=== PATIENT | female | born 1965 | race Two or more races ===

== ENCOUNTER 2023-02-21 11:23 | Inpatient (IN) | payer BC, OTHER ==
[2023-02-21] VITALS (30 sets, daily range): BP systolic 104–251; BP diastolic 40–105; PULSE 52–79; RESP 12–20; TEMP 95.1–98.4; O2SAT 92–99
[~2023-02-21] VITALS: Ht 157.5 cm; Wt 118.0 kg
[2023-02-21] MEDS ORDERED: ROCURONIUM 10MG/ML 10ML VIAL IV ONE ×2 (11:32→11:45)
[2023-02-21] MEDS ORDERED: ETOMIDATE (2MG/ML) 20ML VIAL IV ONE ×2 (11:32→11:45)
[2023-02-21] MEDS ORDERED: PROPOFOL 100 ML IV ONE (11:35)
[2023-02-21] MEDS: PROPOFOL 100 ML IV SCH ×2 (11:50→22:24)
[2023-02-21] MEDS ORDERED: PIPERACILLIN-TAZO 4.5GM 100 ML IV ONE ×2 (12:15→14:30)
[2023-02-21] MEDS ORDERED: CIPROFLOXACIN 400MG/200ML 200 ML IV ONE ×2 (12:15→13:30)
[2023-02-21] MEDS ORDERED: VANCOMYCIN 1GM/250ML 250 ML IV ONE ×2 (12:15→13:30)
[2023-02-21] MEDS ORDERED: SODIUM CHLORIDE 0.9% 2,000 ML IV ONE (12:30)
[2023-02-21 12:35] LABS: Base Excess -7.8 mmol/L (-2.0-2.0)
[2023-02-21 12:41] LABS: INR 1.03 (0.9-1.15); Prothrombin Time 10.8 sec (9.3-11.8)
[2023-02-21] MEDS ORDERED: NITROGLYCERIN 50MG/250ML 250 ML IV ONE (12:45)
[2023-02-21 12:46] LABS: Urine Bacteria MOD /hpf (None Seen); Urine Blood TRACE /uL (Negative); Urine Clarity HAZY (Clear); Urine Color Colorless (Yellow); Urine Protein, UAD 3+ (Negative); Urine Specific Gravity 1.013 (1.001-1.035); Urine Urobilinogen Normal (Negative); Urine WBC 114 /hpf (0 - 5); Urine WBC Clumps PRESENT /hpf (None Seen)
[2023-02-21 12:51] LABS: Basophils # (auto) 0.1 10 ^3/uL (0-0.2); Basophils % (auto) 1.1 % (0.0-2.0); Eosinophils # (auto) 0.2 10 ^3/uL (0-0.8); Eosinophils % (auto) 3.1 % (0.0-7.0); Hematocrit 47.2 % (36.0-46.0); Lymphocytes % (auto) 31.5 % (10.0-50.0); Mean Corpuscular Hemoglobin 27.2 pg (28.0-32.0); Mean Corpuscular Hgb Conc. 29.6 g/dL (32.0-36.0); Mean Corpuscular Volume 91.7 fL (80.0-100.0); Monocytes # (auto) 0.6 10 ^3/uL (0-1.3); Monocytes % (auto) 8.9 % (0.0-12.0); Neutrophils # (auto) 3.6 10 ^3/uL (1.6-8.6); Neutrophils % (auto) 55.4 % (37.0-80.0); Nucleated Red Blood Cells % 0.2 %; Red Blood Cells 5.14 10^6/uL (4.0-5.20); Red Cell Distribution Width 17.1 % (11.8-14.3); White Blood Cell 6.4 10^3/uL (4.4-10.8)
[2023-02-21 12:55] LABS: Acetaminophen < 2.0 UG/ML (10.0-20.0); Salicylate < 3.0 mg/dL (2.8-20.0)
[2023-02-21 13:02] LABS: Alanine Aminotransferase 10 U/L (7-40); Albumin 3.7 g/dL (3.2-4.8); Alkaline Phosphatase 148 U/L (46-116); Anion Gap 10 (5-15); Aspartate Aminotransferase 18 U/L (13-40); BUN/Creatinine Ratio 12.3 (10.0-20.0); Bilirubin, Total < 0.2 mg/dL (0.2-1.0); Blood Alcohol < 3.0 mg/dL (<10); Blood Urea Nitrogen 53 mg/dL (9-23); Calcium 8.4 mg/dL (8.7-10.4); Carbon Dioxide 18 mmol/L (20-30); Chloride 114 mmol/L (98-107); Glucose 136 mg/dL (74-106); Lipase 41 U/L (12-53); Potassium 5.4 mmol/L (3.5-5.1); Sodium 142 mmol/L (136-145); Total Protein 6.9 g/dL (5.7-8.2)
[2023-02-21 13:03] LABS: Amphetamine Screen, Urine Neg (NEGATIVE); Barbiturate Scree,Urine Neg (NEGATIVE); Benzodiazephine Screen, Urine Neg (NEGATIVE); Cannabinoid Screen, Urine Neg (NEGATIVE); Opiate Scree,Urine Neg (NEGATIVE); Phencyclidine Screen, Urine Neg (NEGATIVE)
[2023-02-21 13:18] LABS: Cocaine Screen, Urine Neg (NEGATIVE)
[2023-02-21 13:21] LABS: Base Excess -7.5 mmol/L (-2.0-2.0)
[2023-02-21 13:38] LABS: COVID19 ANTIGEN SOFIA FIA NEGATIVE (NEGATIVE); Rapid Influenza A Negative (Negative); Rapid Influenza B Negative (Negative)
[2023-02-21] MEDS ORDERED: MORPHINE SULFATE INJ 2 MG/ml SYRG IV PRN (14:30)
[2023-02-21] MEDS ORDERED: NITROGLYCERIN 0.4 MG SL TAB SL PRN (14:30)
[2023-02-21] MEDS: SODIUM BICARBONATE 50ML VIAL 50 ML in SOD CHL 0.45% 1,000 ML IV SCH (14:30)
[2023-02-21 16:38] LABS: Magnesium 1.9 mg/dL (1.6-2.6)
[2023-02-21 16:39] LABS: Phosphorus 4.4 mg/dL (2.4-5.1)
[2023-02-21] MEDS ORDERED: DEXTROSE (50%) 50ML SYRG IV PRN (19:00)
[2023-02-21 19:18] LABS: Creatinine, Urine 108.26 mg/dL (30.0-125.0)
[2023-02-21 19:23] LABS: Protein, Urine 550.9 mg/dL (0.0-11.9); Urine Protein/Creatinine Ratio 5.09
[2023-02-21] MEDS ORDERED: QUET300T24 PO (19:32)
[2023-02-21] MEDS ORDERED: LEVO88TA4 PO (19:32)
[2023-02-21] MEDS ORDERED: GABA-1250 PO (19:32)
[2023-02-21] MEDS ORDERED: PANT40TA2 PO (19:32)
[2023-02-21] MEDS ORDERED: HYDR-4072 PO (19:32)
[2023-02-21] MEDS ORDERED: ATOR20TA PO (19:32)
[2023-02-21] MEDS ORDERED: FERR325T24 PO (19:32)
[2023-02-21] MEDS ORDERED: CLOP75TA28 PO (19:32)
[2023-02-21] MEDS ORDERED: AMLO1TAB22 PO (19:32)
[2023-02-21] MEDS ORDERED: NIFE1TAB30 PO (19:32)
[2023-02-21] MEDS ORDERED: CAR125T PO (19:32)
[2023-02-21] MEDS ORDERED: LISI20TA56 PO (19:32)
[2023-02-21] MEDS ORDERED: CYCL-839 PO (19:32)
[2023-02-21 19:44] LABS: Chloride 115 mmol/L (98-107); Sodium 140 mmol/L (136-145)
[2023-02-21 19:45] LABS: Anion Gap 8 (5-15); Carbon Dioxide 17 mmol/L (20-30)
[2023-02-21 19:46] LABS: Calcium 7.8 mg/dL (8.5-10.1)
[2023-02-21 19:51] LABS: BUN/Creatinine Ratio 8.4 (10.0-20.0); Glucose 185 mg/dL (74-106)
[2023-02-21 19:57] LABS: Blood Urea Nitrogen 34 mg/dL (9-23)
[2023-02-21 19:58] LABS: Potassium 5.6 mmol/L (3.5-5.1)
[2023-02-21] MEDS: ACCU-CHEK COMFORT CURVE STRIP VI SCH (21:36)
[2023-02-21] MEDS: PIPERACILLIN-TAZOB 3.375GM 100 ML IV SCH (21:37)
[2023-02-21] MEDS: InsuLIN REG 1unit/0.01ml Soln (100units/ml) SC SCH (21:48)
[2023-02-21] MEDS: ASPirin 300 MG RECTAL SUPP PR SCH (23:41)
[2023-02-21] MEDS ORDERED: CALCIUM GLUC 1,000mg/50ml-NS 50 ML IV ONE (23:45)
[2023-02-21] MEDS ORDERED: ALBUTEROL SULF 2.5 MG/0.5ML(0.5%) NEB SOLN NEB ONE (23:45)
[2023-02-21] MEDS ORDERED: InsuLIN REG 1unit/0.01ml Soln (100units/ml) IV ONE (23:45)
[2023-02-21] MEDS ORDERED: SODIUM BICARBONATE 8.4 % INJ 50ML VIAL IV ONE (23:45)
[2023-02-21] MEDS ORDERED: DEXTROSE (50%) 50ML SYRG IV ONE (23:45)
[2023-02-22] VITALS (100 sets, daily range): BP systolic 114–203; BP diastolic 40–87; PULSE 56–85; RESP 12–27; TEMP 96.3–99.1; O2SAT 91–100
[2023-02-22] MEDS: PROPOFOL 100 ML IV SCH ×7 (01:58→22:10)
[2023-02-22 04:26] LABS: Basophils # (auto) 0.1 10 ^3/uL (0-0.2); Basophils % (auto) 0.8 % (0.0-2.0); Eosinophils # (auto) 0.1 10 ^3/uL (0-0.8); Lymphocytes # (auto) 1.1 10 ^3/uL (0.4-5.4); Monocytes # (auto) 0.8 10 ^3/uL (0-1.3); Monocytes % (auto) 12.3 % (0.0-12.0)
[2023-02-22 04:30] LABS: Eosinophils % (auto) 2.2 % (0.0-7.0); Hematocrit 40.6 % (36.0-46.0); Hemoglobin 12.6 g/dL (12.2-16.2); Lymphocytes % (auto) 16.6 % (10.0-50.0); Mean Corpuscular Hemoglobin 27.3 pg (28.0-32.0); Mean Corpuscular Hgb Conc. 31.1 g/dL (32.0-36.0); Mean Corpuscular Volume 87.8 fL (80.0-100.0); Neutrophils # (auto) 4.5 10 ^3/uL (1.6-8.6); Neutrophils % (auto) 68.1 % (37.0-80.0); Nucleated Red Blood Cells % 0.1 %; Red Blood Cells 4.63 10^6/uL (4.0-5.20); Red Cell Distribution Width 16.4 % (11.8-14.3); White Blood Cell 6.6 10^3/uL (4.4-10.8)
[2023-02-22] MEDS: SODIUM BICARBONATE 50ML VIAL 50 ML in SOD CHL 0.45% 1,000 ML IV SCH ×4 (04:30→20:39)
[2023-02-22 04:55] LABS: Albumin 3.1 g/dL (3.2-4.8); Alkaline Phosphatase 109 U/L (46-116); Anion Gap 9 (5-15); Aspartate Aminotransferase 17 U/L (13-40); BUN/Creatinine Ratio 8.5 (10.0-20.0); Blood Urea Nitrogen 37 mg/dL (9-23); Calcium 8.2 mg/dL (8.7-10.4); Carbon Dioxide 20 mmol/L (20-30); Chloride 112 mmol/L (98-107); Glucose 252 mg/dL (74-106); Potassium 4.8 mmol/L (3.5-5.1); Sodium 141 mmol/L (136-145)
[2023-02-22 04:56] LABS: Bilirubin, Total 0.2 mg/dL (0.2-1.0); Total Protein 6.1 g/dL (5.7-8.2)
[2023-02-22 04:58] LABS: Alanine Aminotransferase < 9 U/L (7-40)
[2023-02-22] MEDS: ACCU-CHEK COMFORT CURVE STRIP VI SCH ×4 (06:39→22:19)
[2023-02-22] MEDS: InsuLIN REG 1unit/0.01ml Soln (100units/ml) SC SCH ×5 (06:41→22:18)
[2023-02-22] MEDS: PIPERACILLIN-TAZOB 3.375GM 100 ML IV SCH ×2 (09:45→22:19)
[2023-02-22] MEDS: ASPirin 300 MG RECTAL SUPP PR SCH (10:38)
[2023-02-22] MEDS: CLOPIDOGREL BISULFATE 75 MG TAB PO SCH (11:27)
[2023-02-22] MEDS: CARVEDILOL 12.5 MG TAB PO SCH ×2 (11:27→22:19)
[2023-02-22 14:43] LABS: INR 1.1 (0.9-1.15); Partial Thromboplastin Time 27.5 SEC (24.5-34.5); Prothrombin Time 11.5 sec (9.3-11.8)
[2023-02-22] MEDS ORDERED: LIDOCAINE 1% (LOCAL ANESTH.) PF 5ml SDV ID ONE (15:00)
[2023-02-22] MEDS: DOPamine 1600MCG/ML D5W 250 ML IV SCH (15:41)
[2023-02-22] MEDS: IPRATROPIUM BROM 0.5 MG/2.5ML INH SOL NEB PRN ×2 (18:24→22:29)
[2023-02-22] MEDS: ALBUTEROL MEDNEB 2.5 mg/3ml NEB NEB PRN ×2 (18:24→22:29)
[2023-02-22] MEDS ORDERED: CARVEDILOL 12.5 MG TAB PO SCH (22:00)
[2023-02-22] MEDS: SODIUM CHLOR 0.9% PF (SALINE LOCK) 10ML VIAL/SYR IV SCH (22:19)
[2023-02-23] VITALS (113 sets, daily range): BP systolic 87–164; BP diastolic 40–68; PULSE 56–98; RESP 10–23; TEMP 97.9–99.3; O2SAT 91–100
[2023-02-23] MEDS: PROPOFOL 100 ML IV SCH ×3 (01:49→09:34)
[2023-02-23] MEDS: ALBUTEROL MEDNEB 2.5 mg/3ml NEB NEB PRN ×2 (02:10→18:27)
[2023-02-23] MEDS: IPRATROPIUM BROM 0.5 MG/2.5ML INH SOL NEB PRN ×2 (02:10→18:27)
[2023-02-23 04:21] LABS: Basophils # (auto) 0.1 10 ^3/uL (0-0.2); Basophils % (auto) 1.2 % (0.0-2.0); Eosinophils # (auto) 0.3 10 ^3/uL (0-0.8); Eosinophils % (auto) 4.2 % (0.0-7.0); Hematocrit 37.4 % (36.0-46.0); Hemoglobin 11.9 g/dL (12.2-16.2); Lymphocytes # (auto) 1.6 10 ^3/uL (0.4-5.4); Lymphocytes % (auto) 23.7 % (10.0-50.0); Mean Corpuscular Hemoglobin 27.2 pg (28.0-32.0); Mean Corpuscular Hgb Conc. 31.9 g/dL (32.0-36.0); Mean Corpuscular Volume 85.2 fL (80.0-100.0); Monocytes # (auto) 0.8 10 ^3/uL (0-1.3); Monocytes % (auto) 11.7 % (0.0-12.0); Neutrophils # (auto) 3.9 10 ^3/uL (1.6-8.6); Neutrophils % (auto) 59.2 % (37.0-80.0); Red Blood Cells 4.39 10^6/uL (4.0-5.20); Red Cell Distribution Width 15.6 % (11.8-14.3); White Blood Cell 6.6 10^3/uL (4.4-10.8)
[2023-02-23 04:30] LABS: Chloride 108 mmol/L (98-107); Potassium 4.1 mmol/L (3.5-5.1); Sodium 141 mmol/L (136-145)
[2023-02-23 04:31] LABS: Calcium 7.9 mg/dL (8.5-10.1)
[2023-02-23 04:32] LABS: Anion Gap 11 (5-15); Carbon Dioxide 22 mmol/L (20-30)
[2023-02-23 04:37] LABS: BUN/Creatinine Ratio 9.4 (10.0-20.0); Blood Urea Nitrogen 39 mg/dL (9-23); Glucose 257 mg/dL (74-106)
[2023-02-23] MEDS: SODIUM BICARBONATE 50ML VIAL 50 ML in SOD CHL 0.45% 1,000 ML IV SCH ×3 (04:52→23:03)
[2023-02-23] MEDS: ACCU-CHEK COMFORT CURVE STRIP VI SCH ×4 (07:23→20:45)
[2023-02-23] MEDS: LEVOTHYROXINE SODIUM 88 MCG TAB PO SCH (07:23)
[2023-02-23] MEDS: InsuLIN REG 1unit/0.01ml Soln (100units/ml) SC SCH ×4 (07:38→22:00)
[2023-02-23 07:47] LABS: Base Excess -4.3 mmol/L (-2.0-2.0)
[2023-02-23] MEDS: PIPERACILLIN-TAZOB 3.375GM 100 ML IV SCH ×2 (09:55→20:44)
[2023-02-23] MEDS: CLOPIDOGREL BISULFATE 75 MG TAB PO SCH (09:55)
[2023-02-23] MEDS: CARVEDILOL 12.5 MG TAB PO SCH ×3 (09:55→20:44)
[2023-02-23] MEDS: SODIUM CHLOR 0.9% PF (SALINE LOCK) 10ML VIAL/SYR IV SCH ×2 (09:58→20:45)
[2023-02-23] MEDS ORDERED: CLOPIDOGREL BISULFATE 75 MG TAB PO SCH (10:00)
[2023-02-23] MEDS: DOPamine 1600MCG/ML D5W 250 ML IV SCH (15:14)
[2023-02-23] MEDS ORDERED: InsuLIN REG 1unit/0.01ml Soln (100units/ml) ONE (17:32)
[2023-02-24] VITALS (96 sets, daily range): BP systolic 125–171; BP diastolic 43–86; PULSE 60–93; RESP 9–22; TEMP 97.2–99.7; O2SAT 92–98
[2023-02-24] MEDS: LEVOTHYROXINE SODIUM 88 MCG TAB PO SCH (04:05)
[2023-02-24] MEDS: ACCU-CHEK COMFORT CURVE STRIP VI SCH ×4 (04:05→21:45)
[2023-02-24 04:13] LABS: Basophils # (auto) 0.1 10 ^3/uL (0-0.2); Basophils % (auto) 0.7 % (0.0-2.0); Eosinophils # (auto) 0.1 10 ^3/uL (0-0.8); Eosinophils % (auto) 1.3 % (0.0-7.0); Hematocrit 40.7 % (36.0-46.0); Hemoglobin 13.1 g/dL (12.2-16.2); Lymphocytes # (auto) 1.5 10 ^3/uL (0.4-5.4); Lymphocytes % (auto) 15.2 % (10.0-50.0); Mean Corpuscular Hemoglobin 27.2 pg (28.0-32.0); Mean Corpuscular Hgb Conc. 32.1 g/dL (32.0-36.0); Mean Corpuscular Volume 84.6 fL (80.0-100.0); Monocytes # (auto) 0.8 10 ^3/uL (0-1.3); Monocytes % (auto) 8.5 % (0.0-12.0); Neutrophils # (auto) 7.4 10 ^3/uL (1.6-8.6); Neutrophils % (auto) 74.3 % (37.0-80.0); Nucleated Red Blood Cells % 0.1 %; Red Blood Cells 4.81 10^6/uL (4.0-5.20); Red Cell Distribution Width 16.1 % (11.8-14.3)
[2023-02-24 04:19] LABS: Anion Gap 12 (5-15); Calcium 8.2 mg/dL (8.7-10.4); Carbon Dioxide 22 mmol/L (20-30); Chloride 104 mmol/L (98-107); Potassium 4.3 mmol/L (3.5-5.1); Sodium 138 mmol/L (136-145)
[2023-02-24 04:25] LABS: BUN/Creatinine Ratio 8.4 (10.0-20.0); Blood Urea Nitrogen 38 mg/dL (9-23); Glucose 276 mg/dL (74-106)
[2023-02-24] MEDS: InsuLIN REG 1unit/0.01ml Soln (100units/ml) SC SCH ×4 (05:21→21:54)
[2023-02-24] MEDS: ALBUTEROL MEDNEB 2.5 mg/3ml NEB NEB PRN ×2 (06:00→10:53)
[2023-02-24] MEDS: IPRATROPIUM BROM 0.5 MG/2.5ML INH SOL NEB PRN ×2 (06:00→10:53)
[2023-02-24 07:10] LABS: Base Excess -2.5 mmol/L (-2.0-2.0)
[2023-02-24] MEDS: SODIUM BICARBONATE 50ML VIAL 50 ML in SOD CHL 0.45% 1,000 ML IV SCH ×3 (07:59→16:38)
[2023-02-24] MEDS: cefTRIAXone 1GM/50ML D5W 50 ML IV SCH (10:02)
[2023-02-24] MEDS: CLOPIDOGREL BISULFATE 75 MG TAB PO SCH (10:03)
[2023-02-24] MEDS: CARVEDILOL 12.5 MG TAB PO SCH ×2 (10:03→21:56)
[2023-02-24] MEDS: SODIUM CHLOR 0.9% PF (SALINE LOCK) 10ML VIAL/SYR IV SCH (10:04)
[2023-02-24] MEDS ORDERED: EPINEPHrine HCL 0.5 ML NEB ONE ×2 (10:30→10:44)
[2023-02-24] MEDS ORDERED: DexAMETHasone SOD PHOS 4 MG/1ML SDV INJ IV ONE (10:45)
[2023-02-24] MEDS ORDERED: ONDANSETRON HCL 4 MG/2 ML VIAL ONE (10:47)
[2023-02-24] MEDS: ONDANSETRON HCL 4 MG/2 ML VIAL IV PRN ×3 (11:03→22:58)
[2023-02-24] MEDS: DOPamine 1600MCG/ML D5W 250 ML IV SCH (11:22)
[2023-02-24] MEDS: PROPOFOL 100 ML IV SCH (11:22)
[2023-02-24 11:46] LABS: Base Excess -4.4 mmol/L (-2.0-2.0)
[2023-02-24] MEDS ORDERED: FUROSEMIDE 100 MG/10ML VIAL IV ONE (21:15)
[2023-02-24] MEDS: HYDROcodone-ACET 5/325MG TAB PO PRN (22:40)
[2023-02-25] VITALS (61 sets, daily range): BP systolic 118–172; BP diastolic 45–70; PULSE 58–94; RESP 10–21; TEMP 98.1–98.4; O2SAT 80–98
[2023-02-25] MEDS: ONDANSETRON HCL 4 MG/2 ML VIAL IV PRN ×4 (03:18→22:57)
[2023-02-25 05:06] LABS: Basophils # (auto) 0.1 10 ^3/uL (0-0.2); Basophils % (auto) 0.6 % (0.0-2.0); Eosinophils # (auto) 0 10 ^3/uL (0-0.8); Hemoglobin 13.3 g/dL (12.2-16.2); Lymphocytes # (auto) 1.5 10 ^3/uL (0.4-5.4); Monocytes # (auto) 0.9 10 ^3/uL (0-1.3)
[2023-02-25 05:10] LABS: Eosinophils % (auto) 0.2 % (0.0-7.0); Hematocrit 40.6 % (36.0-46.0); Mean Corpuscular Hemoglobin 27.3 pg (28.0-32.0); Mean Corpuscular Hgb Conc. 32.7 g/dL (32.0-36.0); Mean Corpuscular Volume 83.4 fL (80.0-100.0); Monocytes % (auto) 8.8 % (0.0-12.0); Neutrophils # (auto) 7.8 10 ^3/uL (1.6-8.6); Neutrophils % (auto) 75.4 % (37.0-80.0); Red Blood Cells 4.86 10^6/uL (4.0-5.20); Red Cell Distribution Width 15.8 % (11.8-14.3); White Blood Cell 10.3 10^3/uL (4.4-10.8)
[2023-02-25] MEDS: SODIUM CHLOR 0.9% PF (SALINE LOCK) 10ML VIAL/SYR IV SCH ×3 (05:17→22:23)
[2023-02-25 05:34] LABS: Calcium 7.8 mg/dL (8.7-10.4)
[2023-02-25 05:36] LABS: Chloride 99 mmol/L (98-107); Potassium 3.9 mmol/L (3.5-5.1); Sodium 135 mmol/L (136-145)
[2023-02-25 05:39] LABS: BUN/Creatinine Ratio 9.9 (10.0-20.0); Glucose 354 mg/dL (74-106)
[2023-02-25 05:40] LABS: Blood Urea Nitrogen 49 mg/dL (9-23)
[2023-02-25 05:59] LABS: Anion Gap 12 (5-15); Carbon Dioxide 24 mmol/L (20-30)
[2023-02-25] MEDS: ACCU-CHEK COMFORT CURVE STRIP VI SCH ×4 (06:04→22:22)
[2023-02-25] MEDS: InsuLIN REG 1unit/0.01ml Soln (100units/ml) SC SCH ×4 (06:14→22:24)
[2023-02-25] MEDS: LEVOTHYROXINE SODIUM 88 MCG TAB PO SCH (07:00)
[2023-02-25] MEDS ORDERED: DEXTROSE (50%) 50ML SYRG IV PRN (08:00)
[2023-02-25] MEDS: cefTRIAXone 1GM/50ML D5W 50 ML IV SCH (09:38)
[2023-02-25] MEDS: CARVEDILOL 12.5 MG TAB PO SCH ×2 (09:39→22:00)
[2023-02-25] MEDS ORDERED: BUMETANIDE INJECTION 12.5 MG in GIVE UN-DILUTED 0 ML IV SCH (10:15)
[2023-02-25 11:53] LABS: Basophils # (auto) 0.1 10 ^3/uL (0-0.2); Basophils % (auto) 0.8 % (0.0-2.0); Eosinophils # (auto) 0.1 10 ^3/uL (0-0.8); Eosinophils % (auto) 0.5 % (0.0-7.0); Hematocrit 38.4 % (36.0-46.0); Hemoglobin 12.2 g/dL (12.2-16.2); Lymphocytes # (auto) 1.4 10 ^3/uL (0.4-5.4); Mean Corpuscular Hemoglobin 27.1 pg (28.0-32.0); Mean Corpuscular Hgb Conc. 31.9 g/dL (32.0-36.0); Mean Corpuscular Volume 84.9 fL (80.0-100.0); Monocytes % (auto) 10.4 % (0.0-12.0); Neutrophils # (auto) 7.4 10 ^3/uL (1.6-8.6); Neutrophils % (auto) 74.3 % (37.0-80.0); Red Blood Cells 4.52 10^6/uL (4.0-5.20); Red Cell Distribution Width 15.3 % (11.8-14.3); White Blood Cell 9.9 10^3/uL (4.4-10.8)
[2023-02-25] MEDS: HYDROmorphone HCL 2 MG/ML VL/or syr IV PRN (21:19)
[2023-02-26] VITALS (83 sets, daily range): BP systolic 112–146; BP diastolic 44–149; PULSE 66–82; RESP 8–16; TEMP 97.9–98.7; O2SAT 88–96
[2023-02-26] MEDS: HYDROmorphone HCL 2 MG/ML VL/or syr IV PRN ×4 (03:12→20:41)
[2023-02-26] MEDS: ONDANSETRON HCL 4 MG/2 ML VIAL IV PRN ×5 (03:12→23:45)
[2023-02-26 03:55] LABS: Anion Gap 11 (5-15); Carbon Dioxide 28 mmol/L (20-30); Chloride 102 mmol/L (98-107); Potassium 3.4 mmol/L (3.5-5.1); Sodium 141 mmol/L (136-145)
[2023-02-26 03:56] LABS: Calcium 7.8 mg/dL (8.5-10.1)
[2023-02-26 04:01] LABS: BUN/Creatinine Ratio 8.6 (10.0-20.0); Blood Urea Nitrogen 50 mg/dL (9-23); Glucose 190 mg/dL (74-106)
[2023-02-26 04:31] LABS: Basophils # (auto) 0.1 10 ^3/uL (0-0.2); Basophils % (auto) 0.7 % (0.0-2.0); Eosinophils # (auto) 0.2 10 ^3/uL (0-0.8); Eosinophils % (auto) 1.6 % (0.0-7.0); Hematocrit 38.6 % (36.0-46.0); Hemoglobin 12.3 g/dL (12.2-16.2); Lymphocytes # (auto) 1.8 10 ^3/uL (0.4-5.4); Lymphocytes % (auto) 17.8 % (10.0-50.0); Mean Corpuscular Volume 84.4 fL (80.0-100.0); Monocytes # (auto) 1.3 10 ^3/uL (0-1.3); Monocytes % (auto) 12.9 % (0.0-12.0); Red Blood Cells 4.57 10^6/uL (4.0-5.20); Red Cell Distribution Width 15.3 % (11.8-14.3); White Blood Cell 10.4 10^3/uL (4.4-10.8)
[2023-02-26] MEDS: LEVOTHYROXINE SODIUM 88 MCG TAB PO SCH (06:24)
[2023-02-26] MEDS: ACCU-CHEK COMFORT CURVE STRIP VI SCH ×4 (06:24→22:55)
[2023-02-26] MEDS: InsuLIN REG 1unit/0.01ml Soln (100units/ml) SC SCH ×4 (06:26→22:57)
[2023-02-26] MEDS ORDERED: POTASSIUM CHL 20MEQ/100ML 100 ML IV ONE (06:45)
[2023-02-26] MEDS: cefTRIAXone 1GM/50ML D5W 50 ML IV SCH (09:19)
[2023-02-26] MEDS: SODIUM CHLOR 0.9% PF (SALINE LOCK) 10ML VIAL/SYR IV SCH ×2 (10:00→22:55)
[2023-02-26] MEDS: CARVEDILOL 12.5 MG TAB PO SCH ×2 (10:00→22:00)
[2023-02-26] MEDS: BUMETANIDE 2.5mg/10ml (0.25 mg/ml) INJ IV SCH (15:16)
[2023-02-26] MEDS: niCARdipine 50 MG in SODIUM CHL 0.9% 230 ML IV SCH ×3 (16:44→23:14)
[2023-02-27] VITALS (105 sets, daily range): BP systolic 107–153; BP diastolic 37–60; PULSE 75–90; RESP 8–22; TEMP 98.1–99; O2SAT 89–100
[2023-02-27] MEDS: ONDANSETRON HCL 4 MG/2 ML VIAL IV PRN ×3 (02:53→20:05)
[2023-02-27 04:32] LABS: Alanine Aminotransferase 24 U/L (7-40); Albumin 3.5 g/dL (3.2-4.8); Alkaline Phosphatase 122 U/L (46-116); Anion Gap 15 (5-15); Aspartate Aminotransferase 29 U/L (13-40); BUN/Creatinine Ratio 8.7 (10.0-20.0); Calcium 7.6 mg/dL (8.7-10.4); Carbon Dioxide 25 mmol/L (20-30); Chloride 102 mmol/L (98-107); Glucose 197 mg/dL (74-106); Potassium 3.8 mmol/L (3.5-5.1); Sodium 142 mmol/L (136-145)
[2023-02-27 04:33] LABS: % Iron Saturation 28.9 % (15-50); Bilirubin, Total 0.2 mg/dL (0.2-1.0); Total Protein 6.5 g/dL (5.7-8.2)
[2023-02-27] MEDS: niCARdipine 50 MG in SODIUM CHL 0.9% 230 ML IV SCH (04:42)
[2023-02-27 04:54] LABS: Blood Urea Nitrogen 61 mg/dL (9-23)
[2023-02-27] MEDS: BUMETANIDE 2.5mg/10ml (0.25 mg/ml) INJ IV SCH ×2 (05:32→17:44)
[2023-02-27] MEDS: ACCU-CHEK COMFORT CURVE STRIP VI SCH ×4 (06:57→22:03)
[2023-02-27] MEDS: InsuLIN REG 1unit/0.01ml Soln (100units/ml) SC SCH ×4 (06:58→22:06)
[2023-02-27] MEDS ORDERED: SODIUM CHL 0.9% 1000 ML BAG XX ONE (07:00)
[2023-02-27] MEDS: LEVOTHYROXINE SODIUM 88 MCG TAB PO SCH (07:00)
[2023-02-27] MEDS: cefTRIAXone 1GM/50ML D5W 50 ML IV SCH (08:40)
[2023-02-27] MEDS: SODIUM CHLOR 0.9% PF (SALINE LOCK) 10ML VIAL/SYR IV SCH ×2 (10:00→22:03)
[2023-02-27] MEDS: CARVEDILOL 12.5 MG TAB PO SCH ×2 (10:00→22:00)
[2023-02-27] MEDS: HYDROmorphone HCL 2 MG/ML VL/or syr IV PRN (20:00)
[2023-02-28] VITALS (57 sets, daily range): BP systolic 124–171; BP diastolic 41–76; PULSE 82–105; RESP 9–26; TEMP 97.5–99.1; O2SAT 92–99
[2023-02-28] MEDS: ONDANSETRON HCL 4 MG/2 ML VIAL IV PRN ×3 (00:01→17:28)
[2023-02-28] MEDS: HYDROmorphone HCL 2 MG/ML VL/or syr IV PRN ×2 (03:51→17:30)
[2023-02-28 04:19] LABS: Basophils # (auto) 0.1 10 ^3/uL (0-0.2); Basophils % (auto) 0.7 % (0.0-2.0); Eosinophils # (auto) 0.1 10 ^3/uL (0-0.8); Eosinophils % (auto) 0.8 % (0.0-7.0); Hematocrit 35.8 % (36.0-46.0); Hemoglobin 11.6 g/dL (12.2-16.2); Lymphocytes # (auto) 1.5 10 ^3/uL (0.4-5.4); Lymphocytes % (auto) 12.2 % (10.0-50.0); Mean Corpuscular Hemoglobin 27.4 pg (28.0-32.0); Mean Corpuscular Hgb Conc. 32.5 g/dL (32.0-36.0); Mean Corpuscular Volume 84.3 fL (80.0-100.0); Monocytes # (auto) 1.3 10 ^3/uL (0-1.3); Neutrophils # (auto) 9.6 10 ^3/uL (1.6-8.6); Neutrophils % (auto) 76.3 % (37.0-80.0); Nucleated Red Blood Cells % 0.1 %; Red Blood Cells 4.24 10^6/uL (4.0-5.20); Red Cell Distribution Width 15.1 % (11.8-14.3); White Blood Cell 12.6 10^3/uL (4.4-10.8)
[2023-02-28 04:22] LABS: Anion Gap 18 (5-15); Carbon Dioxide 24 mmol/L (20-30); Chloride 102 mmol/L (98-107); Potassium 3.6 mmol/L (3.5-5.1); Sodium 144 mmol/L (136-145)
[2023-02-28 04:23] LABS: Calcium 8.1 mg/dL (8.7-10.4)
[2023-02-28 04:29] LABS: BUN/Creatinine Ratio 7.8 (10.0-20.0); Blood Urea Nitrogen 52 mg/dL (9-23); Glucose 181 mg/dL (74-106)
[2023-02-28] MEDS: LEVOTHYROXINE SODIUM 88 MCG TAB PO SCH (06:28)
[2023-02-28] MEDS: BUMETANIDE 2.5mg/10ml (0.25 mg/ml) INJ IV SCH ×2 (06:28→17:29)
[2023-02-28] MEDS: ACCU-CHEK COMFORT CURVE STRIP VI SCH ×4 (06:29→22:19)
[2023-02-28] MEDS: InsuLIN REG 1unit/0.01ml Soln (100units/ml) SC SCH ×4 (06:44→22:00)
[2023-02-28] MEDS ORDERED: SODIUM CHL 0.9% 1000 ML BAG XX ONE ×2 (07:00→15:00)
[2023-02-28] MEDS: niCARdipine 50 MG in SODIUM CHL 0.9% 230 ML IV SCH (08:15)
[2023-02-28] MEDS: CARVEDILOL 12.5 MG TAB PO SCH ×2 (10:00→22:00)
[2023-02-28] MEDS: cefTRIAXone 1GM/50ML D5W 50 ML IV SCH (10:51)
[2023-02-28] MEDS: SODIUM CHLOR 0.9% PF (SALINE LOCK) 10ML VIAL/SYR IV SCH ×2 (10:51→22:46)
[2023-02-28] MEDS ORDERED: LIDOCAINE 2%HCL (LOCAL ANESTH.) INJ 20ML MDV ONE (13:33)
[2023-02-28] MEDS ORDERED: HEPARIN SODIUM (PORCINE) 5000 UNITS/ML 1ML VIAL ONE (13:43)
[2023-02-28] MEDS ORDERED: fentaNYL CITRATE 100 MCG/2 ML VL ONE (13:43)
[2023-02-28] MEDS ORDERED: MIDAZOLAM HCL 2MG/2ML 2ml VIAL (1mg/ml) ONE (13:44)
[2023-02-28] MEDS ORDERED: ceFAZolin 1GM VL ONE (14:05)
[2023-02-28] MEDS ORDERED: ceFAZolin 1GM/50ML 50 ML IV ONE (14:05)
[2023-02-28] MEDS ORDERED: ALBUMIN 25% 100 ML IV PRN (15:00)
[2023-02-28] MEDS: hydrALAZINE HCL 20 MG/ML VL IV PRN (22:45)
[2023-03-01] VITALS (7 sets, daily range): BP systolic 153–175; BP diastolic 61–78; PULSE 80–89; RESP 16–20; TEMP 97.9–98.1; O2SAT 94–99
[2023-03-01] MEDS: ONDANSETRON HCL 4 MG/2 ML VIAL IV PRN ×4 (01:26→22:24)
[2023-03-01] MEDS: HYDROmorphone HCL 2 MG/ML VL/or syr IV PRN ×3 (04:47→22:11)
[2023-03-01] MEDS: hydrALAZINE HCL 20 MG/ML VL IV PRN ×2 (04:49→22:12)
[2023-03-01] MEDS: BUMETANIDE 2.5mg/10ml (0.25 mg/ml) INJ IV SCH ×2 (05:38→17:55)
[2023-03-01 06:26] LABS: Basophils # (auto) 0.1 10 ^3/uL (0-0.2); Basophils % (auto) 0.4 % (0.0-2.0); Eosinophils # (auto) 0.1 10 ^3/uL (0-0.8); Eosinophils % (auto) 0.6 % (0.0-7.0); Hematocrit 41.3 % (36.0-46.0); Lymphocytes # (auto) 1.7 10 ^3/uL (0.4-5.4); Lymphocytes % (auto) 13.1 % (10.0-50.0); Mean Corpuscular Hemoglobin 27.2 pg (28.0-32.0); Mean Corpuscular Hgb Conc. 31.4 g/dL (32.0-36.0); Mean Corpuscular Volume 86.7 fL (80.0-100.0); Monocytes # (auto) 1.3 10 ^3/uL (0-1.3); Monocytes % (auto) 9.9 % (0.0-12.0); Neutrophils # (auto) 9.8 10 ^3/uL (1.6-8.6); Nucleated Red Blood Cells % 0.1 %; Red Blood Cells 4.76 10^6/uL (4.0-5.20); Red Cell Distribution Width 15.4 % (11.8-14.3); White Blood Cell 12.9 10^3/uL (4.4-10.8)
[2023-03-01 06:27] LABS: Alanine Aminotransferase 23 U/L (7-40); Albumin 3.5 g/dL (3.2-4.8); Alkaline Phosphatase 154 U/L (46-116); Anion Gap 17 (5-15); Aspartate Aminotransferase 29 U/L (13-40); BUN/Creatinine Ratio 5.6 (10.0-20.0); Bilirubin, Total 0.2 mg/dL (0.2-1.0); Calcium 8.1 mg/dL (8.5-10.1); Carbon Dioxide 20 mmol/L (20-30); Chloride 102 mmol/L (98-107); Cholesterol 151 mg/dL (< 200); Glucose 163 mg/dL (74-106); HDL Cholesterol 50 mg/dL (40-59); LDL Cholesterol 75 mg/dL (< 100); Potassium 3.6 mmol/L (3.5-5.1); Sodium 139 mmol/L (136-145); Total Protein 6.7 g/dL (5.7-8.2); Triglycerides 170 mg/dL (< 150)
[2023-03-01 06:35] LABS: Blood Urea Nitrogen 31 mg/dL (9-23)
[2023-03-01] MEDS: LEVOTHYROXINE SODIUM 25 MCG TAB PO SCH (06:55)
[2023-03-01] MEDS: InsuLIN REG 1unit/0.01ml Soln (100units/ml) SC SCH ×4 (07:01→22:09)
[2023-03-01] MEDS: ACCU-CHEK COMFORT CURVE STRIP VI SCH ×4 (07:01→22:10)
[2023-03-01] MEDS: cefTRIAXone 1GM/50ML D5W 50 ML IV SCH (09:41)
[2023-03-01] MEDS: SODIUM CHLOR 0.9% PF (SALINE LOCK) 10ML VIAL/SYR IV SCH ×2 (09:41→22:00)
[2023-03-01] MEDS: CARVEDILOL 12.5 MG TAB PO SCH ×3 (10:00→22:00)
[2023-03-01] MEDS: amLODIPine BESYLATE 5 MG TAB PO SCH ×2 (10:00→11:33)
[2023-03-01] MEDS ORDERED: metOLazone 5 MG TAB PO ONE (11:45)
[2023-03-01] MEDS ORDERED: GASTROGRAFIN 120 ML SOL ONE (13:10)
[2023-03-02] VITALS (7 sets, daily range): BP systolic 146–190; BP diastolic 65–96; PULSE 76–94; RESP 14–22; TEMP 97.7–98.7; O2SAT 93–99
[2023-03-02] MEDS: ONDANSETRON HCL 4 MG/2 ML VIAL IV PRN ×4 (02:21→20:36)
[2023-03-02] MEDS: BUMETANIDE 2.5mg/10ml (0.25 mg/ml) INJ IV SCH ×3 (05:09→17:43)
[2023-03-02] MEDS: ACCU-CHEK COMFORT CURVE STRIP VI SCH ×4 (06:10→21:46)
[2023-03-02] MEDS: LEVOTHYROXINE SODIUM 25 MCG TAB PO SCH (06:10)
[2023-03-02] MEDS: InsuLIN REG 1unit/0.01ml Soln (100units/ml) SC SCH ×4 (06:10→21:50)
[2023-03-02] MEDS ORDERED: SODIUM CHL 0.9% 1000 ML BAG XX ONE (07:00)
[2023-03-02] MEDS: cefTRIAXone 1GM/50ML D5W 50 ML IV SCH (08:48)
[2023-03-02] MEDS: HYDROmorphone HCL 2 MG/ML VL/or syr IV PRN ×2 (08:49→19:01)
[2023-03-02 09:29] LABS: Anion Gap 15 (5-15); Carbon Dioxide 26 mmol/L (20-30); Chloride 99 mmol/L (98-107); Potassium 3.3 mmol/L (3.5-5.1); Sodium 140 mmol/L (136-145)
[2023-03-02 09:30] LABS: Calcium 9.1 mg/dL (8.5-10.1)
[2023-03-02 09:35] LABS: % Iron Saturation 32.5 % (15-50); BUN/Creatinine Ratio 7.2 (10.0-20.0); Blood Urea Nitrogen 30 mg/dL (9-23); Glucose 128 mg/dL (74-106)
[2023-03-02] MEDS: SODIUM CHLOR 0.9% PF (SALINE LOCK) 10ML VIAL/SYR IV SCH ×2 (10:00→22:00)
[2023-03-02] MEDS: amLODIPine BESYLATE 5 MG TAB PO SCH (10:30)
[2023-03-02] MEDS: CARVEDILOL 12.5 MG TAB PO SCH ×2 (10:31→21:44)
[2023-03-02] MEDS ORDERED: EPOETIN ALFA-EPBX 10,000 UNIT/1ML VIAL SC ONE (21:00)
[2023-03-02] MEDS: HYDROcodone-ACET 5/325MG TAB PO PRN (21:44)
[2023-03-03] MEDS: ONDANSETRON HCL 4 MG/2 ML VIAL IV PRN ×5 (00:42→22:25)
[2023-03-03] MEDS: hydrALAZINE HCL 20 MG/ML VL IV PRN ×3 (02:14→18:09)
[2023-03-03] MEDS: HYDROmorphone HCL 2 MG/ML VL/or syr IV PRN (03:09)
[2023-03-03] MEDS: HYDROcodone-ACET 5/325MG TAB PO PRN ×2 (03:56→18:10)
[2023-03-03 05:00] VITALS: TEMP 97.7
[2023-03-03] MEDS: BUMETANIDE 2.5mg/10ml (0.25 mg/ml) INJ IV SCH ×2 (06:19→18:11)
[2023-03-03] MEDS: LEVOTHYROXINE SODIUM 25 MCG TAB PO SCH (06:19)
[2023-03-03] MEDS: ACCU-CHEK COMFORT CURVE STRIP VI SCH ×4 (06:26→22:35)
[2023-03-03] MEDS: InsuLIN REG 1unit/0.01ml Soln (100units/ml) SC SCH ×4 (06:28→22:34)
[2023-03-03] MEDS: amLODIPine BESYLATE 5 MG TAB PO SCH (08:11)
[2023-03-03] MEDS: cefTRIAXone 1GM/50ML D5W 50 ML IV SCH (08:12)
[2023-03-03] MEDS: CARVEDILOL 12.5 MG TAB PO SCH ×2 (08:12→22:25)
[2023-03-03] MEDS: SODIUM CHLOR 0.9% PF (SALINE LOCK) 10ML VIAL/SYR IV SCH ×2 (08:13→22:25)
[2023-03-03 08:40] LABS: Basophils # (auto) 0.1 10 ^3/uL (0-0.2); Basophils % (auto) 0.4 % (0.0-2.0); Eosinophils # (auto) 0.3 10 ^3/uL (0-0.8); Eosinophils % (auto) 2.5 % (0.0-7.0); Hematocrit 40.7 % (36.0-46.0); Hemoglobin 13.2 g/dL (12.2-16.2); Lymphocytes # (auto) 1.4 10 ^3/uL (0.4-5.4); Lymphocytes % (auto) 12.4 % (10.0-50.0); Mean Corpuscular Hemoglobin 27.3 pg (28.0-32.0); Mean Corpuscular Hgb Conc. 32.6 g/dL (32.0-36.0); Mean Corpuscular Volume 83.8 fL (80.0-100.0); Monocytes # (auto) 1.1 10 ^3/uL (0-1.3); Monocytes % (auto) 9.7 % (0.0-12.0); Neutrophils # (auto) 8.7 10 ^3/uL (1.6-8.6); Red Blood Cells 4.85 10^6/uL (4.0-5.20); White Blood Cell 11.6 10^3/uL (4.4-10.8)
[2023-03-03 08:55] LABS: Chloride 99 mmol/L (98-107); Potassium 3.3 mmol/L (3.5-5.1); Sodium 136 mmol/L (136-145)
[2023-03-03 08:56] LABS: Anion Gap 10 (5-15); Calcium 8.2 mg/dL (8.5-10.1); Carbon Dioxide 27 mmol/L (20-30)
[2023-03-03 09:00] VITALS: BP 176/74; PULSE 78; RESP 18; TEMP 97.5; O2SAT 92
[2023-03-03 09:01] LABS: Glucose 231 mg/dL (74-106)
[2023-03-03 09:08] LABS: Blood Urea Nitrogen 47 mg/dL (9-23)
[2023-03-03 09:14] LABS: Hepatitis B Surface Antigen Negative (Negative)
[2023-03-03 09:35] LABS: Hepatitis A Ab IgM Negative; Hepatitis B Core IgM Negative
[2023-03-03 09:36] LABS: Hepatitis C Antibody Negative (Negative)
[2023-03-03 13:00] VITALS: BP 169/69; PULSE 79; RESP 18; TEMP 98
[2023-03-03] MEDS: NIFEdipine ER 30 MG TAB PO SCH (14:44)
[2023-03-03 17:00] VITALS: BP 196/72; PULSE 77; RESP 18; TEMP 98.1; O2SAT 94
[2023-03-03 20:00] VITALS: BP 178/69; PULSE 81; RESP 20; TEMP 98; O2SAT 91; O2SAT 95
[2023-03-04] MEDS: HYDROcodone-ACET 5/325MG TAB PO PRN ×3 (00:12→12:50)
[2023-03-04] MEDS: ONDANSETRON HCL 4 MG/2 ML VIAL IV PRN ×2 (04:45→11:54)
[2023-03-04 05:07] VITALS: BP 141/67; PULSE 80; RESP 16; TEMP 97.7; O2SAT 93
[2023-03-04] MEDS: BUMETANIDE 2.5mg/10ml (0.25 mg/ml) INJ IV SCH (06:22)
[2023-03-04] MEDS: LEVOTHYROXINE SODIUM 25 MCG TAB PO SCH (06:34)
[2023-03-04] MEDS: InsuLIN REG 1unit/0.01ml Soln (100units/ml) SC SCH ×2 (06:38→11:55)
[2023-03-04] MEDS: ACCU-CHEK COMFORT CURVE STRIP VI SCH ×2 (06:38→11:54)
[2023-03-04] MEDS ORDERED: SODIUM CHL 0.9% 1000 ML BAG XX ONE (07:00)
[2023-03-04 08:00] VITALS: PULSE 79; RESP 16; O2SAT 95
[2023-03-04 09:00] VITALS: BP 162/68; PULSE 79; RESP 16; TEMP 98; O2SAT 95
[2023-03-04] MEDS: CARVEDILOL 12.5 MG TAB PO SCH (09:17)
[2023-03-04] MEDS: NIFEdipine ER 30 MG TAB PO SCH (09:17)
[2023-03-04] MEDS: SODIUM CHLOR 0.9% PF (SALINE LOCK) 10ML VIAL/SYR IV SCH (09:18)
[2023-03-04] MEDS: cefTRIAXone 1GM/50ML D5W 50 ML IV SCH (09:18)
[2023-03-04] MEDS ORDERED: BUM1T PO (11:30)
[2023-03-04 12:55] VITALS: BP 134/58; PULSE 69; RESP 16; TEMP 98.1; O2SAT 99
[2023-03-04 16:50] VITALS: BP 145/62; PULSE 72; RESP 17; TEMP 98; O2SAT 92
== END 2023-03-04 18:33 | disposition left against medical advice (07) | DRG 871 ==
LOC: EDBD 11:23 → ER 11:23 → TELE 14:33 → ICU WEST 16:46 → TELE-CENTR 02-28 15:55 → CENTRAL 03-02 18:02
PROVIDERS: ADMIT Nurse Practitioner Acute Care; ATTEND Nurse Practitioner Acute Care
PROC: 5A1945Z Respiratory Ventilation, 24-96 Consecutive Hours (ICD-10-PCS; principal; 2023-02-21)
PROC: 0BH17EZ Insertion of Endotracheal Airway into Trachea, Via Natural or Artificial Opening (ICD-10-PCS; 2023-02-21)
PROC: 02HV33Z Insertion of Infusion Device into Superior Vena Cava, Percutaneous Approach (ICD-10-PCS; 2023-02-22)
PROC: B548ZZA Ultrasonography of Superior Vena Cava, Guidance (ICD-10-PCS; 2023-02-22)
PROC: 5A09357 Assistance with Respiratory Ventilation, Less than 24 Consecutive Hours, Continuous Positive Airway Pressure (ICD-10-PCS; 2023-02-24)
PROC: 0D9670Z Drainage of Stomach with Drainage Device, Via Natural or Artificial Opening (ICD-10-PCS; 2023-02-25)
PROC: 5A1D70Z Performance of Urinary Filtration, Intermittent, Less than 6 Hours Per Day (ICD-10-PCS; 2023-02-27)
PROC: 0JH63XZ Insertion of Tunneled Vascular Access Device into Chest Subcutaneous Tissue and Fascia, Percutaneous Approach (ICD-10-PCS; 2023-02-28)
PROC: B5181ZA Fluoroscopy of Superior Vena Cava using Low Osmolar Contrast, Guidance (ICD-10-PCS; 2023-02-28)
PROC: B548ZZA Ultrasonography of Superior Vena Cava, Guidance (ICD-10-PCS; 2023-02-28)
PROC: 02H633Z Insertion of Infusion Device into Right Atrium, Percutaneous Approach (ICD-10-PCS; 2023-02-28)
PROC: 5A1D70Z Performance of Urinary Filtration, Intermittent, Less than 6 Hours Per Day (ICD-10-PCS; 2023-02-28)
PROC: 5A1D70Z Performance of Urinary Filtration, Intermittent, Less than 6 Hours Per Day (ICD-10-PCS; 2023-03-02)
PROC: 5A1D70Z Performance of Urinary Filtration, Intermittent, Less than 6 Hours Per Day (ICD-10-PCS; 2023-03-04)
DX: A41.51 Sepsis due to Escherichia coli [E. coli] (principal); G93.41 Metabolic encephalopathy; J96.00 Acute respiratory failure, unspecified whether with hypoxia or hypercapnia; J18.9 Pneumonia, unspecified organism; E87.20 Acidosis, unspecified; G93.1 Anoxic brain damage, not elsewhere classified; I12.0 Hypertensive chronic kidney disease with stage 5 chronic kidney disease or end stage renal disease; E44.0 Moderate protein-calorie malnutrition; Z68.41 Body mass index [BMI] 40.0-44.9, adult; I16.9 Hypertensive crisis, unspecified; N17.9 Acute kidney failure, unspecified; D63.1 Anemia in chronic kidney disease; E66.01 Morbid (severe) obesity due to excess calories; E87.5 Hyperkalemia; R56.9 Unspecified convulsions; N30.90 Cystitis, unspecified without hematuria; E03.9 Hypothyroidism, unspecified; E11.22 Type 2 diabetes mellitus with diabetic chronic kidney disease; E78.5 Hyperlipidemia, unspecified; E87.70 Fluid overload, unspecified; K44.9 Diaphragmatic hernia without obstruction or gangrene; Z53.21 Procedure and treatment not carried out due to patient leaving prior to being seen by health care provider; Z90.710 Acquired absence of both cervix and uterus; Z99.2 Dependence on renal dialysis; Z95.5 Presence of coronary angioplasty implant and graft; Z83.3 Family history of diabetes mellitus; I25.10 Atherosclerotic heart disease of native coronary artery without angina pectoris; K21.9 Gastro-esophageal reflux disease without esophagitis; B96.1 Klebsiella pneumoniae [K. pneumoniae] as the cause of diseases classified elsewhere
CPT/HCPCS: 31500; 36415; 36558; 36569; 36600; 70450; 71045; 74018; 74176; 74250; 76775; 77001; 80048; 80053; 80061; 80074; 80307; 80320; 80329; 81001; 82140; 82306; 82570; 82607; 82728; 82805; 82962; 83036; 83540; 83550; 83690; 83735; 83880; 83970; 84100; 84156; 84300; 84443; 84484; 85025; 85379; 85610; 85730; 86141; 87040; 87070; 87077; 87081; 87086; 87088; 87186; 87205; 87340; 87426; 87804; 90935; 93005; 93017; 94002; 94003; 94640; 96365; 96368; 96375; 97110; 97116; 97163; 97530; 99152; 99291; C1894; G0378; J0690; J0696; J1100; J1642; J1815; J2250; J2405; J2543; J2704; J3480; J7060

== ENCOUNTER 2023-11-15 14:27 | Inpatient (IN) | payer MEDICARE, MEDICAID ==
[~2023-11-15] VITALS: Ht 157.5 cm; Wt 115.0 kg
[~2023-11-15 14:27] MED LIST: ATOR20TA PO; BUM1T PO; CAR125T PO; CLOP75TA28 PO; CYCL-839 PO; FERR325T24 PO; GABA-1250 PO; HYDR-4072 PO; LEVO88TA4 PO; LISI20TA56 PO; NIFE1TAB30 PO; PANT40TA2 PO; QUET300T24 PO
[2023-11-15] MEDS: HYDROcodone-ACET 5/325MG TAB PO ONE (15:30)
[2023-11-15 15:42] VITALS: PULSE 65; RESP 21; O2SAT 99
[2023-11-15 16:00] LABS: Basophils # (auto) 0 10 ^3/uL (0-0.2); Basophils % (auto) 0.4 % (0.0-2.0); Eosinophils # (auto) 0.7 10 ^3/uL (0-0.8); Eosinophils % (auto) 5.8 % (0.0-7.0); Hematocrit 28.7 % (36.0-46.0); Hemoglobin 9.6 g/dL (12.2-16.2); Lymphocytes # (auto) 2.1 10 ^3/uL (0.4-5.4); Lymphocytes % (auto) 18.4 % (10.0-50.0); Mean Corpuscular Hgb Conc. 33.4 g/dL (32.0-36.0); Mean Corpuscular Volume 92.6 fL (80.0-100.0); Monocytes # (auto) 1.2 10 ^3/uL (0-1.3); Monocytes % (auto) 10.5 % (0.0-12.0); Neutrophils # (auto) 7.3 10 ^3/uL (1.6-8.6); Neutrophils % (auto) 64.9 % (37.0-80.0); Red Cell Distribution Width 15.2 % (11.8-14.3); White Blood Cell 11.3 10^3/uL (4.4-10.8)
[2023-11-15] MEDS: methylPREDNISolone SOD SUCC 125 MG/2 ML VL IV ONE (16:05)
[2023-11-15] MEDS: IPRATROPIUM BROM 0.5 MG/2.5ML INH SOL NEB ONE (16:18)
[2023-11-15] MEDS: ALBUTEROL SULF 2.5 MG/0.5ML(0.5%) NEB SOLN NEB ONE (16:18)
[2023-11-15 16:23] LABS: Alanine Aminotransferase 13 U/L (7-40); Albumin 3.6 g/dL (3.2-4.8); Alkaline Phosphatase 124 U/L (46-116); Anion Gap 9 (5-15); Aspartate Aminotransferase 12 U/L (13-40); BUN/Creatinine Ratio 8.1 (10.0-20.0); Blood Urea Nitrogen 39 mg/dL (9-23); Calcium 8.3 mg/dL (8.7-10.4); Carbon Dioxide 25 mmol/L (20-30); Chloride 109 mmol/L (98-107); Glucose 96 mg/dL (74-106); Sodium 143 mmol/L (136-145)
[2023-11-15 16:24] LABS: Bilirubin, Total 0.2 mg/dL (0.2-1.0)
[2023-11-15 16:49] LABS: Urine Bacteria FEW /hpf (None Seen); Urine Blood TRACE /uL (Negative); Urine Clarity Turbid (Clear); Urine Mucus FEW (None Seen); Urine Protein, UAD 2+ (Negative); Urine Specific Gravity 1.015 (1.001-1.035); Urine Urobilinogen Normal (Negative); Urine WBC 94 /hpf (0 - 5); Urine pH 6.5 (5.0-9.0)
[2023-11-15 16:50] LABS: Urine Color Yellow (Yellow)
[2023-11-15] MEDS: MORPHINE SULFATE 4 MG/ML SYR/VIAL IV ONE (16:54)
[2023-11-15 19:18] LABS: COVID19 ANTIGEN SOFIA FIA NEGATIVE (NEGATIVE)
[2023-11-15 19:19] LABS: Rapid Influenza A Negative (Negative); Rapid Influenza B Negative (Negative)
[2023-11-15 20:00] VITALS: PULSE 74; RESP 19; O2SAT 96
[2023-11-15] MEDS ORDERED: DEXTROSE (50%) 50ML SYRG IV PRN (22:15)
[2023-11-15] MEDS: FUROSEMIDE 40 MG/4 ML VIAL IV ONE (22:15)
[2023-11-15] MEDS ORDERED: NITROGLYCERIN 0.4 MG SL TAB SL PRN (22:15)
[2023-11-15] MEDS ORDERED: ACETAMINOPHEN 325 MG TAB PO PRN (22:15)
[2023-11-15 22:32] VITALS: BP 161/60; PULSE 74; RESP 19; O2SAT 97
[2023-11-15] MEDS: MORPHINE SULFATE INJ 2 MG/ml SYRG IV PRN (23:07)
[2023-11-16] VITALS (13 sets, daily range): BP systolic 125–168; BP diastolic 60–73; PULSE 65–84; RESP 14–24; TEMP 98.1–98.6; O2SAT 93–99
[2023-11-16] MEDS: ACCU-CHEK COMFORT CURVE STRIP VI SCH
[2023-11-16] MEDS: InsuLIN REG 1unit/0.01ml Soln (100units/ml) SC SCH
[2023-11-16] MEDS ORDERED: ACETAMINOPHEN 325 MG TAB PO PRN (03:00)
[2023-11-16] MEDS: cloNIDine HCL 0.1 MG TAB PO ONE (03:10)
[2023-11-16] MEDS: IPRATROPIUM BROM 0.5 MG/2.5ML INH SOL NEB PRN (04:37)
[2023-11-16] MEDS: ALBUTEROL SULF 2.5 MG/0.5ML(0.5%) NEB SOLN NEB PRN (04:37)
[2023-11-16] MEDS: LEVOTHYROXINE SODIUM 25 MCG TAB PO SCH (05:53)
[2023-11-16] MEDS: FUROSEMIDE 40 MG/4 ML VIAL IV SCH (05:59)
[2023-11-16 07:09] LABS: Basophils # (auto) 0 10 ^3/uL (0-0.2); Basophils % (auto) 0.2 % (0.0-2.0); Eosinophils # (auto) 0 10 ^3/uL (0-0.8); Hematocrit 29.3 % (36.0-46.0); Hemoglobin 9.9 g/dL (12.2-16.2); Lymphocytes # (auto) 1.2 10 ^3/uL (0.4-5.4); Lymphocytes % (auto) 10.6 % (10.0-50.0); Mean Corpuscular Hemoglobin 31.3 pg (28.0-32.0); Mean Corpuscular Hgb Conc. 33.8 g/dL (32.0-36.0); Mean Corpuscular Volume 92.5 fL (80.0-100.0); Monocytes # (auto) 0.4 10 ^3/uL (0-1.3); Neutrophils # (auto) 9.4 10 ^3/uL (1.6-8.6); Neutrophils % (auto) 85.2 % (37.0-80.0); Red Blood Cells 3.17 10^6/uL (4.0-5.20); White Blood Cell 11.1 10^3/uL (4.4-10.8)
[2023-11-16 07:28] LABS: Calcium 8.7 mg/dL (8.7-10.4); Chloride 103 mmol/L (98-107); Potassium 4.9 mmol/L (3.5-5.1); Sodium 136 mmol/L (136-145)
[2023-11-16 07:29] LABS: Anion Gap 10 (5-15); Carbon Dioxide 23 mmol/L (20-30)
[2023-11-16 07:34] LABS: BUN/Creatinine Ratio 7.9 (10.0-20.0); Blood Urea Nitrogen 41 mg/dL (9-23); Glucose 356 mg/dL (74-106)
[2023-11-16] MEDS: AZITHROMYCIN 500MG/ 250ML 250 ML IV SCH (09:20)
[2023-11-16] MEDS: amLODIPine BESYLATE 5 MG TAB PO SCH (09:54)
[2023-11-16] MEDS: CARVEDILOL 12.5 MG TAB PO SCH (09:55)
[2023-11-16] MEDS: CLOPIDOGREL BISULFATE 75 MG TAB PO SCH (09:55)
[2023-11-16] MEDS: NIFEdipine ER 30 MG TAB PO SCH (09:56)
[2023-11-16] MEDS ORDERED: SODIUM CHL 0.9% 1000 ML BAG XX ONE (12:00)
[2023-11-16] MEDS: HYDROcodone-ACET 5/325MG TAB PO PRN (13:57)
[2023-11-16] MEDS: guaiFENesin-DM 100/10mg/5ml SYR PO PRN (13:57)
[2023-11-16] MEDS: EPOETIN ALFA-EPBX 4,000 UNIT/ML VIAL SC ONE (21:19)
[2023-11-16] MEDS: ATORVASTATIN 20 MG TAB PO SCH (21:20)
[2023-11-17] VITALS (9 sets, daily range): BP systolic 130–165; BP diastolic 49–86; PULSE 59–88; RESP 16–20; TEMP 97.8–98.2; O2SAT 90–99
[2023-11-17] MEDS: ONDANSETRON HCL 4 MG/2 ML VIAL IV PRN (06:22)
[2023-11-17] MEDS ORDERED: SODIUM CHL 0.9% 1000 ML BAG XX ONE (07:00)
[2023-11-17 09:06] LABS: Hepatitis B Surface Antigen Negative (Negative)
[2023-11-17 09:28] LABS: Hepatitis B Core IgM Negative
[2023-11-17 09:29] LABS: Hepatitis A Ab IgM Negative; Hepatitis C Antibody Negative (Negative)
[2023-11-17] MEDS: cefTRIAXone 1GM/50ML D5W 50 ML IV SCH (18:31)
[2023-11-18] VITALS (7 sets, daily range): BP systolic 147–171; BP diastolic 48–74; PULSE 54–72; RESP 16–18; TEMP 97.6–98.6; O2SAT 93–98
[2023-11-18] MEDS ORDERED: LEVO500T91 PO (10:59)
[2023-11-18] MEDS ORDERED: hydrALAZINE HCL 10 MG TAB PO PRN (12:15)
[2023-11-18] MEDS: hydrALAZINE HCL 10 MG TAB PO ONE (12:25)
== END 2023-11-18 16:00 | disposition home or self-care (01) | DRG 640 ==
LOC: ER 14:27 → OVERFLOW 22:21 → WEST WING 11-16 02:06
PROVIDERS: ADMIT Nurse Practitioner; ATTEND Internal Medicine
PROC: 5A1D70Z Performance of Urinary Filtration, Intermittent, Less than 6 Hours Per Day (ICD-10-PCS; principal; 2023-11-16)
DX: E87.70 Fluid overload, unspecified (principal); J96.21 Acute and chronic respiratory failure with hypoxia; N18.6 End stage renal disease; I13.2 Hypertensive heart and chronic kidney disease with heart failure and with stage 5 chronic kidney disease, or end stage renal disease; N39.0 Urinary tract infection, site not specified; J40 Bronchitis, not specified as acute or chronic; Z20.822 Contact with and (suspected) exposure to COVID-19; D63.1 Anemia in chronic kidney disease; E03.9 Hypothyroidism, unspecified; E11.22 Type 2 diabetes mellitus with diabetic chronic kidney disease; E78.5 Hyperlipidemia, unspecified; K21.9 Gastro-esophageal reflux disease without esophagitis; I50.9 Heart failure, unspecified; Z99.2 Dependence on renal dialysis; Z90.49 Acquired absence of other specified parts of digestive tract; Z90.710 Acquired absence of both cervix and uterus; Z83.3 Family history of diabetes mellitus
CPT/HCPCS: 36415; 71045; 80048; 80053; 80074; 81001; 82962; 83605; 83880; 84484; 85025; 87040; 87426; 87804; 90935; 93005; 94640; 96374; 96375; G0378; J1642; J1815; J2405

== ENCOUNTER 2024-10-13 17:48 | Inpatient (IN) | payer MEDICARE, MEDICAID ==
[~2024-10-13] VITALS: Ht 157.5 cm; Wt 118.1 kg
[~2024-10-13 17:48] MED LIST changes: +ATOR20TA50 PO; +B-CO-5 PO; +CALC0.25 PO; +CARV12.544 PO; +CLON0.1T PO; +CLOP75TA70 PO; +DICL1GEL59 TOP; +DOCU-111 PO; +FERR1TAB17 PO; +FURO40TA4 PO; +ICOS1CAP3 PO; +INSU100I61 SC; +INSUINJ37 SC; +LEVO25TA6 PO; +LEVO500T91 PO; +LIDO1PAD55 TOP; +METO5TAB5 PO; +NIFE90TA75 PO; +PANT40T PO; +QUET400T13 PO
[2024-10-13] MEDS: ALBUTEROL SULF 2.5 MG/0.5ML(0.5%) NEB SOLN NEB ONE (18:35)
[2024-10-13] MEDS: IPRATROPIUM BROM 0.5 MG/2.5ML INH SOL NEB ONE (18:35)
[2024-10-13 18:42] LABS: Basophils # (auto) 0.1 10 ^3/uL (0-0.2); Basophils % (auto) 0.9 % (0.0-2.0); Eosinophils # (auto) 0.3 10 ^3/uL (0-0.8); Eosinophils % (auto) 2.4 % (0.0-7.0); Hematocrit 32.2 % (36.0-46.0); Hemoglobin 11.3 g/dL (12.2-16.2); Lymphocytes # (auto) 2.3 10 ^3/uL (0.4-5.4); Lymphocytes % (auto) 18.1 % (10.0-50.0); Mean Corpuscular Hemoglobin 32.2 pg (28.0-32.0); Mean Corpuscular Hgb Conc. 35.1 g/dL (32.0-36.0); Mean Corpuscular Volume 91.6 fL (80.0-100.0); Monocytes # (auto) 0.9 10 ^3/uL (0-1.3); Monocytes % (auto) 6.6 % (0.0-12.0); Neutrophils # (auto) 9.4 10 ^3/uL (1.6-8.6); Nucleated Red Blood Cells % 0.1 %; Platelet Count (auto) 255 10^3/uL (140-450); Red Blood Cells 3.52 10^6/uL (4.0-5.20); Red Cell Distribution Width 14.9 % (11.8-14.3)
--- NOTE | 2024-10-13 18:47 | DVH ---
CHEST RADIOGRAPH Indication: Shortness of breath Technique: Single frontal view of the chest was obtained Comparison: XY CHEST PORTABLE on DOS: 11/15/23, XY CHEST PORTABLE on DOS: 02/27/23, XY CHEST PORTABLE o n DOS: 02/27/23 FINDINGS: Lines and Tubes: None Lungs: No focal consolidation. Pleura: No effusion. No pneumothorax. Cardiomediastinal contours: Unremarkable Bones: No acute osseous abnormality. IMPRESSION: 1. No acute cardiopulmonary disease. HS:Y
[2024-10-13 18:54] LABS: Sodium 143 mmol/L (136-145)
[2024-10-13 18:55] LABS: Anion Gap 11 (5-15)
[2024-10-13 18:56] LABS: Calcium 9.3 mg/dL (8.7-10.4)
[2024-10-13 19:01] LABS: BUN/Creatinine Ratio 5.4 (10.0-20.0)
[2024-10-13 19:04] LABS: Blood Urea Nitrogen 23 mg/dL (9-23); Carbon Dioxide 35 mmol/L (20-31); Chloride 97 mmol/L (98-107); Glucose 164 mg/dL (74-106)
[2024-10-13 19:09] LABS: Potassium 2.5 mmol/L (3.5-5.1)
--- NOTE | 2024-10-13 20:05 | ED.PDOC ---
History of Present Illness HPI Comments 59 y/o F, with a history of COPD and end-stage renal disease on peritoneal dialysis, is BIBA for c/o shortness of breath and left sided chest pain. Patient endorses on sudden and unprovoked onset of symptoms, this morning. Chest pain, initially, originated on the right side of her chest prior to moving to her left side after using a lidocaine patch. She denies having any cough, congestion, fever, chills, or further associated symptoms. Patient was noted to have been found on 93% on RA. Chief Complaint: Shortness of Breath Time Seen by MD: 17:55 Primary Care Provider: HEAD Reviewed Notes: Nurses Notes, Fan Blade Aligner Notes, Medications, Allergies Allergies: Coded Allergies: NO KNOWN ALLERGIES (Unverified , 02/21/23) Home Meds Active Scripts Levofloxacin Hemihydrate (LEVAQUIN 500 MG) 500 Mg Tab, 0.5 TAB PO DAILY, #7 TAB Prov:YADY MOSS MD 11/18/23 Bumetanide (Bumex Tablet) 1 Mg Tab, 1 MG PO BID for 30 Days, #60 TAB BLK BX WARNING-CAN LEAD TO PROFOUND DIURESIS WITH FLUID- ELECTROLYTE LOSS Prov:OMID MISHRA GROCERY DELIVERER 03/04/23 Reported Medications Icosapent Ethyl (Icosapent Ethyl) 1 Gm Cap, 2 CAP PO BIDWM for 30 Days, #10 02/29/24 Diclofenac Sodium (Topical) (Voltaren Arthritis Pain) 1 % Gel, 1 APPLIC TOP Q8HR PRN for PAIN for 30 Days, #100 APPLY TO AFFECTED AREA TOPICALLY EVERY 8 HOURS NEEDED FOR PAIN. 02/29/24 Lidocaine (Lidocaine) 5 % Pad, 1 PATCH TOP DAILY for 30 Days, #30 APPLY 1 PATCH TOPICALLY EVERYDAY 12 HOURS ON & 12 HOURS OFF. 02/29/24 Clonidine Hydrochloride (Clonidine Hcl) 0.1 Mg Tab, 1 TAB PO DAILY for 30 Days, #30 02/29/24 Insulin Aspart (Novolog Flexpen Relion) 100 Unit/Ml Inj, UNIT SC UD for 66 Days, #30 INJECT SUBCUTANEOUSLY DIRECTED PER SLIDING SCALE (MAX 45 UNITS PER DAY). 02/29/24 Pantoprazole Sodium Sesquihydr (Pantoprazole Sodium) 40 Mg Tab, 1 TAB PO DAILY for 90 Days, #90 02/29/24 Insulin Glargine (Lantus Solostar) 100 Unit/Ml Inj, 30 UNIT SC ACHS 02/28/24 Nifedipine (Nifedipine Er) 90 Mg Tab, 90 MG PO DAILY 02/28/24 Furosemide (Furosemide) 40 Mg Tab, 80 MG PO BIDD 02/28/24 Carvedilol (Carvedilol) 12.5 Mg Tab, 1 TAB PO BID for 30 Days, #60 02/28/24 Levothyroxine Sodium (Levothyroxine Sodium) 25 Mcg Tab, 75 MCG PO QAM, % 02/28/24 Hydrocodone-Acetaminophen (Hydrocodone/Acetaminophen 10-325 mg) 1 Tab Tab, 1 TAB PO Q8HR PRN for SEVERE PAIN for 30 Days, #75 02/28/24 Quetiapine Fumerate (QUETIAPINE FUMARATE) 400 Mg Tab, 400 MG PO at bedtime, MG 02/28/24 B-Complex W/ C & Folic Acid (Shelley-Omid) Tab, 1 TAB PO DAILY for 30 Days, #30 02/28/24 Lisinopril (Lisinopril) 20 Mg Tab, 20 MG PO DAILY, MG 02/28/24 Ferric Citrate (Auryxia) 210 Mg Tab, 2 TAB PO BIDWM for 90 Days, #120 02/28/24 Clopidogrel Bisulfate (CLOPIDOGREL) 75 Mg Tab, 75 MG PO DAILY, MG 02/28/24 Atorvastatin Calcium (ATORVASTATIN CALCIUM) 20 Mg Tab, 20 MG PO DAILY, TAB 02/28/24 Calcitriol (Calcitriol) 0.25 Mcg Cap, 0.25 MCG PO DAILY, MCG 02/28/24 Metolazone (Metolazone) 5 Mg Tab, 1 TAB PO MWF for 30 Days, #15 TAKE 1 TABLET BY MOUTH 3 TIMES A WEEK ON TUESDAY, TUESDAY, AND TUESDAY. 02/28/24 Docusate Sodium (Sb Docusate Sodium) 100 Mg Cap, 100 MG PO BID, CAP 02/28/24 Nifedipine (Nifedipine Er) 60 Mg Tab, 1 TAB PO DAILY, #30 TAB 5 Refills 02/21/23 Atorvastatin Calcium (Lipitor) 20 Mg Tab, 1 TAB PO DAILY, #90 TAB 1 Refill 02/21/23 Clopidogrel Bisulfate (Plavix) 75 Mg Tab, 75 MG PO DAILY, TAB 02/21/23 Lisinopril (Lisinopril) 20 Mg Tab, 1 TAB PO DAILY, #30 TAB 5 Refills 02/21/23 Hydrocodone-Acetaminophen (Hydrocodone/Acetaminophen 10-325 mg) 1 Tab Tab, 1 TAB PO TID, TAB 02/21/23 Cyclobenzaprine Hcl (Cyclobenzaprine Hcl) 10 Mg Tab, 53 MG PO HS PRN for AGITATION for 30 Days, MG 02/21/23 Ferrous Sulfate (Ferrous Sulfate) 325 Mg Tab, 325 MG PO DAILY for 30 Days, MG 02/21/23 Quetiapine Fumerate (QUETIAPINE FUMARATE) 300 Mg Tab, 300 MG PO for 30 Days, MG 02/21/23 Gabapentin (Gabapentin) 300 Mg Cap, 1 CAP PO TID, #90 CAP 5 Refills 02/21/23 Levothyroxine Sodium (Levothyroxine Sodium) 88 Mcg Tab, 75 MCG PO QAM for 30 Day s, MCG 02/21/23 Carvedilol (Coreg) 12.5 Mg Tab, 1 TAB PO BID, #180 TAB 1 Refill 02/21/23 Pantoprazole Sodium Sesquihydr (Protonix) 40 Mg Tab, 40 MG PO DAILY, #30 TAB 02/21/23 Information Source: Patient, Emergency Med Personnel Mode of Arrival: EMS Severity: Moderate Timing: Hours Duration: Since onset Prehospital treatment: None Past Medical History PAST MEDICAL HISTORY: COPD, DM, ESRD, GERD, High Lipids, HTN, Thyroid Past Medical History (Other): On peritoneal dialysis Surgical History: Cholecystectomy, , Hysterectomy, Tonsillectomy BEAUTY CULTURIST History: No Pertinent BEAUTY CULTURIST History Family History Family History: Reviewed,noncontributory to illness Social History Smoker: Non-Smoker Alcohol: Denies ETOH Use Drugs: Denies Drug Use Lives In: Home Constitutional: denies: chills, diaphoresis, fatigue, fever, malaise, sweats, weakness, others EENTM: denies: blurred vision, double vision, ear bleeding, ear discharge, ear drainage, ear pain, ear ringing, eye pain, eye redness, hearing loss, mouth pain, mouth swelling, nasal discharge, nose bleeding, nose congestion, nose p ain, photophobia, tearing, throat pain, throat swelling, voice changes, others Respiratory: reports: shortness of breath; denies: cough, hemoptysis, orthopnea, SOB at rest, SOB with excertion, stridor, wheezing, others Cardiovascular: reports: chest pain; denies: dizzy spells, diaphoresis, Dyspnea on exertion, edema, irregular heart beat, left arm pain, lightheadedness, palpitations, PND, syncope, others Gastrointestinal: denies: abdomen distended, abdominal pain, blood streaked bowels, constipated, diarrhea, dysphagia, difficulty swallowing, hematemesis, melena, nausea, poor appetite, poor fluid intake, rectal bleeding, rectal pain, vomiting, others Genitourinary: denies: abnormal vagina bleeding, burning, dyspareunia, dysuria, flank pain, frequency, hematuria, incontinence, pain, , vagina discharge, urgency, others Neurological: denies: dizziness, fainting, headache, left sided numbness, left sided weakness, numbness, paresthesia, pre-existing deficit, right sided numbness, right sided weakness, seizure, speech problems, tingling, tremors, weakness, others Musculoskeletal: denies: back pain, gout, joint pain, joint swelling, muscle pain, muscle stiffness, neck pain, others Integumetry: denies: bruises, change in color, change in hair/nails, dryness, laceration, lesions, lumps, rash, wounds, others Allergic/Immunocompromised: denies: Difficulty Healing, Frequent Infections, Hives, Itching, others Hematologic/Lymphatic: denies: anemia, blood clots, easy bleeding, easy bruising, swollen glands, others Endocrine: denies: excessive hunger, excessive sweating, excessive thirst, excessive urination, flushing, intolerance to cold, intolerance to heat, unexplained weight gain, unexplained weight loss, others Psychiatric: denies: anxiety, bipolar disorder, depression, hopeless, panic disorder, schizophrenia, sleepless, suicidal, others All Other Systems: Reviewed and Negative (As per HPI) Physical Exam General Appearance: Moderate Distress (Tsha-hq-pqriqkey distress due to shortness a breath and chest pain concerns.), Obese HEENT: Normal ENT Inspection, Pharynx Normal, TMs Normal Neck: Full Range of Motion, Non-Tender, Normal, Normal Inspection Respiratory: Other (Patchy rhonchi appreciated in bilateral lung swenson. Mild wheezing and right middle lobe.) Cardiovascular: No Edema, No JVD, No Murmur, No Gallop, Normal Peripheral Pulses, Regular Rate/Rhythm Breast Exam: Deferred Gastrointestinal: No Organomegaly, Non Tender, No Pulsatile Mass, Normal Bowel Sounds, Soft Genitalia: Deferred Pelvic: Deferred Rectal: Deferred Extremities: No calf tenderness, Normal capillary refill, Non-tender Neurologic: Alert, No Motor Deficits, Normal Affect, Normal Mood, No Sensory Deficits Cerebellar Function: NOT DONE Reflexes: NOT DONE Skin: Dry, Normal Color, Warm Lymphatic: No Adenopathy Was a procedure done? Was a procedure done?: No Differential Dx Considerations may include: acute COPD exacerbation, DE, PE, ACS, URI, CHF, electrolyte abnormality, viral syndrome, among others X-Ray, Labs, Meds, VS Vital Signs Date Time Temp Pulse Resp B/P (MAP) Pulse Ox O2 Delivery O2 Flow Rate FiO2 10/13/24 18:35 20 91 Room Air* 0 10/13/24 17:57 18 93 Room Air* 0 10/13/24 17:53 98.9 74 18 147/59 (88) 93 98.9 10/13/24 17:53 68 Lab Test 10/13/24 19:42 10/13/24 18:37 Range/Units Troponin I High Sensitivity 13 15 </=34 ng/L White Blood Count 13.0 H 4.4-10.8 10^3/uL Red Blood Count 3.52 L 4.0-5.20 10^6/uL Hemoglobin 11.3 L 12.2-16.2 g/dL Hematocrit 32.2 L 36.0-46.0 % Mean Corpuscular Volume 91.6 80.0-100.0 fL Mean Corpuscular Hemoglobin 32.2 H 28.0-32.0 pg Mean Corpuscular Hemoglobin Concent 35.1 32.0-36.0 g/dL Red Cell Distribution Width 14.9 H 11.8-14.3 % Platelet Count 255 140-450 10^3/uL Mean Platelet Volume 7.9 6.9-10.8 fL Neutrophils (%) (Auto) 72.0 37.0-80.0 % Lymphocytes (%) (Auto) 18.1 10.0-50.0 % Monocytes (%) (Auto) 6.6 0.0-12.0 % Eosinophils (%) (Auto) 2.4 0.0-7.0 % Basophils (%) (Auto) 0.9 0.0-2.0 % Neutrophils # (Auto) 9.4 H 1.6-8.6 10 ^3/uL Lymphocytes # (Auto) 2.3 0.4-5.4 10 ^3/uL Monocytes # (Auto) 0.9 0-1.3 10 ^3/uL Eosinophils # (Auto) 0.3 0-0.8 10 ^3/uL Basophils # (Auto) 0.1 0-0.2 10 ^3/uL Nucleated Red Blood Cells 0.1 % Sodium Level 143 136-145 mmol/L Potassium Level 2.5 *L 3.5-5.1 mmol/L Chloride Level 97 L 98-107 mmol/L Carbon Dioxide Level 35 H 20-31 mmol/L Anion Gap 11 5-15 Blood Urea Nitrogen 23 9-23 mg/dL Creatinine 4.26 H 0.550-1.02 mg/dL Glomerular Filtration Rate Calc 11 >90 mL/min BUN/Creatinine Ratio 5.4 L 10.0-20.0 Serum Glucose 164 H 74-106 mg/dL Calcium Level 9.3 8.7-10.4 mg/dL B-Type Natriuretic Peptide 292.99 0-100 pg/mL Current Medications Medications (Trade) Dose Ordered Sig/Gregory Route Start Time Stop Time Status Last Admin Albuterol (Ventolin Medneb) 5 mg ONCE ONCE NEB 10/13/24 18:15 10/13/24 18:16 DC 10/13/24 18:35 Ipratropium Alcolu (Atrovent Medneb) 0.5 mg ONCE ONCE NEB 10/13/24 18:15 10/13/24 18:16 DC 10/13/24 18:35 [place] [address] Ph: [phone] DIAGNOSTIC IMAGING Diagnostic Imaging Report : [id number] Signed PATIENT: CLAUDIA MONTALVO ACCT: [id number] UNIT: [id number] : 1965 LOC: ER ROOM / BED: / AGE / SEX: 59 / F ADM STATUS: REG ER SERVICE 13 ORDERING PHYSICIAN: TYLER HUBER PAC PROCEDURE(s): CXRP - CHEST PORTABLE REASON: Shortness of breath ORDER NUMBER(s): [id number], ACCESSION NUMBER(s): [id number] CHEST RADIOGRAPH Indication: Shortness of breath Technique: Single frontal view of the chest was obtained Comparison: XY CHEST PORTABLE on DOS: 11/15/23, XY CHEST PORTABLE on DOS: 02/27/23, XY CHEST PORTABLE on DOS: 02/27/23 FINDINGS: Lines and Tubes: None Lungs: No focal consolidation. Pleura: No effusion. No pneumothorax. Cardiomediastinal contours: Unremarkable Bones: No acute osseous abnormality. IMPRESSION: 1. No acute cardiopulmonary disease. HS:Y ATED BY: PASQUALE RUSS Jr., DO DICTATED DATE/TIME: 10/13/241844 SIGNED BY: PASQUALE RUSS Jr., SIGNED DATE/TIME: 10/13/241844 CC: X-Ray, Labs, Meds, VS Comment All studies performed the ED were evaluated by me personally. Urine was pending at time of this note. Patient's laboratories revealed a mild leukocytosis as well as a mild anemia. EKG revealed a sinus rhythm with a rate of 68. Low voltage in precordial leads as well as prolonged QT interval and baseline wander in leads two, three, AVR. DC interval 175 and QT interval of 546. Patient had a concerning hypokalemic state and additional findings of elevated BNP are concerning for a new CHF diagnosis. Patient will be admitted for cardiac evaluation with respect to her CHF concerns. Patient will require peritoneal dialysis while at the facility. Time of 1ST Reevaluation: 21:01 Reevaluation 1ST: Improved Consultation: PCP, Cardiology Patient Education/Counseling: Diagnosis, Treatment Family Education/Counseling: Diagnosis, Treatment, No Family Present SEPSIS Sepsis Screen Date sepsis recognized/suspect: Oct 13, 2024 Time Sepsis recognized/suspect: 1749 Recent Procedure: No On Antibiotic Therapy: No Respiratory Rate >20: No Heart Rate >90: No Temp<36 C (96.8 F) or >38.3 C: No SBP <90 or MAP <65 mmHG: No New Acute Mental Status Change: No Is the patient on CPAP, BIPAP,: No Physician Orders Electrocardigram (10/13/24 17:58) Chest Portable (10/13/24 18:14) Heplock Iv (10/13/24 ) Potassium Chl 20meq/100ml (10/13/24 21:00) Continuous Ekg Monitoring 08,12,16,20,00,04 (10/13/24 20:55) Vital Signs Date Time Temp Pulse Resp B/P (MAP) Pulse Ox O2 Delivery O2 Flow Rate FiO2 10/13/24 18:35 20 91 Room Air* 0 21 10/13/24 17:57 18 93 Room Air* 0 21 10/13/24 17:53 98.9 74 18 147/59 (88) 93 98.9 10/13/24 17:53 68 Laboratory Tests Test 10/13/24 18:37 White Blood Count 13.0 10^3/uL (4.4-10.8) H Medications Medications Dose Ordered Sig/Gregory Route Start Time Stop Time Status Last Admin Dose Admin Albuterol 5 mg ONCE ONCE NEB 10/13/24 18:15 10/13/24 18:16 DC 10/13/24 18:35 Ipratropium Alcolu 0.5 mg ONCE ONCE NEB 10/13/24 18:15 10/13/24 18:16 DC 10/13/24 18:35 Departure 1 Departure Time of Disposition: 21:03 Impression: Primary Impression: Acute exacerbation of CHF (congestive heart failure) Additional Impressions: Hypokalemia Anemia Leukocytosis End-stage renal disease on peritoneal dialysis Disposition: ADMITTED INPATIENT Condition: Stable Discharged With: Self Critical Care Note Critical Care Time?: No Stability Stability form required: No Heart Score Heart Score: Heart Score Response (Comments) Value History Slightly Suspicious 0 EKG Repolarization Disturb 1 Age 45-64 1 Risk Factors 1 or 2 risk factors 1 Troponin Normal limit 0 Total 3 I personally scribed for TYLER HUBER PAC ([email or web address]) on 10/13/24 at 20:05. Electronically submitted by Paul Rayo [email or web address]). TYLER HUBER PAC Oct 13, 2024 20:05
--- NOTE | 2024-10-13 22:28 | ECG ---
[facility] Test Date: 2024-10-13 Test Time: 17:53:19 Pat Name: CLAUDIA MONTALVO Department: ED Room: 0204T Gender: F Tugboat Pilot: MIKE : 1965 Requested By: CHIQUIS DEJESUS Order Number: [id number] Reading MD: Franck Bledsoe Measurements Intervals [place] Rate: 68 P: 37 [place]: 175 QRS: 4 QRSD: 97 T: 34 QT: 546 QTc: 581 Interpretive Statements Sinus rhythm Low voltage, precordial leads Prolonged QT interval Baseline wander in lead(s) II,III,aVR,aVL,aVF,V3,V6 Electronically Signed On 10-16-2024 22:43:53 PDT by Franck Bledsoe Please click the below link to view image of tracing.
[2024-10-14] VITALS: PULSE 71; RESP 19; O2SAT 95
[2024-10-14] MEDS: POTASSIUM EFFERVESENT TAB 25 MEQ PO ONE (00:04)
[2024-10-14] MEDS: DexAMETHasone SOD PHOS 10MG/1ML VIAL INJ IM ONE (00:09)
[2024-10-14] MEDS: POTASSIUM CHL 20MEQ/100ML 100 ML IV SCH (00:09)
[2024-10-14] MEDS: FUROSEMIDE 40 MG/4 ML VIAL IV ONE (00:09)
--- NOTE | 2024-10-14 00:28 | DVHHP2 ---
History of Present Illness Reason for Visit: Acute respiratory distress History of Present Illness The patient is a 59-year-old female with multiple past medical history including end-stage renal disease on hemodialysis, thyroid disease, DM, and hypertension who presented to [facility] ED with complaint of shortness of breaths. Patient reports sudden chest pain, initially, originated on the right side of her chest prior to moving to her left side after using a lidocaine patch. Patient was seen and evaluated in the ED, laboratory data shows WBC 13.0, hemoglobin 11.3, hematocrit 32.2, platelets 255, sodium 145, potassium 2.5, BUN 23, creatinine 4.26, glucose 164, BNP 292.99, troponin 15, blood pressure 164/59, heart rate 74, temperature 98.9 F, O2 saturation 91% on oxygen. Chest x-ray show no acute cardiopulmonary disease. Please see medication orders section in the computer. On my assessment, patient denies chest pain at this moment, no headache, no dizziness, currently on oxygen, no nausea, no vomiting, no fever, no chills. Patient was admitted for further evaluation and medical management. Past Medical History COPD, DM, ESRD, GERD, High Lipids, HTN, Thyroid Past Surgical History Peritoneal dialysis, Cholecystectomy, , Hysterectomy, Tonsillectomy Family History Reviewed, noncontributory to the management of this case. Past Social History The patient lives at home, denies smoking, alcohol or illicit drugs abuse. Review of Systems Constitutional: Yes: Weakness; No: Fever, Chills, Sweats, Malaise, Other Eyes: No: Pain, Vision change, Conjunctivae inflammation, Eyelid inflammation, Other, Redness ENT: No: Ear pain, Ear discharge, Nose pain, Nose discharge, Nose congestion, Mouth pain, Mouth swelling, Throat pain, Throat swelling, Other Respiratory: Shortness of breath; No: Cough, Dry, SOB with excertion, Wheezing, Hemoptysis, Pleuritic Pain, Sputum, Wheezing, Other Cardiovascular: Chest Pain; No: Palpitations, Orthopnea, Paroxysmal Noc. Dyspnea, Edema, Lt Headedness, Other Gastrointestinal: No: Nausea, Vomiting, Abdominal Pain, Diarrhea, Constipation, Melena, Hematochezia, Other Genitourinary: No Dysuria, No Frequency, No Incontinence, No Hematuria, No Retention, No Other Musculoskeletal: No: other, neck pain, shoulder pain, arm pain, back pain, hand pain, leg pain, foot pain Skin: No: Rash, Lesions, Jaundice, Bruising, Other Neurological: No: Weakness, Numbness, Incoordination, Change in speech, Confusion, Seizures, Other Allergies: Coded Allergies: NO KNOWN ALLERGIES (Unverified , 02/21/23) Medications Current Medications Medications Dose Ordered Sig/Gregory Route Start Time Stop Time Status Last Admin Dose Admin Potassium Chloride 100 ml @ 50 mls/hr Q2H IV 10/13/24 21:00 10/14/24 00:59 10/14/24 00:09 50 MLS/HR Exam Vital Signs Vital Signs Date Time Temp Pulse Resp B/P (MAP) Pulse Ox O2 Delivery O2 Flow Rate FiO2 10/14/24 00:09 174/69 10/13/24 18:35 20 91 Room Air* 0 21 10/13/24 17:53 98.9 74 98.9 General Appearance: Alert, Oriented X3, Cooperative, No acute distress HEENT: Atraumatic, PERRLA, EOMI, Mucous membr. moist/pink Respiratory: Normal air movement Cardiovascular: Regular rate, Normal S1, Normal S2, No murmurs Abdominal: Normal bowel sounds, Soft, No tenderness, No hepatospenomegaly, No masses Extremities: No clubbing, No cyanosis, No edema, Normal pulses, No tenderness/swelling Skin: No rashes, No breakdown, No significant lesion Neuro: Normal speech, Normal tone, Sensation intact, Cranial nerves 3-12 NL, Reflexes 2+, Other (Generalized weakness) Psych/Mental Status: Mental status NL, Mood NL Labs/Xrays Labs Test 10/13/24 19:42 10/13/24 18:37 Range/Units Troponin I High Sensitivity 13 </=34 ng/L White Blood Count 13.0 H 4.4-10.8 10^3/uL Red Blood Count 3.52 L 4.0-5.20 10^6/uL Hemoglobin 11.3 L 12.2-16.2 g/dL Hematocrit 32.2 L 36.0-46.0 % Mean Corpuscular Volume 91.6 80.0-100.0 fL Mean Corpuscular Hemoglobin 32.2 H 28.0-32.0 pg Mean Corpuscular Hemoglobin Concent 35.1 32.0-36.0 g/dL Red Cell Distribution Width 14.9 H 11.8-14.3 % Platelet Count 255 140-450 10^3/uL Mean Platelet Volume 7.9 6.9-10.8 fL Neutrophils (%) (Auto) 72.0 37.0-80.0 % Lymphocytes (%) (Auto) 18.1 10.0-50.0 % Monocytes (%) (Auto) 6.6 0.0-12.0 % Eosinophils (%) (Auto) 2.4 0.0-7.0 % Basophils (%) (Auto) 0.9 0.0-2.0 % Neutrophils # (Auto) 9.4 H 1.6-8.6 10 ^3/uL Lymphocytes # (Auto) 2.3 0.4-5.4 10 ^3/uL Monocytes # (Auto) 0.9 0-1.3 10 ^3/uL Eosinophils # (Auto) 0.3 0-0.8 10 ^3/uL Basophils # (Auto) 0.1 0-0.2 10 ^3/uL Nucleated Red Blood Cells 0.1 % Sodium Level 143 136-145 mmol/L Potassium Level 2.5 *L 3.5-5.1 mmol/L Chloride Level 97 L 98-107 mmol/L Carbon Dioxide Level 35 H 20-31 mmol/L Anion Gap 11 5-15 Blood Urea Nitrogen 23 9-23 mg/dL Creatinine 4.26 H 0.550-1.02 mg/dL Glomerular Filtration Rate Calc 11 >90 mL/min BUN/Creatinine Ratio 5.4 L 10.0-20.0 Serum Glucose 164 H 74-106 mg/dL Calcium Level 9.3 8.7-10.4 mg/dL B-Type Natriuretic Peptide 292.99 0-100 pg/mL PATIENT: CLAUDIA MONTALVO ACCT: [id number] UNIT: [id number] : 1965 LOC: ER ROOM / BED: / AGE / SEX: 59 / F ADM STATUS: REG ER SERVICE ORDERING PHYSICIAN: TYLER HUBER PAC PROCEDURE(s): CXRP - CHEST PORTABLE REASON: Shortness of breath ORDER NUMBER(s): [id number], ACCESSION NUMBER(s): [id number] CHEST RADIOGRAPH Indication: Shortness of breath Technique: Single frontal view of the chest was obtained Comparison: XY CHEST PORTABLE on DOS: 11/15/23, XY CHEST PORTABLE on DOS: 02/27/23, XY CHEST PORTABLE on DOS: 02/27/23 FINDINGS: Lines and Tubes: None Lungs: No focal consolidation. Pleura: No effusion. No pneumothorax. Cardiomediastinal contours: Unremarkable Bones: No acute osseous abnormality. IMPRESSION: 1. No acute cardiopulmonary disease. Assessment/Plan Assessment/Plan Acute respiratory distress Acute exacerbation of congestive heart failure Hypertension Hypokalemia Leukocytosis, unspecified Generalized weakness End-stage renal disease on peritoneal dialysis Plan 1. Admit to telemetry unit 2. Breathing treatment 3. Pain control management 4. IV antibiotic management 5. Management of fluids and electrolytes 6. Consultation for Nephrology/hospitalist 7. Diagnostic test chest x-ray 8. DVT prophylaxis-on Plavix 9. Repeat labs CBC, CMP in a.m. 10. Home medication reviewed and reconciled 11. Continue with current medical management 12. Treatment plan discussed with patient and RN. Patient verbalized understanding. Plan discussed with: Patient, Other (RN) Problem List: (1) Acute respiratory distress (2) Acute exacerbation of congestive heart failure (3) Hypertension (4) Hypokalemia (5) Leukocytosis, unspecified (6) Generalized weakness (7) End-stage renal disease on peritoneal dialysis Date of Service: Oct 14, 2024 Billing Provider: KAREN TREVIZO DNP Common Visit Codes: [id number] INP/OBS CARE (HIGH) KAREN TREVIZO DNP Oct 14, 2024 00:28
[2024-10-14] MEDS ORDERED: NITROGLYCERIN 0.4 MG SL TAB SL PRN (00:30)
[2024-10-14] MEDS ORDERED: DEXTROSE (50%) 50ML SYRG IV PRN (00:30)
[2024-10-14] MEDS ORDERED: IPRATROPIUM BROM 0.5 MG/2.5ML INH SOL NEB PRN (00:30)
[2024-10-14] MEDS ORDERED: ALBUTEROL SULF 2.5 MG/0.5ML(0.5%) NEB SOLN NEB PRN (00:30)
[2024-10-14] MEDS ORDERED: DOCUSATE SOD 100 MG CAP PO PRN (00:30)
[2024-10-14 00:51] VITALS: BP 174/69; PULSE 74; RESP 20; TEMP 98.9; O2SAT 93
[2024-10-14] MEDS: HYDROcodone-ACET 5/325MG TAB PO PRN (02:37)
[2024-10-14] MEDS: cloNIDine HCL 0.1 MG TAB PO PRN (02:37)
[2024-10-14] MEDS: cefTRIAXone 1GM/50ML D5W 50 ML IV ONE (03:45)
[2024-10-14] MEDS: ACETAMINOPHEN 325 MG TAB PO PRN (05:58)
[2024-10-14] MEDS: LEVOTHYROXINE SODIUM 88 MCG TAB PO SCH (06:52)
[2024-10-14] MEDS: SODIUM CHLOR 0.9% PF (SALINE LOCK) 10ML VIAL/SYR IV SCH (06:53)
[2024-10-14] MEDS: InsuLIN REG 1unit/0.01ml Soln (100units/ml) SC SCH ×2 (07:03→21:18)
[2024-10-14] MEDS: ACCU-CHEK COMFORT CURVE STRIP VI SCH (07:04)
[2024-10-14 08:58] VITALS: PULSE 98; RESP 25; O2SAT 95
[2024-10-14] MEDS: B-COMPLEX W/ C & FOLIC ACID(NEPHROVITE TAB) PO SCH (10:13)
[2024-10-14] MEDS: CLOPIDOGREL BISULFATE 75 MG TAB PO SCH (10:13)
[2024-10-14] MEDS: FUROSEMIDE 40 MG/4 ML VIAL IV SCH (10:19)
[2024-10-14] MEDS: FAMOTIDINE (10MG/ML) 2ML VL IV SCH (10:19)
[2024-10-14] MEDS: CARVEDILOL 3.125 MG TAB PO SCH (10:19)
[2024-10-14 15:30] VITALS: O2SAT 95
[2024-10-14 19:43] VITALS: PULSE 78; RESP 18; O2SAT 98
[2024-10-14] MEDS: ATORVASTATIN 20 MG TAB PO SCH (21:18)
[2024-10-14] MEDS: hydrALAZINE HCL 20 MG/ML VL IV ONE (23:00)
[2024-10-14] MEDS: INSULIN LANTUS (GLARGINE) 1 /0.01ml (100units/ml) SC ONE (23:41)
[2024-10-14] MEDS: QUEtiapine FUMARATE 25 MG TAB PO ONE (23:41)
[2024-10-14 23:50] VITALS: O2SAT 96
[2024-10-15] VITALS (13 sets, daily range): BP systolic 137–215; BP diastolic 34–84; PULSE 66–82; RESP 16–19; TEMP 97.2–98.5; O2SAT 92–98
[2024-10-15] MEDS: MORPHINE SULFATE INJ 2 MG/ml SYRG IV PRN (06:29)
--- NOTE | 2024-10-15 07:38 | ECG ---
[facility] Test Date: 2024-10-15 Test Time: 06:12:27 Pat Name: CLAUDIA MONTALVO Department: Respiratoy Room: 0204T A Gender: F Legislative Director: LISA : 1965 Requested By: KAREN TREVIZO Order Number: [id number] Reading MD: Franck Bledsoe Measurements Intervals [place] Rate: 69 P: 58 [place]: 184 QRS: -15 QRSD: 110 T: 23 QT: 456 QTc: 489 Interpretive Statements Sinus rhythm Borderline left axis deviation Borderline prolonged QT interval Electronically Signed On 10-16-2024 22:18:11 PDT by Franck Bledsoe Please click the below link to view image of tracing.
[2024-10-15 08:16] LABS: Alanine Aminotransferase 27 U/L (7-40); Albumin 4.6 g/dL (3.2-4.8); Alkaline Phosphatase 47 U/L (46-116); Anion Gap 12 (5-15); Aspartate Aminotransferase 23 U/L (<34); BUN/Creatinine Ratio 22.4 (10.0-20.0); Blood Urea Nitrogen 13 mg/dL (9-23); Calcium 10.2 mg/dL (8.7-10.4); Carbon Dioxide 23 mmol/L (20-31); Chloride 107 mmol/L (98-107); Potassium 3.9 mmol/L (3.5-5.1); Sodium 142 mmol/L (136-145); Total Protein 7.2 g/dL (5.7-8.2)
[2024-10-15 08:17] LABS: Bilirubin, Total 0.8 mg/dL (0.2-1.0); Glucose 114 mg/dL (74-106)
[2024-10-15] MEDS: cefTRIAXone 1GM/50ML D5W 50 ML IV SCH (08:34)
[2024-10-15 08:39] LABS: Basophils # (auto) 0.1 10 ^3/uL (0-0.2); Basophils % (auto) 0.6 % (0.0-2.0); Eosinophils # (auto) 0.3 10 ^3/uL (0-0.8); Eosinophils % (auto) 2.5 % (0.0-7.0); Hematocrit 31.5 % (36.0-46.0); Lymphocytes # (auto) 2.6 10 ^3/uL (0.4-5.4); Lymphocytes % (auto) 24.5 % (10.0-50.0); Mean Corpuscular Hemoglobin 32.1 pg (28.0-32.0); Mean Corpuscular Hgb Conc. 34.8 g/dL (32.0-36.0); Mean Corpuscular Volume 92.4 fL (80.0-100.0); Monocytes # (auto) 0.8 10 ^3/uL (0-1.3); Monocytes % (auto) 7.8 % (0.0-12.0); Neutrophils # (auto) 6.9 10 ^3/uL (1.6-8.6); Neutrophils % (auto) 64.6 % (37.0-80.0); Platelet Count (auto) 215 10^3/uL (140-450); Red Blood Cells 3.41 10^6/uL (4.0-5.20); White Blood Cell 10.7 10^3/uL (4.4-10.8)
--- NOTE | 2024-10-15 10:26 | DVHPN2 ---
Progress Note Date Seen: Oct 15, 2024 Medical Necessity Reason Pt with a Central, PICC or Fol: No Subjective Patient reports: No new complaints Review of Systems: HEENT:Normal, CVS:Normal, RESPIRATORY:Normal, GI:Normal, :Normal, MSK:Normal, NEURO:Normal Objective vital signs Vital Sign Date Time Temp Pulse Resp B/P (MAP) Pulse Ox O2 Delivery O2 Flow Rate FiO2 10/15/24 09:39 185/64 10/15/24 09:39 67 10/15/24 08:39 97.2 18 96 97.2 10/15/24 08:16 Room Air* 0 21 Total Intake and Output 10/14/24 10/14/24 10/15/24 15:00 23:00 07:00 Intake Total 0 ml Balance 0 ml medications Current Medications Medications Dose Ordered Sig/Gregory Route Start Time Stop Time Status Last Admin Dose Admin Multivit/Ca Carb/ B Cmplx/FA/Prenat 1 tab DAILY PO 10/14/24 10:00 10/15/24 09:40 1 TAB Carvedilol 3.125 mg Q12HR PO 10/14/24 10:00 10/15/24 09:39 3.125 MG Albuterol 2.5 mg Q4HPRN PRN NEB 10/14/24 00:30 Ipratropium [place] 0.5 mg Q4HPRN PRN NEB 10/14/24 00:30 Furosemide 40 mg DAILY IV 10/14/24 10:00 10/15/24 09:39 40 MG Famotidine 20 mg Q12HR IV 10/14/24 10:00 10/15/24 09:39 20 MG Atorvastatin Calcium 10 mg HS PO 10/14/24 22:00 10/14/24 21:18 10 MG Levothyroxine Sodium 88 mcg QAM@0600 PO 10/14/24 06:00 10/15/24 06:28 88 MCG Diagnostic Test (Pha) 1 strip ACHS 10/14/24 07:00 10/15/24 07:17 1 STRIP Insulin Human Regular HS SC 10/14/24 22:00 10/14/24 21:18 6 UNITS Insulin Human Regular AC SC 10/14/24 07:00 10/15/24 06:39 9 UNITS Dextrose 50 ml UD PRN IV 10/14/24 00:30 Sodium Chloride 10 ml Q8HR IV 10/14/24 06:00 10/15/24 06:29 10 ML Acetaminophen/ Hydrocodone Bitart 1 tab Q4HP PRN PO 10/14/24 00:30 10/14/24 17:41 1 TAB Ondansetron HCl 4 mg Q4HP PRN IV 10/14/24 00:30 Docusate Sodium 100 mg BIDPRN PRN PO 10/14/24 00:30 Acetaminophen 650 mg Q6HP PRN PO 10/14/24 00:30 10/14/24 05:58 650 MG Nitroglycerin 0.4 mg Q5MINP PRN SL 10/14/24 00:30 Morphine Sulfate 2 mg Q30M PRN IV 10/14/24 00:30 10/15/24 06:29 2 MG Clopidogrel Bisulfate 75 mg DAILY PO 10/14/24 10:00 10/15/24 09:40 75 MG Clonidine HCl 0.1 mg Q4HP PRN PO 10/14/24 00:45 10/15/24 04:11 0.1 MG Ceftriaxone Sodium 50 ml @ 100 mls/hr DAILY@09 IV 10/15/24 09:00 10/15/24 08:34 100 MLS/HR Examination: GENERAL:Normal, HEENT:Normal, NECK:Normal, LUNGS:Normal, CVS:Normal, ABDOMEN:Normal, ABDOMEN:Abnormal (PD CATH), MSK:Normal, MSK:Abnormal (edema++), SKIN:Normal, NEURO:Normal, :Normal laboratory and microbiology Laboratory Tests 10/15/24 08:25 10/15/24 07:29 Test 10/15/24 07:29 Range/Units Serum Glucose 114 H 74-106 mg/dL Problem List/Assessment/Plan Problem List/Assessment/Plan #1 chest pain ?cad: cardio eval #2 acute on chronic systolic/diastolic heart failure: echo, lasix iv #3 htn: cont meds #4 dm: lantus, ssi #5 esrd: on pd #6 morbid obesity #7 hypothyroidism: cont meds, tsh #8 hypokalemia: improved advance care planning- full code- time spent 19 mins Plan discussed with: Patient My Orders My Orders Orders - IWONA LAI MD Procedure Category Date Status Time Carvedilol Tablet PHA 10/15/24 Verified (Coreg Tablet) 22:00 Insulin Lantus PHA 10/15/24 Verified (Glargine) (Lantus) 10:30 Insulin Lantus PHA 10/15/24 Verified (Glargine) (Lantus) 22:00 Hydrocodone-Acet PHA 10/15/24 Verified 10/325mg Tab ([place] 10:30 Nifedipine Er PHA 10/15/24 Verified (Procardia Xl 10:30 Nifedipine Er PHA 10/16/24 Verified (Procardia Xl 10:00 Gabapentin Capsule PHA 10/15/24 Verified (Neurontin Capsule) 14:00 Urinalysis LAB 10/15/24 Uncollected 10:16 * Cardiology Consult CONS 10/15/24 Verified 10:16 Echo 2d Mode Cardiac US 10/15/24 Verified DOP 10:16 Pantoprazole PHA 10/15/24 Verified (Protonix) 10:30 Pantoprazole PHA 10/16/24 Verified (Protonix) 10:00 Basic Metabolic Panel LAB 10/16/24 Verified 06:00 Complete Blood Count LAB 10/16/24 Verified 06:00 Magnesium LAB 10/16/24 Verified 05:00 Hemoglobin A1c LAB 10/16/24 Verified 06:00 Thyroid Stimulating LAB 10/16/24 Verified Hormone 05:00 Date of Service: Oct 15, 2024 Billing Provider: IWONA LAI MD Common Visit Codes: [id number] INP/OBS CARE(HIGH) Secondary Visit Codes: [id number] CARE PLAN 30 MINUTES IWONA LAI MD Oct 15, 2024 10:25
[2024-10-15] MEDS: PANTOPRAZOLE 40 MG/10 ML VIAL INJ IV ONE (10:30)
[2024-10-15 10:56] LABS: Urine Bacteria FEW /hpf (None Seen); Urine Blood TRACE /uL (Negative); Urine Clarity Clear (Clear); Urine Color Colorless (Yellow); Urine Protein, UAD 2+ (Negative); Urine Specific Gravity 1.009 (1.001-1.035); Urine Squamous Epithelial Cell FEW /hpf (<5); Urine Urobilinogen Normal (Negative); Urine WBC 3 /HPF (0-5)
[2024-10-15] MEDS: INSULIN LANTUS (GLARGINE) 1 /0.01ml (100units/ml) SC ONE (11:05)
[2024-10-15] MEDS: NIFEdipine ER 30 MG TAB PO ONE (11:17)
[2024-10-15] MEDS: ASPirin 81 mg TAB PO ONE (11:18)
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
[2024-10-15] MEDS: GABAPENTIN 300 MG CAP PO SCH (15:04)
[2024-10-15] MEDS: HYDROcodone-ACET 10/325MG TAB PO PRN (15:19)
[2024-10-15] MEDS: ONDANSETRON HCL 4 MG/2 ML VIAL IV PRN (16:56)
--- NOTE | 2024-10-15 18:35 | DVHINCON2 ---
Date of service: Oct 15, [address] Nilson Starkey Reason for Consultation Peritoneal Dialysis History of Present Illness 59 Y/O F with history of ESRD on PD, HTN, Hypothyroidism, obesity presented with chief complaint of chest pain. troponin negative. Nephrology consulted for roberto ntenance of dialysis. K is 3.9. Patient missed her PD last night due to being in ER. she did a manual exachange. her BP is elevated today, SBP in 200s. BP is better controlled at home. She has brought in her PD cycler and supplies to do her own dialysis. Past Medical History ESRD HTN Hypothyroidism Past Surgical History PD cath placement Allergies: Coded Allergies: NO KNOWN ALLERGIES (Unverified , 02/21/23) Home Meds Active Scripts Levofloxacin Hemihydrate (LEVAQUIN 500 MG) 500 Mg Tab, 0.5 TAB PO DAILY, #7 TAB Prov:YADY MOSS MD 11/18/23 Bumetanide (Bumex Tablet) 1 Mg Tab, 1 MG PO BID for 30 Days, #60 TAB BLK BX WARNING-CAN LEAD TO PROFOUND DIURESIS WITH FLUID- ELECTROLYTE LOSS Prov:OIMD MISHRA [employer] 03/04/23 Reported Medications Diclofenac Sodium (Topical) (Voltaren Arthritis Pain) 1 % Gel, 1 APPLIC TOP Q8HR PRN for PAIN for 30 Days, #100 APPLY TO AFFECTED AREA TOPICALLY EVERY 8 HOURS NEEDED FOR PAIN. 02/29/24 Clonidine Hydrochloride (Clonidine Hcl) 0.1 Mg Tab, 1 TAB PO DAILY for 30 Days, #30 02/29/24 Insulin Glargine (Lantus Solostar) 100 Unit/Ml Inj, 40 UNIT SC BID 02/28/24 Nifedipine (Nifedipine Er) 90 Mg Tab, 90 MG PO DAILY 02/28/24 Furosemide (Furosemide) 40 Mg Tab, 80 MG PO BIDD 02/28/24 Levothyroxine Sodium (Levothyroxine Sodium) 25 Mcg Tab, 75 MCG PO QAM, % 02/28/24 B-Complex W/ C & Folic Acid (Shelley-Omid) Tab, 1 TAB PO DAILY for 30 Days, #30 02/28/24 Clopidogrel Bisulfate (CLOPIDOGREL) 75 Mg Tab, 75 MG PO DAILY, MG 02/28/24 Calcitriol (Calcitriol) 0.25 Mcg Cap, 0.25 MCG PO DAILY, MCG 02/28/24 Metolazone (Metolazone) 5 Mg Tab, 1 TAB PO MWF for 30 Days, #15 TAKE 1 TABLET BY MOUTH 3 TIMES A WEEK ON TUESDAY, TUESDAY, AND TUESDAY. 02/28/24 Docusate Sodium (Sb Docusate Sodium) 100 Mg Cap, 100 MG PO BID, CAP 02/28/24 Nifedipine (Nifedipine Er) 60 Mg Tab, 1 TAB PO DAILY, #30 TAB 5 Refills 02/21/23 Atorvastatin Calcium (Lipitor) 20 Mg Tab, 1 TAB PO DAILY, #90 TAB 1 Refill 02/21/23 Clopidogrel Bisulfate (Plavix) 75 Mg Tab, 75 MG PO DAILY, TAB 02/21/23 Lisinopril (Lisinopril) 20 Mg Tab, 1 TAB PO DAILY, #30 TAB 5 Refills 02/21/23 Hydrocodone-Acetaminophen (Hydrocodone/Acetaminophen 10-325 mg) 1 Tab Tab, 1 TAB PO TID, TAB 02/21/23 Cyclobenzaprine Hcl (Cyclobenzaprine Hcl) 10 Mg Tab, 53 MG PO HS PRN for AGITATION for 30 Days, MG 02/21/23 Ferrous Sulfate (Ferrous Sulfate) 325 Mg Tab, 325 MG PO DAILY for 30 Days, MG 02/21/23 Quetiapine Fumerate (QUETIAPINE FUMARATE) 300 Mg Tab, 300 MG PO for 30 Days, MG 02/21/23 Gabapentin (Gabapentin) 300 Mg Cap, 1 CAP PO TID, #90 CAP 5 Refills 02/21/23 Levothyroxine Sodium (Levothyroxine Sodium) 88 Mcg Tab, 75 MCG PO QAM for 30 Days, MCG 02/21/23 Carvedilol (Coreg) 12.5 Mg Tab, 1 TAB PO BID, #180 TAB 1 Refill 02/21/23 Pantoprazole Sodium Sesquihydr (Protonix) 40 Mg Tab, 40 MG PO DAILY, #30 TAB 02/21/23 Discontinued Reported Medications Icosapent Ethyl (Icosapent Ethyl) 1 Gm Cap, 2 CAP PO BIDWM for 30 Days, #10 02/29/24 Lidocaine (Lidocaine) 5 % Pad, 1 PATCH TOP DAILY for 30 Days, #30 APPLY 1 PATCH TOPICALLY EVERYDAY 12 HOURS ON & 12 HOURS OFF. 02/29/24 Insulin Aspart (Novolog Flexpen Relion) 100 Unit/Ml Inj, UNIT SC UD for 66 Days, #30 INJECT SUBCUTANEOUSLY DIRECTED PER SLIDING SCALE (MAX 45 UNITS PER DAY). 02/29/24 Pantoprazole Sodium Sesquihydr (Pantoprazole Sodium) 40 Mg Tab, 1 TAB PO DAILY for 90 Days, #90 02/29/24 Carvedilol (Carvedilol) 12.5 Mg Tab, 1 TAB PO BID for 30 Days, #60 02/28/24 Hydrocodone-Acetaminophen (Hydrocodone/Acetaminophen 10-325 mg) 1 Tab Tab, 1 TAB PO Q8HR PRN for SEVERE PAIN for 30 Days, #75 02/28/24 Quetiapine Fumerate (QUETIAPINE FUMARATE) 400 Mg Tab, 400 MG PO at bedtime, MG 02/28/24 Lisinopril (Lisinopril) 20 Mg Tab, 20 MG PO DAILY, MG 02/28/24 Ferric Citrate (Auryxia) 210 Mg Tab, 2 TAB PO BIDWM for 90 Days, #120 02/28/24 Atorvastatin Calcium (ATORVASTATIN CALCIUM) 20 Mg Tab, 20 MG PO DAILY, TAB 02/28/24 Current Medications Current Medications Medications (Trade) Dose Ordered Sig/Gregory Route PRN Reason Start Time Stop Time Status Last Admin Atorvastatin Calcium (Lipitor) 10 mg HS PO 10/14/24 22:00 10/14/24 21:18 Insulin Human Regular (InsuLIN R) HS SC 10/14/24 22:00 10/14/24 21:18 Ceftriaxone Sodium 50 ml @ 100 mls/hr DAILY@09 IV 10/15/24 09:00 10/15/24 08:34 Carvedilol (Coreg Tablet) 12.5 mg Q12HR PO 10/15/24 22:00 Insulin Glargine (Lantus) 30 units BID@0700,2200 SC 10/15/24 22:00 Acetaminophen/ Hydrocodone Bitart ([place] 10/325MG Tab) 1 tab Q6HP PRN PO MODERATE PAIN (4-6 PAIN SCALE) 10/15/24 10:30 10/15/24 15:19 Nifedipine (Procardia Xl (Time-Release)) 60 mg DAILY PO 10/16/24 10:00 Gabapentin (Neurontin Capsule) 300 mg TID PO 10/15/24 14:00 10/15/24 15:04 Pantoprazole Sodium (Protonix) 40 mg DAILY IV 10/16/24 10:00 Aspirin 81 mg DAILY PO 10/16/24 10:00 Lactulose 15 ml TID PO 10/15/24 22:00 Family History: Colon cancer G8 MOTHER G8 FATHER Diabetes mellitus G8 MOTHER G8 MOTHER Diabetes mellitus G8 MOTHER G8 MOTHER FH: stomach cancer Hypertension G8 MOTHER Prostate carcinoma G8 FATHER Review of Systems as per HPI, all other systems were reviewed and are negative. H&P Exam Vital Signs/I&O Vital Sign Date Time Temp Pulse Resp B/P (MAP) Pulse Ox O2 Delivery O2 Flow Rate FiO2 10/15/24 16:34 98.4 69 18 215/69 (117) 98 98.4 10/15/24 08:16 Room Air* 0 21 Intake and Output 10/14/24 10/15/24 19:00 07:00 Intake Total 0 ml Balance 0 ml Intake Oral 0 ml Physical Exam Gen: NAD HEENT: NC, AT Lungs: crackles lung bases Cardiac: rrr, no murmur Abd: + PD cath, exit site clear Ext: + 1 edema b/l legs Neuro: AAOx3, no focal deficits Labs/Diagnostic Data Labs/Diagnostic Data Laboratory Tests Test 10/15/24 16:53 10/15/24 14:50 10/15/24 11:01 10/15/24 10:30 Range/Units POC Glucose 271 H 221 H 70-106 mg/dl D-Dimer, Quantitative 0.38 0.0-0.49 mg/L FEU Urine Color Colorless Yellow Urine Clarity Clear Clear Urine pH 8.0 5.0-9.0 Urine Specific [place] 1.009 1.001-1.035 Urine Protein 2+ H Negative Urine Ketones Negative Negative Urine Blood Trace H Negative /uL Urine Nitrite Negative Negative Urine Bilirubin Negative Negative Urine Urobilinogen Normal Negative mg/dL Urine Leukocyte Esterase Negative Negative /uL Urine RBC 2 0 - 4 /hpf Urine Microscopic WBC 3 0-5 /HPF Urine Squamous Epithelial Cells Few <5 /hpf Urine Bacteria Few H None Seen /hpf Urine Glucose 3+ H Normal mg/dL Test 10/15/24 08:25 10/15/24 07:29 10/15/24 06:38 10/14/24 21:05 Range/Units White Blood Count 10.7 4.4-10.8 10^3/uL Red Blood Count 3.41 L 4.0-5.20 10^6/uL Hemoglobin 11.0 L 12.2-16.2 g/dL Hematocrit 31.5 L 36.0-46.0 % Mean Corpuscular Volume 92.4 80.0-100.0 fL Mean Corpuscular Hemoglobin 32.1 H 28.0-32.0 pg Mean Corpuscular Hemoglobin Concent 34.8 32.0-36.0 g/dL Red Cell Distribution Width 15.0 H 11.8-14.3 % Platelet Count 215 140-450 10^3/uL Mean Platelet Volume 8.1 6.9-10.8 fL Neutrophils (%) (Auto) 64.6 37.0-80.0 % Lymphocytes (%) (Auto) 24.5 10.0-50.0 % Monocytes (%) (Auto) 7.8 0.0-12.0 % Eosinophils (%) (Auto) 2.5 0.0-7.0 % Basophils (%) (Auto) 0.6 0.0-2.0 % Neutrophils # (Auto) 6.9 1.6-8.6 10 ^3/uL Lymphocytes # (Auto) 2.6 0.4-5.4 10 ^3/uL Monocytes # (Auto) 0.8 0-1.3 10 ^3/uL Eosinophils # (Auto) 0.3 0-0.8 10 ^3/uL Basophils # (Auto) 0.1 0-0.2 10 ^3/uL Nucleated Red Blood Cells 0.0 % Sodium Level 142 136-145 mmol/L Potassium Level 3.9 3.5-5.1 mmol/L Chloride Level 107 # 98-107 mmol/L Carbon Dioxide Level 23 20-31 mmol/L Anion Gap 12 5-15 Blood Urea Nitrogen 13 # 9-23 mg/dL Creatinine 0.58 # 0.550-1.02 mg/dL Glomerular Filtration Rate Calc 103 >90 mL/min BUN/Creatinine Ratio 22.4 H 10.0-20.0 Serum Glucose 114 H 74-106 mg/dL Calcium Level 10.2 8.7-10.4 mg/dL Total Bilirubin 0.8 0.2-1.0 mg/dL Aspartate Amino Transferase (AST) 23 <34 U/L Alanine Aminotransferase (ALT) 27 7-40 U/L Alkaline Phosphatase 47 46-116 U/L Total Protein 7.2 5.7-8.2 g/dL Albumin 4.6 3.2-4.8 g/dL POC Glucose 273 H 271 H 70-106 mg/dl Test 10/14/24 17:11 10/14/24 12:03 10/14/24 06:56 10/13/24 19:42 Range/Units POC Glucose 309 H 358 H 260 H 70-106 mg/dl Troponin I High Sensitivity 13 </=34 ng/L Thyroid Stimulating Hormone (TSH) 1.23 0.55-4.78 uIU/mL Test 10/13/24 18:37 Range/Units White Blood Count 13.0 H 4.4-10.8 10^3/uL Red Blood Count 3.52 L 4.0-5.20 10^6/uL Hemoglobin 11.3 L 12.2-16.2 g/dL Hematocrit 32.2 L 36.0-46.0 % Mean Corpuscular Volume 91.6 80.0-100.0 fL Mean Corpuscular Hemoglobin 32.2 H 28.0-32.0 pg Mean Corpuscular Hemoglobin Concent 35.1 32.0-36.0 g/dL Red Cell Distribution Width 14.9 H 11.8-14.3 % Platelet Count 255 140-450 10^3/uL Mean Platelet Volume 7.9 6.9-10.8 fL Neutrophils (%) (Auto) 72.0 37.0-80.0 % Lymphocytes (%) (Auto) 18.1 10.0-50.0 % Monocytes (%) (Auto) 6.6 0.0-12.0 % Eosinophils (%) (Auto) 2.4 0.0-7.0 % Basophils (%) (Auto) 0.9 0.0-2.0 % Neutrophils # (Auto) 9.4 H 1.6-8.6 10 ^3/uL Lymphocytes # (Auto) 2.3 0.4-5.4 10 ^3/uL Monocytes # (Auto) 0.9 0-1.3 10 ^3/uL Eosinophils # (Auto) 0.3 0-0.8 10 ^3/uL Basophils # (Auto) 0.1 0-0.2 10 ^3/uL Nucleated Red Blood Cells 0.1 % Sodium Level 143 136-145 mmol/L Potassium Level 2.5 *L 3.5-5.1 mmol/L Chloride Level 97 L 98-107 mmol/L Carbon Dioxide Level 35 H 20-31 mmol/L Anion Gap 11 5-15 Blood Urea Nitrogen 23 9-23 mg/dL Creatinine 4.26 H 0.550-1.02 mg/dL Glomerular Filtration Rate Calc 11 >90 mL/min BUN/Creatinine Ratio 5.4 L 10.0-20.0 Serum Glucose 164 H 74-106 mg/dL Calcium Level 9.3 8.7-10.4 mg/dL Troponin I High Sensitivity 15 </=34 ng/L B-Type Natriuretic Peptide 292.99 0-100 pg/mL Assessment ESRD on PD HTN urgency Chest pain r/ oACS. troponin negative hypothyroidism Anemia of CKD Hyperphosphatemia secondary hyperparathyroidism Obesity Plan: patient will do her own peritoneal dialysis. she has brought in her cysler and supplies cardiology consult appreciated Increase Coreg 25 mg PO BID Continue nifedipine ER 60 mg daily BP is expected to improve with peritoneal dialysis/ultrafiltration starting tonight Plan discussed with: Patient BRUNA MG MD Oct 15, 2024 18:35
[2024-10-15] MEDS ORDERED: CARVEDILOL 3.125 MG TAB PO SCH ×2 (18:45→22:00)
[2024-10-15] MEDS: MORPHINE SULFATE 4 MG/ML SYR/VIAL IV ONE (19:02)
[2024-10-15] MEDS: CARVEDILOL 12.5 MG TAB PO SCH (19:02)
[2024-10-15] MEDS: LACTULOSE 20Gm/30ML SOLN PO SCH (22:04)
[2024-10-15] MEDS: INSULIN LANTUS (GLARGINE) 1 /0.01ml (100units/ml) SC SCH (22:09)
[2024-10-16] VITALS (10 sets, daily range): BP systolic 115–173; BP diastolic 54–68; PULSE 64–83; RESP 15–19; TEMP 96.3–98; O2SAT 90–100
[2024-10-16 06:28] LABS: Basophils # (auto) 0 10 ^3/uL (0-0.2); Basophils % (auto) 0.3 % (0.0-2.0); Eosinophils # (auto) 0.4 10 ^3/uL (0-0.8); Eosinophils % (auto) 3.6 % (0.0-7.0); Hematocrit 31.8 % (36.0-46.0); Hemoglobin 11.1 g/dL (12.2-16.2); Lymphocytes # (auto) 2.1 10 ^3/uL (0.4-5.4); Lymphocytes % (auto) 19.7 % (10.0-50.0); Mean Corpuscular Hemoglobin 32.2 pg (28.0-32.0); Mean Corpuscular Hgb Conc. 35.1 g/dL (32.0-36.0); Mean Corpuscular Volume 91.8 fL (80.0-100.0); Monocytes # (auto) 0.7 10 ^3/uL (0-1.3); Monocytes % (auto) 6.9 % (0.0-12.0); Neutrophils # (auto) 7.5 10 ^3/uL (1.6-8.6); Neutrophils % (auto) 69.5 % (37.0-80.0); Platelet Count (auto) 246 10^3/uL (140-450); Red Blood Cells 3.46 10^6/uL (4.0-5.20); White Blood Cell 10.7 10^3/uL (4.4-10.8)
[2024-10-16 06:34] LABS: Sodium 142 mmol/L (136-145)
[2024-10-16 06:35] LABS: Anion Gap 13 (5-15)
[2024-10-16 06:36] LABS: Calcium 8.9 mg/dL (8.7-10.4)
[2024-10-16 06:41] LABS: BUN/Creatinine Ratio 5.3 (10.0-20.0); Magnesium 2.1 mg/dL (1.6-2.6)
[2024-10-16 06:50] LABS: Blood Urea Nitrogen 26 mg/dL (9-23); Carbon Dioxide 32 mmol/L (20-31); Chloride 97 mmol/L (98-107); Glucose 189 mg/dL (74-106); Potassium 2.8 mmol/L (3.5-5.1)
--- NOTE | 2024-10-16 07:00 | DVHSR ---
APPROVED REPORT EXAM: Two-dimensional and M-mode echocardiogram with Doppler and color Doppler. Blood Pressure: 185/64 mmHg INDICATION CHF RISK FACTORS Obesity: Height: 5'2", Weight: 245 DIMENSIONS LVDd4.8 (3.8-5.7cm)LA (2D)3.9 (1.9-4.0cm)Aortic Root3.5 (2.0-3.7cm) LVDs3.2 (2.5-4.0cm)LA (MM) (1.9-4.0cm)Aortic Cusp Exc1.7 (1.5-2.0cm) EF (%) 60.0 (55-70%)Rt. Atrium4.0 (1.9-4.0cm)Asc. Aorta cm IVSd1.3 (0.7-1.1cm)RV (D) (1.8-2.4cm) PWd1.2 (0.7-1.1cm) Mitral Valve MitralMitral Stenosis E wave1.33m/sMV Mean GR.5mmHg A wave1.53m/sMV Peak GR.11mmHg E/A ratio0.92D MVAcm2 DECEL [id number] 1/2 [id number] IVRTmsDop MVA2.37cm2 Aortic Valve Aortic ValveAortic Stenosis V10.95m/Mj Mean GR.4mmHg V21.38m/Mj Peak GR.8mmHg LVOT Diameter1.9 (1.8-2.4cm)Doppler AVA1.95cm2 Pulmonic Valve V20.94m/s Tricuspid Valve TR Velocity2.69m/s [id number] Other Information Quality : LimitedRhythm : Technically limited study due to body habitus. Conclusion Left ventricle: Mild concentric left ventricular hypertrophy was seen LVEF was around 60-65%. There was no gross wall motion abnormality. Abnormal relaxation of left ventricular function was observed . Right ventricle was normal-sized with normal systolic function. Both atria were normal-sized. Aortic valve: Aortic valve was trileaflet. There was no aortic stenosis. There was trace aortic ins ufficiency. There was trace mitral regurgitation. Mitral annular calcification was observed. Nodul ar calcification of mitral valve (mostly posterior leaflet) was observed. There was mild tricuspid r egurgitation. There was mild pulmonary valve insufficiency. Right ventricular systolic pressure was assessed around 32 mm Hg. There was no pericardial effusion.
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
[2024-10-16] MEDS: ASPirin 81 mg TAB PO SCH (09:40)
[2024-10-16] MEDS: NIFEdipine ER 30 MG TAB PO SCH (09:41)
[2024-10-16] MEDS: PANTOPRAZOLE 40 MG/10 ML VIAL INJ IV SCH (09:41)
--- NOTE | 2024-10-16 09:41 | DVHPN2 ---
Progress Note Date Seen: Oct 16, 2024 Medical Necessity Reason Pt with a Central, PICC or Fol: No Subjective Patient reports: No new complaints Review of Systems: HEENT:Normal, CVS:Normal, RESPIRATORY:Normal, GI:Normal, :Normal, MSK:Normal, NEURO:Normal Objective vital signs Vital Sign Date Time Temp Pulse Resp B/P (MAP) Pulse Ox O2 Delivery O2 Flow Rate FiO2 10/16/24 09:00 96.3 68 18 150/67 (94) 99 96.3 10/16/24 08:50 Room Air* 0 21 Total Intake and Output 10/15/24 10/15/24 10/16/24 15:00 23:00 07:00 Intake Total 1000 ml 210 ml Balance 1000 ml 210 ml medications Current Medications Medications Dose Ordered Sig/Gregory Route Start Time Stop Time Status Last Admin Dose Admin Multivit/Ca Carb/ B Cmplx/FA/Prenat 1 tab DAILY PO 10/14/24 10:00 10/15/24 09:40 1 TAB Albuterol 2.5 mg Q4HPRN PRN NEB 10/14/24 00:30 Ipratropium [place] 0.5 mg Q4HPRN PRN NEB 10/14/24 00:30 Furosemide 40 mg DAILY IV 10/14/24 10:00 10/15/24 09:39 40 MG Atorvastatin Calcium 10 mg HS PO 10/14/24 22:00 10/15/24 22:04 10 MG Levothyroxine Sodium 88 mcg QAM@0600 PO 10/14/24 06:00 10/16/24 06:37 88 MCG Diagnostic Test (Pha) 1 strip ACHS 10/14/24 07:00 10/16/24 06:35 1 STRIP Insulin Human Regular HS SC 10/14/24 22:00 10/15/24 22:09 4 UNITS Insulin Human Regular AC SC 10/14/24 07:00 10/16/24 06:34 6 UNITS Dextrose 50 ml UD PRN IV 10/14/24 00:30 Sodium Chloride 10 ml Q8HR IV 10/14/24 06:00 10/15/24 22:04 10 ML Ondansetron HCl 4 mg Q4HP PRN IV 10/14/24 00:30 10/15/24 16:56 4 MG Docusate Sodium 100 mg BIDPRN PRN PO 10/14/24 00:30 Acetaminophen 650 mg Q6HP PRN PO 10/14/24 00:30 10/14/24 05:58 650 MG Nitroglycerin 0.4 mg Q5MINP PRN SL 10/14/24 00:30 Morphine Sulfate 2 mg Q30M PRN IV 10/14/24 00:30 10/15/24 06:29 2 MG Clopidogrel Bisulfate 75 mg DAILY PO 10/14/24 10:00 10/15/24 09:40 75 MG Clonidine HCl 0.1 mg Q4HP PRN PO 10/14/24 00:45 10/15/24 15:21 0.1 MG Ceftriaxone Sodium 50 ml @ 100 mls/hr DAILY@09 IV 10/15/24 09:00 10/15/24 08:34 100 MLS/HR Insulin Glargine 30 units BID@0700,2200 SC 10/15/24 22:00 10/16/24 06:34 30 UNITS Acetaminophen/ Hydrocodone Bitart 1 tab Q6HP PRN PO 10/15/24 10:30 10/16/24 06:40 1 TAB Nifedipine 60 mg DAILY PO 10/16/24 10:00 Gabapentin 300 mg TID PO 10/15/24 14:00 10/16/24 06:37 300 MG Pantoprazole Sodium 40 mg DAILY IV 10/16/24 10:00 Aspirin 81 mg DAILY PO 10/16/24 10:00 Lactulose 15 ml TID PO 10/15/24 22:00 10/16/24 06:36 15 ML Carvedilol 25 mg Q12H PO 10/15/24 19:00 10/16/24 06:39 25 MG Prochlorperazine Maleate 10 mg QIDP PRN PO 10/15/24 19:45 Guaifenesin/ Dextromethorphan 10 ml Q4HP PRN PO 10/16/24 07:15 Examination: GENERAL:Normal, HEENT:Normal, NECK:Normal, LUNGS:Normal, CVS:Normal, ABDOMEN:Normal, ABDOMEN:Abnormal (PD CATH), MSK:Normal, MSK:Abnormal (RIGHT CHEST TENDERNESS), SKIN:Normal, NEURO:Normal, :Normal laboratory and microbiology Laboratory Tests 10/16/24 05:46 Test 10/16/24 05:46 Range/Units Serum Glucose 189 H 74-106 mg/dL Problem List/Assessment/Plan Problem List/Assessment/Plan #1 chest pain ?cad ? musculoskeletal: iv toradol #2 acute on chronic systolic/diastolic heart failure: echo, lasix iv #3 htn: cont meds #4 dm: lantus, ssi #5 esrd: on pd #6 morbid obesity #7 hypothyroidism: cont meds, tsh #8 hypokalemia: improved advance care planning- full code- time spent 19 mins Plan discussed with: Patient My Orders My Orders Orders - IWONA LAI MD Procedure Category Date Status Time Insulin Lantus PHA 10/15/24 In Process (Glargine) (Lantus) 22:00 Hydrocodone-Acet PHA 10/15/24 In Process 10/325mg Tab ([place] 10:30 Nifedipine Er PHA 10/16/24 In Process (Procardia Xl 10:00 Gabapentin Capsule PHA 10/15/24 In Process (Neurontin Capsule) 14:00 Echo 2d Mode Cardiac US 10/15/24 Resulted DOP 10:16 Pantoprazole PHA 10/16/24 In Process (Protonix) 10:00 Aspirin Tablet PHA 10/16/24 In Process 10:00 Insert Midline ORDERS 10/16/24 Transmitted 06:01 Date of Service: Oct 16, 2024 Billing Provider: IWONA LAI MD Common Visit Codes: [id number] INP/OBS CARE(HIGH) IWONA LAI MD Oct 16, 2024 09:41
[2024-10-16] MEDS ORDERED: KETOROLAC TROMETH 30 MG/ML 1ML VIAL IV ONE (09:45)
[2024-10-16] MEDS ORDERED: KETOROLAC TROMETH 30 MG/ML 1ML VIAL IV SCH (14:00)
[2024-10-16] MEDS: POTASSIUM EFFERVESENT TAB 25 MEQ PO ONE (17:30)
--- NOTE | 2024-10-16 17:34 | DVHPN2 ---
Progress Note - Dictate Date Seen: Oct 16, 2024 Medical Necessity Reason Pt with a Central, PICC or Fol: No vital signs Vital Sign Date Time Temp Pulse Resp B/P (MAP) Pulse Ox O2 Delivery O2 Flow Rate FiO2 10/16/24 16:52 97.9 69 18 173/68 (103) 96 97.9 10/16/24 08:50 Room Air* 0 21 Total Intake and Output 10/15/24 10/15/24 10/16/24 15:00 23:00 07:00 Intake Total 1000 ml 210 ml Balance 1000 ml 210 ml medications Current Medications Medications Dose Ordered Sig/Gregory Route Start Time Stop Time Status Last Admin Dose Admin Multivit/Ca Carb/ B Cmplx/FA/Prenat 1 tab DAILY PO 10/14/24 10:00 10/16/24 09:40 1 TAB Albuterol 2.5 mg Q4HPRN PRN NEB 10/14/24 00:30 Ipratropium [place] 0.5 mg Q4HPRN PRN NEB 10/14/24 00:30 Furosemide 40 mg DAILY IV 10/14/24 10:00 10/15/24 09:39 40 MG Atorvastatin Calcium 10 mg HS PO 10/14/24 22:00 10/15/24 22:04 10 MG Levothyroxine Sodium 88 mcg QAM@0600 PO 10/14/24 06:00 10/16/24 06:37 88 MCG Diagnostic Test (Pha) 1 strip ACHS 10/14/24 07:00 10/16/24 06:35 1 STRIP Insulin Human Regular HS SC 10/14/24 22:00 10/15/24 22:09 4 UNITS Insulin Human Regular AC SC 10/14/24 07:00 10/16/24 06:34 6 UNITS Dextrose 50 ml UD PRN IV 10/14/24 00:30 Sodium Chloride 10 ml Q8HR IV 10/14/24 06:00 10/16/24 14:00 10 ML Ondansetron HCl 4 mg Q4HP PRN IV 10/14/24 00:30 10/16/24 17:12 4 MG Docusate Sodium 100 mg BIDPRN PRN PO 10/14/24 00:30 Acetaminophen 650 mg Q6HP PRN PO 10/14/24 00:30 10/14/24 05:58 650 MG Nitroglycerin 0.4 mg Q5MINP PRN SL 10/14/24 00:30 Morphine Sulfate 2 mg Q30M PRN IV 10/14/24 00:30 10/15/24 06:29 2 MG Clopidogrel Bisulfate 75 mg DAILY PO 10/14/24 10:00 10/16/24 09:41 75 MG Ceftriaxone Sodium 50 ml @ 100 mls/hr DAILY@09 IV 10/15/24 09:00 10/16/24 09:41 100 MLS/HR Insulin Glargine 30 units BID@0700,2200 SC 10/15/24 22:00 10/16/24 06:34 30 UNITS Acetaminophen/ Hydrocodone Bitart 1 tab Q6HP PRN PO 10/15/24 10:30 10/16/24 06:40 1 TAB Nifedipine 60 mg DAILY PO 10/16/24 10:00 10/16/24 09:41 60 MG Gabapentin 300 mg TID PO 10/15/24 14:00 10/16/24 15:58 300 MG Pantoprazole Sodium 40 mg DAILY IV 10/16/24 10:00 10/16/24 09:41 40 MG Aspirin 81 mg DAILY PO 10/16/24 10:00 10/16/24 09:40 81 MG Lactulose 15 ml TID PO 10/15/24 22:00 10/16/24 15:58 15 ML Carvedilol 25 mg Q12H PO 10/15/24 19:00 10/16/24 06:39 25 MG Prochlorperazine Maleate 10 mg QIDP PRN PO 10/15/24 19:45 Guaifenesin/ Dextromethorphan 10 ml Q4HP PRN PO 10/16/24 07:15 Clonidine HCl 0.1 mg Q6HP PRN PO 10/16/24 09:45 Ketorolac Tromethamine 15 mg Q8HR IV 10/16/24 14:00 10/21/24 13:59 Hold objective Gen: NAD HEENT: NC, AT Lungs: crackles lung bases Cardiac: rrr, no murmur Abd: + PD cath, exit site clear Ext: + 1 edema b/l legs Neuro: AAOx3, no focal deficits laboratory and microbiology Laboratory Tests 10/16/24 05:46 Test 10/16/24 05:46 Range/Units Serum Glucose 189 H 74-106 mg/dL Assessment/Plan ESRD on PD HTN urgency Chest pain r/o ACS. troponin negative hypothyroidism Anemia of CKD Hyperphosphatemia secondary hyperparathyroidism Obesity Plan: continue peritoneal dialysis. she has brought in her cycler and supplies, and will do it overnight. cardiology consult appreciated Continue Coreg 25 mg PO BID Continue nifedipine ER 60 mg daily Plan discussed with: Patient BRUNA MG MD Oct 16, 2024 17:34
[2024-10-16] MEDS ORDERED: HYDR-3682 PO (21:49)
[2024-10-17] VITALS (9 sets, daily range): BP systolic 118–167; BP diastolic 51–66; PULSE 69–89; RESP 14–22; TEMP 97.6–98.8; O2SAT 90–95
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
[2024-10-17 06:37] LABS: Sodium 142 mmol/L (136-145)
[2024-10-17 06:38] LABS: Anion Gap 11 (5-15)
[2024-10-17 06:39] LABS: Calcium 9.1 mg/dL (8.7-10.4); Carbon Dioxide 34 mmol/L (20-31); Chloride 97 mmol/L (98-107); Potassium 2.8 mmol/L (3.5-5.1)
[2024-10-17 06:44] LABS: BUN/Creatinine Ratio 4.7 (10.0-20.0); Blood Urea Nitrogen 22 mg/dL (9-23)
[2024-10-17 06:45] LABS: Glucose 260 mg/dL (74-106)
[2024-10-17] MEDS: cloNIDine HCL 0.1 MG TAB PO PRN (09:17)
[2024-10-17] MEDS ORDERED: DEXTROSE (50%) 50ML SYRG IV PRN (11:45)
[2024-10-17] MEDS: ACCU-CHEK COMFORT CURVE STRIP VI SCH (12:20)
[2024-10-17] MEDS: InsuLIN REG 1unit/0.01ml Soln (100units/ml) SC SCH (12:26)
--- NOTE | 2024-10-17 13:28 | DVHINCON2 ---
GI Consult Consult Note GI consult note Date of Consultation: 10/17/2024 Chief Complaint: Nausea and vomiting Referring Physician: Dr. Hyde H&P: 59-year-old female presented to ER with complains of shortness of breath and chest pain Patient also complaining of nausea and vomiting, on and off for the past three years. Patient was hospitalized three years ago at [place] where she presented with nausea vomiting and GI bleed, and had EGD and colonoscopy and diagnosed with colitis Patient admits to mostly throwing up food and yellow bile. No hematemesis. No melena or red blood in stool. Last BM on Tuesday. Patient takes lactulose which usually helps her but is not helping at this time. Patient on aspirin and Plavix. Last dose of Plavix on 10/14/2024 Past Medical History: COPD, DM, ESRD, GERD, High Lipids, HTN, Thyroid Past Surgical History: Peritoneal dialysis, Cholecystectomy, , Hysterectomy, Tonsillectomy Social History: NO smoking, drinking ETOH and use of illegal drugs. Family History: Noncontributory Review of Systems: Constitutional: no fever, chill, weight loss HEENT: no eye pain, no hearing loss, no oral lesion, no scleral icterus Heart: no chest pain, no chest pressure Lung: no cough, no dyspnea with exertion Abdomen: see HPI Physical exam: General: NAD, AAOX3 Chest: lung swenson clear to auscultation Heart: RRR, no murmur Abdomen: no tenderness to palpation, +BS Labs: Labs Test 10/17/24 11:37 10/17/24 04:52 10/16/24 05:46 10/15/24 14:50 Range/Units POC Glucose 200 H 70-106 mg/dl Sodium Level 142 136-145 mmol/L Potassium Level 2.8 L 3.5-5.1 mmol/L Chloride Level 97 L 98-107 mmol/L Carbon Dioxide Level 34 H 20-31 mmol/L Anion Gap 11 5-15 Blood Urea Nitrogen 22 9-23 mg/dL Creatinine 4.65 H 0.550-1.02 mg/dL Glomerular Filtration Rate Calc 10 >90 mL/min BUN/Creatinine Ratio 4.7 L 10.0-20.0 Serum Glucose 260 H 74-106 mg/dL Calcium Level 9.1 8.7-10.4 mg/dL White Blood Count 10.7 4.4-10.8 10^3/uL Red Blood Count 3.46 L 4.0-5.20 10^6/uL Hemoglobin 11.1 L 12.2-16.2 g/dL Hematocrit 31.8 L 36.0-46.0 % Mean Corpuscular Volume 91.8 80.0-100.0 fL Mean Corpuscular Hemoglobin 32.2 H 28.0-32.0 pg Mean Corpuscular Hemoglobin Concent 35.1 32.0-36.0 g/dL Red Cell Distribution Width 15.0 H 11.8-14.3 % Platelet Count 246 140-450 10^3/uL Mean Platelet Volume 8.1 6.9-10.8 fL Neutrophils (%) (Auto) 69.5 37.0-80.0 % Lymphocytes (%) (Auto) 19.7 10.0-50.0 % Monocytes (%) (Auto) 6.9 0.0-12.0 % Eosinophils (%) (Auto) 3.6 0.0-7.0 % Basophils (%) (Auto) 0.3 0.0-2.0 % Neutrophils # (Auto) 7.5 1.6-8.6 10 ^3/uL Lymphocytes # (Auto) 2.1 0.4-5.4 10 ^3/uL Monocytes # (Auto) 0.7 0-1.3 10 ^3/uL Eosinophils # (Auto) 0.4 0-0.8 10 ^3/uL Basophils # (Auto) 0 0-0.2 10 ^3/uL Nucleated Red Blood Cells 0.0 % Hemoglobin A1c 7.3 H <5.7 % A1C Magnesium Level 2.1 1.6-2.6 mg/dL Thyroid Stimulating Hormone (TSH) 2.42 0.55-4.78 uIU/mL D-Dimer, Quantitative 0.38 0.0-0.49 mg/L FEU Test 10/15/24 10:30 10/15/24 07:29 10/13/24 19:42 10/13/24 18:37 Range/Units Urine Color Colorless Yellow Urine Clarity Clear Clear Urine pH 8.0 5.0-9.0 Urine Specific [place] 1.009 1.001-1.035 Urine Protein 2+ H Negative Urine Ketones Negative Negative Urine Blood Trace H Negative /uL Urine Nitrite Negative Negative Urine Bilirubin Negative Negative Urine Urobilinogen Normal Negative mg/dL Urine Leukocyte Esterase Negative Negative /uL Urine RBC 2 0 - 4 /hpf Urine Microscopic WBC 3 0-5 /HPF Urine Squamous Epithelial Cells Few <5 /hpf Urine Bacteria Few H None Seen /hpf Urine Glucose 3+ H Normal mg/dL Total Bilirubin 0.8 0.2-1.0 mg/dL Aspartate Amino Transferase (AST) 23 <34 U/L Alanine Aminotransferase (ALT) 27 7-40 U/L Alkaline Phosphatase 47 46-116 U/L Total Protein 7.2 5.7-8.2 g/dL Albumin 4.6 3.2-4.8 g/dL Troponin I High Sensitivity 13 </=34 ng/L B-Type Natriuretic Peptide 292.99 0-100 pg/mL Imaging: Assessment: Persistent nausea and vomiting ESRD on dialysis History of colitis Plan: -discussed with Dr. Calle Monitor lab MiraLax Continue Zofran and Protonix Hold blood thinners Possible EGD to be considered if symptoms persist, otherwise outpatient GI follow-up recommended for procedures as needed Discussed plan with patient and family at bedside and RN Thank you for this consult Date of Service: Oct 17, 2024 Billing Provider: BUCK KNIGHT Common Visit Codes: CONSULT ONLY Consultation Codes: [id number] CONSULT <60MIN BUCK KNIGHT Oct 17, 2024 13:28
[2024-10-17] MEDS: POLYETHYLENE GLYCOL 17 GM PWDR PO ONE (13:43)
[2024-10-17] MEDS: POTASSIUM CHLORIDE 40 MEQ, LIDOCAINE 1% (LOCAL ANESTH.) 4 ML in SODIUM CHL 0.9% 250 ML IV ONE (14:30)
--- NOTE | 2024-10-17 16:40 | DVHPN2 ---
Progress Note - Dictate Date Seen: Oct 17, 2024 Medical Necessity Reason Pt with a Central, PICC or Fol: No Subjective no new symptoms vital signs Vital Sign Date Time Temp Pulse Resp B/P (MAP) Pulse Ox O2 Delivery O2 Flow Rate FiO2 10/17/24 13:00 97.7 75 19 144/54 (84) 90 97.7 10/17/24 08:09 Nasal Cannula* 2 28 Total Intake and Output 10/16/24 10/16/24 10/17/24 15:00 23:00 07:00 Intake Total 50 ml 480 ml 300 ml Output Total 600 ml Balance 50 ml -120 ml 300 ml medications Current Medications Medications Dose Ordered Sig/Gregory Route Start Time Stop Time Status Last Admin Dose Admin Multivit/Ca Carb/ B Cmplx/FA/Prenat 1 tab DAILY PO 10/14/24 10:00 10/17/24 09:02 1 TAB Albuterol 2.5 mg Q4HPRN PRN NEB 10/14/24 00:30 Cancel Ipratropium [place] 0.5 mg Q4HPRN PRN NEB 10/14/24 00:30 Cancel Furosemide 40 mg DAILY IV 10/14/24 10:00 10/17/24 09:04 40 MG Atorvastatin Calcium 10 mg HS PO 10/14/24 22:00 10/16/24 22:24 10 MG Levothyroxine Sodium 88 mcg QAM@0600 PO 10/14/24 06:00 10/17/24 06:36 88 MCG Sodium Chloride 10 ml Q8HR IV 10/14/24 06:00 10/17/24 13:39 10 ML Ondansetron HCl 4 mg Q4HP PRN IV 10/14/24 00:30 10/17/24 06:09 4 MG Docusate Sodium 100 mg BIDPRN PRN PO 10/14/24 00:30 Acetaminophen 650 mg Q6HP PRN PO 10/14/24 00:30 10/17/24 12:35 650 MG Nitroglycerin 0.4 mg Q5MINP PRN SL 10/14/24 00:30 Morphine Sulfate 2 mg Q30M PRN IV 10/14/24 00:30 10/15/24 06:29 2 MG Clopidogrel Bisulfate 75 mg DAILY PO 10/14/24 10:00 10/17/24 09:03 75 MG Ceftriaxone Sodium 50 ml @ 100 mls/hr DAILY@09 IV 10/15/24 09:00 10/17/24 09:04 100 MLS/HR Acetaminophen/ Hydrocodone Bitart 1 tab Q6HP PRN PO 10/15/24 10:30 10/17/24 00:21 1 TAB Nifedipine 60 mg DAILY PO 10/16/24 10:00 10/17/24 09:03 60 MG Gabapentin 300 mg TID PO 10/15/24 14:00 10/16/24 15:58 300 MG Aspirin 81 mg DAILY PO 10/16/24 10:00 10/17/24 09:02 81 MG Lactulose 15 ml TID PO 10/15/24 22:00 10/17/24 13:44 15 ML Carvedilol 25 mg Q12H PO 10/15/24 19:00 10/17/24 06:37 25 MG Prochlorperazine Maleate 10 mg QIDP PRN PO 10/15/24 19:45 Guaifenesin/ Dextromethorphan 10 ml Q4HP PRN PO 10/16/24 07:15 Clonidine HCl 0.1 mg Q6HP PRN PO 10/16/24 09:45 10/17/24 09:17 0.1 MG Ketorolac Tromethamine 15 mg Q8HR IV 10/16/24 14:00 10/21/24 13:59 Hold Insulin Glargine 40 units BID@0700,2200 SC 10/17/24 22:00 Pantoprazole Sodium 40 mg BID IV 10/17/24 22:00 Diagnostic Test (Pha) 1 strip IQ4HR 10/17/24 12:00 10/17/24 12:20 1 STRIP Insulin Human Regular IQ4HR SC 10/17/24 12:00 10/17/24 12:26 3 UNITS Dextrose 50 ml UD PRN IV 10/17/24 11:45 Quetiapine Fumarate 300 mg HS PO 10/17/24 22:00 Hydroxyzine Pamoate 25 mg QPM PO 10/17/24 18:00 objective Gen: NAD HEENT: NC, AT Lungs: crackles lung bases Cardiac: rrr, no murmur Abd: + PD cath, exit site clear Ext: + 1 edema b/l legs Neuro: AAOx3, no focal deficits laboratory and microbiology Laboratory Tests 10/17/24 04:52 10/16/24 05:46 Test 10/17/24 04:52 Range/Units Serum Glucose 260 H 74-106 mg/dL Assessment/Plan ESRD on PD HTN Hypokalemia Chest pain r/o ACS. troponin negative hypothyroidism Anemia of CKD Hyperphosphatemia secondary hyperparathyroidism Obesity Plan: continue peritoneal dialysis. she has brought in her cycler and supplies, and will do it overnight. cardiology consult appreciated supplement KCl Continue Coreg 25 mg PO BID Continue nifedipine ER 60 mg daily Dietary Evaluation Review Comments: Estimated energy absorption from CAPD is 400-900kcal/d. Pt was told to lose weight in order to be on transplant waiting list. Pt has hyperglycemia 2ndary to CAPD, To lose wt, she needs to learn how to increase physical activities and reduce high CHO food. A high protein low CHO diet is recommended. A serum Phos lab value will aid assessing if she needs a dietary phos restriction.. Expected Outcomes/Goals: Gradual wt loss as desired. Plan discussed with: Patient BRUNA MG MD Oct 17, 2024 16:40
[2024-10-17] MEDS: hydrOXYzine 25 MG TAB or CAP PO SCH (18:13)
[2024-10-17] MEDS: QUEtiapine FUMARATE 100 MG TAB PO SCH (22:17)
[2024-10-17] MEDS: PANTOPRAZOLE 40 MG/10 ML VIAL INJ IV SCH (22:18)
[2024-10-17] MEDS: INSULIN LANTUS (GLARGINE) 1 /0.01ml (100units/ml) SC SCH (23:13)
[2024-10-18 05:00] VITALS: BP 108/44; PULSE 62; RESP 20; TEMP 98.7; O2SAT 98
[2024-10-18 06:28] LABS: Basophils # (auto) 0 10 ^3/uL (0-0.2); Basophils % (auto) 0.1 % (0.0-2.0); Eosinophils # (auto) 0.1 10 ^3/uL (0-0.8); Eosinophils % (auto) 0.9 % (0.0-7.0); Hematocrit 26.3 % (36.0-46.0); Lymphocytes # (auto) 0.9 10 ^3/uL (0.4-5.4); Lymphocytes % (auto) 7.2 % (10.0-50.0); Mean Corpuscular Hemoglobin 31.9 pg (28.0-32.0); Mean Corpuscular Hgb Conc. 34.2 g/dL (32.0-36.0); Mean Corpuscular Volume 93.2 fL (80.0-100.0); Monocytes # (auto) 0.9 10 ^3/uL (0-1.3); Monocytes % (auto) 7.4 % (0.0-12.0); Neutrophils # (auto) 10.6 10 ^3/uL (1.6-8.6); Neutrophils % (auto) 84.4 % (37.0-80.0); Platelet Count (auto) 175 10^3/uL (140-450); Red Blood Cells 2.82 10^6/uL (4.0-5.20); Red Cell Distribution Width 14.7 % (11.8-14.3); White Blood Cell 12.5 10^3/uL (4.4-10.8)
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
[2024-10-18 06:52] LABS: Albumin 3.2 g/dL (3.2-4.8); Anion Gap 10 (5-15); BUN/Creatinine Ratio 4.7 (10.0-20.0); Blood Urea Nitrogen 23 mg/dL (9-23); Chloride 100 mmol/L (98-107); Sodium 143 mmol/L (136-145)
[2024-10-18 06:53] LABS: Alanine Aminotransferase 61 U/L (7-40); Alkaline Phosphatase 142 U/L (46-116); Aspartate Aminotransferase 106 U/L (<34); Bilirubin, Total 0.2 mg/dL (0.2-1.0); Calcium 8.6 mg/dL (8.7-10.4); Carbon Dioxide 33 mmol/L (20-31); Glucose 217 mg/dL (74-106); Potassium 2.6 mmol/L (3.5-5.1); Total Protein 5.7 g/dL (5.7-8.2)
--- NOTE | 2024-10-18 06:57 | DVHPN2 ---
Progress Note - Dictate Date Seen: Oct 18, 2024 Has the PT tested + for MRSA If YES, has PT been informed?: No Medical Necessity Reason Pt with a Central, PICC or Fol: No Subjective no new symptoms vital signs Vital Sign Date Time Temp Pulse Resp B/P (MAP) Pulse Ox O2 Delivery O2 Flow Rate FiO2 10/18/24 06:04 59 108/44 10/18/24 05:00 98.7 20 98 98.7 10/17/24 20:00 Room Air* 0 21 Total Intake and Output 10/17/24 10/17/24 10/18/24 15:00 23:00 07:00 Intake Total 50 ml 140 ml 700 ml Balance 50 ml 140 ml 700 ml medications Current Medications Medications Dose Ordered Sig/Gregory Route Start Time Stop Time Status Last Admin Dose Admin Multivit/Ca Carb/ B Cmplx/FA/Prenat 1 tab DAILY PO 10/14/24 10:00 10/17/24 09:02 1 TAB Albuterol 2.5 mg Q4HPRN PRN NEB 10/14/24 00:30 Cancel Ipratropium [place] 0.5 mg Q4HPRN PRN NEB 10/14/24 00:30 Cancel Furosemide 40 mg DAILY IV 10/14/24 10:00 10/17/24 09:04 40 MG Atorvastatin Calcium 10 mg HS PO 10/14/24 22:00 10/17/24 22:17 10 MG Levothyroxine Sodium 88 mcg QAM@0600 PO 10/14/24 06:00 10/18/24 06:04 88 MCG Sodium Chloride 10 ml Q8HR IV 10/14/24 06:00 10/18/24 06:03 10 ML Ondansetron HCl 4 mg Q4HP PRN IV 10/14/24 00:30 10/17/24 19:42 4 MG Docusate Sodium 100 mg BIDPRN PRN PO 10/14/24 00:30 Acetaminophen 650 mg Q6HP PRN PO 10/14/24 00:30 10/17/24 12:35 650 MG Nitroglycerin 0.4 mg Q5MINP PRN SL 10/14/24 00:30 Morphine Sulfate 2 mg Q30M PRN IV 10/14/24 00:30 10/15/24 06:29 2 MG Clopidogrel Bisulfate 75 mg DAILY PO 10/14/24 10:00 10/17/24 09:03 75 MG Ceftriaxone Sodium 50 ml @ 100 mls/hr DAILY@09 IV 10/15/24 09:00 10/17/24 09:04 100 MLS/HR Acetaminophen/ Hydrocodone Bitart 1 tab Q6HP PRN PO 10/15/24 10:30 10/17/24 19:58 1 TAB Nifedipine 60 mg DAILY PO 10/16/24 10:00 10/17/24 09:03 60 MG Gabapentin 300 mg TID PO 10/15/24 14:00 10/16/24 15:58 300 MG Aspirin 81 mg DAILY PO 10/16/24 10:00 10/17/24 09:02 81 MG Lactulose 15 ml TID PO 10/15/24 22:00 10/18/24 06:03 15 ML Carvedilol 25 mg Q12H PO 10/15/24 19:00 10/17/24 18:13 25 MG Prochlorperazine Maleate 10 mg QIDP PRN PO 10/15/24 19:45 Guaifenesin/ Dextromethorphan 10 ml Q4HP PRN PO 10/16/24 07:15 Clonidine HCl 0.1 mg Q6HP PRN PO 10/16/24 09:45 10/17/24 09:17 0.1 MG Ketorolac Tromethamine 15 mg Q8HR IV 10/16/24 14:00 10/21/24 13:59 Hold Insulin Glargine 40 units BID@0700,2200 SC 10/17/24 22:00 10/18/24 06:28 40 UNITS Pantoprazole Sodium 40 mg BID IV 10/17/24 22:00 10/17/24 22:18 40 MG Diagnostic Test (Pha) 1 strip IQ4HR 10/17/24 12:00 10/18/24 04:20 1 STRIP Insulin Human Regular IQ4HR SC 10/17/24 12:00 10/18/24 04:21 9 UNITS Dextrose 50 ml UD PRN IV 10/17/24 11:45 Quetiapine Fumarate 300 mg HS PO 10/17/24 22:00 10/17/24 22:17 300 MG Hydroxyzine Pamoate 25 mg QPM PO 10/17/24 18:00 10/17/24 18:13 25 MG objective Gen: NAD HEENT: NC, AT Lungs: crackles lung bases Cardiac: rrr, no murmur Abd: + PD cath, exit site clear Ext: + 1 edema b/l legs Neuro: AAOx3, no focal deficits laboratory and microbiology Laboratory Tests 10/18/24 04:58 Test 10/18/24 04:58 Range/Units Serum Glucose 217 H 74-106 mg/dL Assessment/Plan ESRD on PD HTN Hypokalemia Chest pain r/o ACS. troponin negative hypothyroidism Anemia of CKD Hyperphosphatemia secondary hyperparathyroidism Obesity Plan: continue peritoneal dialysis. she has brought in her cycler and supplies, and will do it overnight. cardiology consult appreciated supplement KCl Continue Coreg 25 mg PO BID Continue nifedipine ER 60 mg daily Dietary Evaluation Review Comments: Estimated energy absorption from CAPD is 400-900kcal/d. Pt was told to lose weight in order to be on transplant waiting list. Pt has hyperglycemia 2ndary to CAPD, To lose wt, she needs to learn how to increase physical activities and reduce high CHO food. A high protein low CHO diet is recommended. A serum Phos lab value will aid assessing if she needs a dietary phos restriction.. Expected Outcomes/Goals: Gradual wt loss as desired. Plan discussed with: Patient BRUNA MG MD Oct 18, 2024 06:57
[2024-10-18 08:30] VITALS: PULSE 63
[2024-10-18 09:00] VITALS: BP_SYST 115; BP_SYST 152; BP_DIAS 49; BP_DIAS 63; PULSE 69; PULSE 72; RESP 18; RESP 20; TEMP 98.1; O2SAT 91; O2SAT 95
[2024-10-18] MEDS ORDERED: hydrOXYzine 25 MG TAB or CAP PO PRN (09:15)
--- NOTE | 2024-10-18 09:17 | DVHPN2 ---
Progress Note Date Seen: Oct 18, 2024 Has the PT tested + for MRSA If YES, has PT been informed?: No Medical Necessity Reason Pt with a Central, PICC or Fol: No Subjective Patient reports: No new complaints Review of Systems: HEENT:Normal, CVS:Normal, RESPIRATORY:Normal, GI:Normal, :Normal, MSK:Normal, NEURO:Normal Objective vital signs Vital Sign Date Time Temp Pulse Resp B/P (MAP) Pulse Ox O2 Delivery O2 Flow Rate FiO2 10/18/24 07:37 Nasal Cannula* 2 28 10/18/24 06:04 59 108/44 10/18/24 05:00 98.7 20 98 98.7 Total Intake and Output 10/17/24 10/17/24 10/18/24 15:00 23:00 07:00 Intake Total 50 ml 140 ml 700 ml Balance 50 ml 140 ml 700 ml medications Current Medications Medications Dose Ordered Sig/Gregory Route Start Time Stop Time Status Last Admin Dose Admin Multivit/Ca Carb/ B Cmplx/FA/Prenat 1 tab DAILY PO 10/14/24 10:00 10/17/24 09:02 1 TAB Albuterol 2.5 mg Q4HPRN PRN NEB 10/14/24 00:30 Cancel Ipratropium [place] 0.5 mg Q4HPRN PRN NEB 10/14/24 00:30 Cancel Furosemide 40 mg DAILY IV 10/14/24 10:00 10/17/24 09:04 40 MG Atorvastatin Calcium 10 mg HS PO 10/14/24 22:00 10/17/24 22:17 10 MG Levothyroxine Sodium 88 mcg QAM@0600 PO 10/14/24 06:00 10/18/24 06:04 88 MCG Sodium Chloride 10 ml Q8HR IV 10/14/24 06:00 10/18/24 06:03 10 ML Ondansetron HCl 4 mg Q4HP PRN IV 10/14/24 00:30 10/17/24 19:42 4 MG Docusate Sodium 100 mg BIDPRN PRN PO 10/14/24 00:30 Acetaminophen 650 mg Q6HP PRN PO 10/14/24 00:30 10/17/24 12:35 650 MG Nitroglycerin 0.4 mg Q5MINP PRN SL 10/14/24 00:30 Morphine Sulfate 2 mg Q30M PRN IV 10/14/24 00:30 10/15/24 06:29 2 MG Clopidogrel Bisulfate 75 mg DAILY PO 10/14/24 10:00 10/17/24 09:03 75 MG Ceftriaxone Sodium 50 ml @ 100 mls/hr DAILY@09 IV 10/15/24 09:00 10/17/24 09:04 100 MLS/HR Acetaminophen/ Hydrocodone Bitart 1 tab Q6HP PRN PO 10/15/24 10:30 10/17/24 19:58 1 TAB Nifedipine 60 mg DAILY PO 10/16/24 10:00 10/17/24 09:03 60 MG Gabapentin 300 mg TID PO 10/15/24 14:00 10/16/24 15:58 300 MG Aspirin 81 mg DAILY PO 10/16/24 10:00 10/17/24 09:02 81 MG Lactulose 15 ml TID PO 10/15/24 22:00 10/18/24 06:03 15 ML Carvedilol 25 mg Q12H PO 10/15/24 19:00 10/17/24 18:13 25 MG Prochlorperazine Maleate 10 mg QIDP PRN PO 10/15/24 19:45 Guaifenesin/ Dextromethorphan 10 ml Q4HP PRN PO 10/16/24 07:15 Clonidine HCl 0.1 mg Q6HP PRN PO 10/16/24 09:45 10/17/24 09:17 0.1 MG Ketorolac Tromethamine 15 mg Q8HR IV 10/16/24 14:00 10/21/24 13:59 Hold Insulin Glargine 40 units BID@0700,2200 SC 10/17/24 22:00 10/18/24 06:28 40 UNITS Pantoprazole Sodium 40 mg BID IV 10/17/24 22:00 10/17/24 22:18 40 MG Diagnostic Test (Pha) 1 strip IQ4HR 10/17/24 12:00 10/18/24 08:11 1 STRIP Insulin Human Regular IQ4HR SC 10/17/24 12:00 10/18/24 04:21 9 UNITS Dextrose 50 ml UD PRN IV 10/17/24 11:45 Quetiapine Fumarate 300 mg HS PO 10/17/24 22:00 10/17/24 22:17 300 MG Hydroxyzine Pamoate 25 mg QPM PO 10/17/24 18:00 10/17/24 18:13 25 MG Examination: GENERAL:Normal, HEENT:Normal, NECK:Normal, LUNGS:Normal, CVS:Normal, ABDOMEN:Normal, MSK:Normal, SKIN:Normal, NEURO:Normal, :Normal laboratory and microbiology Laboratory Tests 10/18/24 04:58 Test 10/18/24 04:58 Range/Units Serum Glucose 217 H 74-106 mg/dL Problem List/Assessment/Plan Problem List/Assessment/Plan #1 chest pain ?cad ? musculoskeletal: iv toradol #2 acute on chronic systolic/diastolic heart failure: echo, lasix iv #3 htn: cont meds #4 dm: lantus, ssi #5 esrd: on pd #6 morbid obesity #7 hypothyroidism: cont meds, tsh #8 hypokalemia: replace #9 persistent vomiting: ?egd #10 anemia: ppi, hold asa advance care planning- full code- time spent 19 mins Plan discussed with: Patient My Orders My Orders Orders - IWONA LAI MD Procedure Category Date Status Time Insulin Lantus PHA 10/17/24 In Process (Glargine) (Lantus) 22:00 Pantoprazole PHA 10/17/24 In Process (Protonix) 22:00 Glucose Blood PHA 10/17/24 In Process (Accu-Chek Comfort 12:00 Insulin R (Human) PHA 10/17/24 In Process (Insulin R) 12:00 Dextrose 50% Syringe PHA 10/17/24 In Process 11:45 Quetiapine Fumarate PHA 10/17/24 In Process Tablet (Seroquel Tab 22:00 Hydroxyzine Oral PHA 10/17/24 In Process (Vistaril Oral) 18:00 Hydroxyzine Oral PHA 10/18/24 Verified (Vistaril Oral) 09:15 Quetiapine Fumarate PHA 10/18/24 Verified Tablet (Seroquel Tab 22:00 Complete Blood Count LAB 10/19/24 Verified 06:00 Comprehensive LAB 10/19/24 Verified Metabolic Panel 06:00 Dietary Evaluation Review Comments: Estimated energy absorption from CAPD is 400-900kcal/d. Pt was told to lose weight in order to be on transplant waiting list. Pt has hyperglycemia 2ndary to CAPD, To lose wt, she needs to learn how to increase physical activities and reduce high CHO food. A high protein low CHO diet is recommended. A serum Phos lab value will aid assessing if she needs a dietary phos restriction.. Expected Outcomes/Goals: Gradual wt loss as desired. Date of Service: Oct 18, 2024 Billing Provider: IWONA LAI MD Common Visit Codes: 49620-[id number] INP/OBS CARE(HIGH) IWONA LAI MD Oct 18, 2024 09:17
[2024-10-18] MEDS: guaiFENesin-DM 100/10mg/5ml SYR PO PRN (12:00)
[2024-10-18 13:00] VITALS: BP 157/71; PULSE 71; RESP 18; TEMP 98; O2SAT 96
[2024-10-18] MEDS: POTASSIUM CHL 20 Meq TABLET PO ONE (15:30)
--- NOTE | 2024-10-18 16:37 | DVHPN2 ---
Progress Note Date Seen: Oct 18, 2024 Resident Creating Document: EBER LOVE RESIDENT Has the PT tested + for MRSA If YES, has PT been informed?: No Medical Necessity Reason Pt with a Central, PICC or Fol: No Subjective Review of Systems Patient was seen today at bedside Reported nausea and vomiting has improved No nausea and vomiting since last night Hypokalemia, replenish Patient has leukocytosis H&H stable Patient was seen by Nephrology, recommended for overnight PD dialysis Objective vital signs Vital Sign Date Time Temp Pulse Resp B/P (MAP) Pulse Ox O2 Delivery O2 Flow Rate FiO2 10/18/24 13:00 98.0 71 18 157/71 (99) 96 98.0 10/18/24 07:37 Nasal Cannula* 2 28 Total Intake and Output 10/17/24 10/17/24 10/18/24 15:00 23:00 07:00 Intake Total 50 ml 140 ml 700 ml Balance 50 ml 140 ml 700 ml medications Current Medications Medications Dose Ordered Sig/Gregory Route Start Time Stop Time Status Last Admin Dose Admin Multivit/Ca Carb/ B Cmplx/FA/Prenat 1 tab DAILY PO 10/14/24 10:00 10/18/24 09:44 1 TAB Albuterol 2.5 mg Q4HPRN PRN NEB 10/14/24 00:30 Cancel Ipratropium [place] 0.5 mg Q4HPRN PRN NEB 10/14/24 00:30 Cancel Furosemide 40 mg DAILY IV 10/14/24 10:00 10/18/24 09:43 40 MG Atorvastatin Calcium 10 mg HS PO 10/14/24 22:00 10/17/24 22:17 10 MG Levothyroxine Sodium 88 mcg QAM@0600 PO 10/14/24 06:00 10/18/24 06:04 88 MCG Sodium Chloride 10 ml Q8HR IV 10/14/24 06:00 10/18/24 14:00 10 ML Ondansetron HCl 4 mg Q4HP PRN IV 10/14/24 00:30 10/17/24 19:42 4 MG Docusate Sodium 100 mg BIDPRN PRN PO 10/14/24 00:30 Acetaminophen 650 mg Q6HP PRN PO 10/14/24 00:30 10/17/24 12:35 650 MG Nitroglycerin 0.4 mg Q5MINP PRN SL 10/14/24 00:30 Morphine Sulfate 2 mg Q30M PRN IV 10/14/24 00:30 10/15/24 06:29 2 MG Clopidogrel Bisulfate 75 mg DAILY PO 10/14/24 10:00 10/18/24 09:44 75 MG Ceftriaxone Sodium 50 ml @ 100 mls/hr DAILY@09 IV 10/15/24 09:00 10/18/24 09:44 100 MLS/HR Acetaminophen/ Hydrocodone Bitart 1 tab Q6HP PRN PO 10/15/24 10:30 10/17/24 19:58 1 TAB Nifedipine 60 mg DAILY PO 10/16/24 10:00 10/18/24 09:44 60 MG Lactulose 15 ml TID PO 10/15/24 22:00 10/18/24 14:00 15 ML Carvedilol 25 mg Q12H PO 10/15/24 19:00 10/17/24 18:13 25 MG Prochlorperazine Maleate 10 mg QIDP PRN PO 10/15/24 19:45 Guaifenesin/ Dextromethorphan 10 ml Q4HP PRN PO 10/16/24 07:15 10/18/24 12:00 10 ML Clonidine HCl 0.1 mg Q6HP PRN PO 10/16/24 09:45 10/17/24 09:17 0.1 MG Ketorolac Tromethamine 15 mg Q8HR IV 10/16/24 14:00 10/21/24 13:59 Hold Insulin Glargine 40 units BID@0700,2200 SC 10/17/24 22:00 10/18/24 06:28 40 UNITS Pantoprazole Sodium 40 mg BID IV 10/17/24 22:00 10/18/24 09:43 40 MG Diagnostic Test (Pha) 1 strip IQ4HR 10/17/24 12:00 10/18/24 15:55 1 STRIP Insulin Human Regular IQ4HR SC 10/17/24 12:00 10/18/24 16:03 3 UNITS Dextrose 50 ml UD PRN IV 10/17/24 11:45 Hydroxyzine Pamoate 25 mg QPM PRN PO 10/18/24 09:15 Quetiapine Fumarate 100 mg HS PO 10/18/24 22:00 laboratory and microbiology Laboratory Tests 10/18/24 04:58 Test 10/18/24 04:58 Range/Units Serum Glucose 217 H 74-106 mg/dL Problem List/Assessment/Plan Problem List/Assessment/Plan Assessment and plan Intractable nausea and vomiting ESRD on PD Hypokalemia History of colitis Reported nausea and vomiting has improved No nausea and vomiting since last night Hypokalemia, replenish Patient has leukocytosis H&H stable Patient was seen by Nephrology, recommended for overnight PD dialysis Plan please keep patient NPO overnight Possible EGD tomorrow Peritoneal dialysis as recommended by Nephrology Continue pantoprazole and antiemetic as prescribed Other treatment as per primary care team Monitor CBC, BMP Plan discussed with Dr. Rea Calle , nursing staff, Total time spent on patient evaluation, chart review, assessment and plan, discussion discussion >35 minutes Plan discussed with: Patient, Other (RN) Dietary Evaluation Review Comments: Estimated energy absorption from CAPD is 400-900kcal/d. Pt was told to lose weight in order to be on transplant waiting list. Pt has hyperglycemia 2ndary to CAPD, To lose wt, she needs to learn how to increase physical activities and reduce high CHO food. A high protein low CHO diet is recommended. A serum Phos lab value will aid assessing if she needs a dietary phos restriction.. Expected Outcomes/Goals: Gradual wt loss as desired. EBER LOVE RESIDENT Oct 18, 2024 16:37
[2024-10-18] MEDS: POTASSIUM CHLORIDE 40 MEQ, LIDOCAINE 1% (LOCAL ANESTH.) 4 ML in SODIUM CHL 0.9% 250 ML IV ONE (17:30)
[2024-10-18 20:00] VITALS: PULSE 72; PULSE 73; RESP 18; O2SAT 94
[2024-10-18 21:00] VITALS: BP 120/53; PULSE 73; RESP 18; TEMP 98.4; O2SAT 94
[2024-10-18] MEDS: QUEtiapine FUMARATE 100 MG TAB PO SCH (21:44)
[2024-10-19] VITALS (8 sets, daily range): BP systolic 121–153; BP diastolic 48–59; PULSE 69–78; RESP 18–20; TEMP 98.1–99.1; O2SAT 91–100
[2024-10-19 06:05] LABS: Basophils # (auto) 0 10 ^3/uL (0-0.2); Basophils % (auto) 0.5 % (0.0-2.0); Eosinophils # (auto) 0.3 10 ^3/uL (0-0.8); Eosinophils % (auto) 3.5 % (0.0-7.0); Hematocrit 28.1 % (36.0-46.0); Hemoglobin 9.8 g/dL (12.2-16.2); Lymphocytes # (auto) 1.8 10 ^3/uL (0.4-5.4); Lymphocytes % (auto) 21.4 % (10.0-50.0); Mean Corpuscular Hemoglobin 32.6 pg (28.0-32.0); Mean Corpuscular Hgb Conc. 34.7 g/dL (32.0-36.0); Mean Corpuscular Volume 93.9 fL (80.0-100.0); Monocytes # (auto) 0.7 10 ^3/uL (0-1.3); Monocytes % (auto) 8.5 % (0.0-12.0); Neutrophils # (auto) 5.7 10 ^3/uL (1.6-8.6); Neutrophils % (auto) 66.1 % (37.0-80.0); Platelet Count (auto) 175 10^3/uL (140-450); Red Blood Cells 2.99 10^6/uL (4.0-5.20); White Blood Cell 8.6 10^3/uL (4.4-10.8)
[2024-10-19 06:26] LABS: Albumin 3.4 g/dL (3.2-4.8); Anion Gap 9 (5-15); BUN/Creatinine Ratio 4.3 (10.0-20.0); Blood Urea Nitrogen 22 mg/dL (9-23); Chloride 101 mmol/L (98-107); Sodium 142 mmol/L (136-145)
[2024-10-19 06:30] LABS: Alanine Aminotransferase 50 U/L (7-40); Alkaline Phosphatase 161 U/L (46-116); Aspartate Aminotransferase 49 U/L (<34); Bilirubin, Total < 0.2 mg/dL (0.2-1.0); Calcium 8.4 mg/dL (8.7-10.4); Carbon Dioxide 32 mmol/L (20-31); Glucose 365 mg/dL (74-106); Potassium 3.1 mmol/L (3.5-5.1)
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
--- NOTE | 2024-10-19 10:55 | DVHPN2 ---
Eyes: No Pain, No Vision change, No Conjunctivae inflammation, No Eyelid inflammation, No Other, No Redness ENT: No Ear pain, No Ear discharge, No Nose pain, No Nose discharge, No Nose congestion, No Mouth pain, No Mouth swelling, No Throat pain, No Throat swelling, No Other Cardiovascular: Chest Pain Respiratory: Shortness of breath Gastrointestinal: No Nausea, No Vomiting, No Abdominal Pain, No Diarrhea, No Constipation, No Melena, No Hematochezia, No Other Genitourinary: No Dysuria, No Frequency, No Incontinence, No Hematuria, No Retention, No Other Musculoskeletal: No other, No neck pain, No shoulder pain, No arm pain, No back pain, No hand pain, No leg pain, No foot pain Skin: No Rash, No Lesions, No Jaundice, No Bruising, No Other Objective Vitals Vital Signs Date Time Temp Pulse Resp B/P (MAP) Pulse Ox O2 Delivery O2 Flow Rate FiO2 10/19/24 09:00 98.4 76 20 131/48 (75) 94 98.4 10/18/24 20:00 Nasal Cannula* 2 28 Intake/Output Intake and Output 10/19/24 07:00 Intake Total 970 ml Balance 970 ml Intake Oral 920 ml IV Total 50 ml # Voids 2 # Bowel Movements 6 Medications Current Medications Medications Dose Ordered Sig/Gregory Route Start Time Stop Time Status Last Admin Dose Admin Multivit/Ca Carb/ B Cmplx/FA/Prenat 1 tab DAILY PO 10/14/24 10:00 10/19/24 08:29 1 TAB Albuterol 2.5 mg Q4HPRN PRN NEB 10/14/24 00:30 Cancel Ipratropium [place] 0.5 mg Q4HPRN PRN NEB 10/14/24 00:30 Cancel Furosemide 40 mg DAILY IV 10/14/24 10:00 10/18/24 09:43 40 MG Atorvastatin Calcium 10 mg HS PO 10/14/24 22:00 10/18/24 21:44 10 MG Levothyroxine Sodium 88 mcg QAM@0600 PO 10/14/24 06:00 10/19/24 06:01 88 MCG Sodium Chloride 10 ml Q8HR IV 10/14/24 06:00 10/19/24 06:03 10 ML Ondansetron HCl 4 mg Q4HP PRN IV 10/14/24 00:30 10/17/24 19:42 4 MG Docusate Sodium 100 mg BIDPRN PRN PO 10/14/24 00:30 Acetaminophen 650 mg Q6HP PRN PO 10/14/24 00:30 10/17/24 12:35 650 MG Nitroglycerin 0.4 mg Q5MINP PRN SL 10/14/24 00:30 Morphine Sulfate 2 mg Q30M PRN IV 10/14/24 00:30 10/15/24 06:29 2 MG Clopidogrel Bisulfate 75 mg DAILY PO 10/14/24 10:00 10/19/24 08:28 75 MG Ceftriaxone Sodium 50 ml @ 100 mls/hr DAILY@09 IV 10/15/24 09:00 10/19/24 08:27 100 MLS/HR Acetaminophen/ Hydrocodone Bitart 1 tab Q6HP PRN PO 10/15/24 10:30 10/17/24 19:58 1 TAB Nifedipine 60 mg DAILY PO 10/16/24 10:00 10/19/24 08:30 60 MG Lactulose 15 ml TID PO 10/15/24 22:00 10/18/24 21:46 15 ML Carvedilol 25 mg Q12H PO 10/15/24 19:00 10/19/24 06:37 25 MG Prochlorperazine Maleate 10 mg QIDP PRN PO 10/15/24 19:45 Guaifenesin/ Dextromethorphan 10 ml Q4HP PRN PO 10/16/24 07:15 10/18/24 12:00 10 ML Clonidine HCl 0.1 mg Q6HP PRN PO 10/16/24 09:45 10/17/24 09:17 0.1 MG Ketorolac Tromethamine 15 mg Q8HR IV 10/16/24 14:00 10/21/24 13:59 Hold Insulin Glargine 40 units BID@0700,2200 SC 10/17/24 22:00 10/19/24 06:35 40 UNITS Pantoprazole Sodium 40 mg BID IV 10/17/24 22:00 10/19/24 08:28 40 MG Diagnostic Test (Pha) 1 strip IQ4HR 10/17/24 12:00 10/19/24 08:32 1 STRIP Insulin Human Regular IQ4HR SC 10/17/24 12:00 10/19/24 08:31 6 UNITS Dextrose 50 ml UD PRN IV 10/17/24 11:45 Hydroxyzine Pamoate 25 mg QPM PRN PO 10/18/24 09:15 Quetiapine Fumarate 100 mg HS PO 10/18/24 22:00 10/18/24 21:44 100 MG Laboratory Results Laboratory Tests 10/19/24 05:18 Chemistry Test 10/19/24 05:18 Albumin 3.4 g/dL (3.2-4.8) Calcium Level 8.4 mg/dL (8.7-10.4) L Total Protein 6.0 g/dL (5.7-8.2) LFT Test 10/19/24 05:18 Alanine Aminotransferase (ALT) 50 U/L (7-40) H Alkaline Phosphatase 161 U/L (46-116) H Aspartate Amino Transferase (AST) 49 U/L (<34) H Total Bilirubin < 0.2 mg/dL (0.2-1.0) L Urinalysis Test 10/15/24 10:30 Urine Color Colorless (Yellow) Urine Clarity Clear (Clear) Urine pH 8.0 (5.0-9.0) Urine Specific [place] 1.009 (1.001-1.035) Urine Protein 2+ (Negative) H Urine Ketones Negative (Negative) Urine Blood Trace /uL (Negative) H Urine Nitrite Negative (Negative) Urine Bilirubin Negative (Negative) Urine Urobilinogen Normal mg/dL (Negative) Urine Leukocyte Esterase Negative /uL (Negative) Urine RBC 2 /hpf (0 - 4) Urine Microscopic WBC 3 /HPF (0-5) Urine Squamous Epithelial Cells Few /hpf (<5) Urine Bacteria Few /hpf (None Seen) H Urine Glucose 3+ mg/dL (Normal) H YADY MOSS MD Oct 19, 2024 10:55
[2024-10-19] MEDS ORDERED: GLYCOPYRROLATE 0.2 MG/ML 1ML VIAL ONE (11:37)
[2024-10-19] MEDS ORDERED: fentaNYL CITRATE 100 MCG/2 ML VL ONE (11:37)
[2024-10-19] MEDS ORDERED: PROPOFOL 10 MG/ML 20 ML IV ONE (11:37)
[2024-10-19] MEDS ORDERED: ONDANSETRON HCL 4 MG/2 ML VIAL ONE (11:37)
[2024-10-19] MEDS ORDERED: LIDOCAINE 2% (LOCAL ANESTH.) PF 5ml SDV ONE (11:37)
[2024-10-19] MEDS ORDERED: HYDROmorphone HCL 2 MG/ML VL/or syr IV PRN (12:00)
--- NOTE | 2024-10-19 13:17 | DVHOP2 ---
Operative Report DATE OF OPERATION: 10/19/24 PROCEDURE: Upper Endoscopy PREOPERATIVE INDICATION: The patient is a 59 -year-old female undergoing endoscopy for symptoms of recurrent nausea vomiting POSTOPERATIVE DIAGNOSES: 1. Mild antral gastritis PROCEDURE PERFORMED BY: [facility] NURSE: Supriya SCOPE: Olympus videoendoscope. ASA CLASS: 3. PREOPERATIVE MEDICATIONS: Mac sedation, Dr. Ferreira PROCEDURE IN DETAIL: After obtaining an informed consent, the patient was placed on left lateral decubitus position. The patient was then sedated with the above medications. A bite block was placed between her teeth. The endoscope was then passed through the oropharynx, into the esophagus, and through the stomach and pylorus up to the second and third part of the duodenum. The endoscope was then withdrawn. The 2nd and 3rd part of the duodenal in the duodenal bulb were normal. The pre- pyloric area and antrum showed mild gastritis On retroflexion the fundus cardia and angularis were normal. The endoscope was then withdrawn into the distal esophagus She had a slightly irregular squamocolumnar junction but no significant erosive esophagitis The remaining distal and proximal esophagus and oropharynx were unremarkable The patient tolerated the procedure well without difficulty. COMPLICATIONS : None SPECIMENS: No biopsies was obtained as the patient was on Plavix and took a dose this morning DISPOSITION: Transfer back to the floor Stable PLAN: 1. Await for biopsy result 2. Will place pt on Protonix 40 mg po daily 3. Carafate 1 g p.o. twice a day 4. DC aspirin NSAIDs smoking alcohol 5. Resume renal diet as tolerated PAU CALLE MD Oct 19, 2024 13:17
[2024-10-19] MEDS: POTASSIUM CHL 20MEQ/100ML 100 ML IV ONE (13:33)
[2024-10-19] MEDS: ACCU-CHEK COMFORT CURVE STRIP VI ONE (13:34)
--- NOTE | 2024-10-19 14:10 | DVHPN2 ---
Progress Note - Dictate Date Seen: Oct 19, 2024 Has the PT tested + for MRSA If YES, has PT been informed?: No Medical Necessity Reason Pt with a Central, PICC or Fol: No Subjective no new symptoms vital signs Vital Sign Date Time Temp Pulse Resp B/P (MAP) Pulse Ox O2 Delivery O2 Flow Rate FiO2 10/19/24 12:23 Room Air 2.0 95 10/19/24 12:20 68 13 144/56 (85) 95 10/19/24 11:52 98.5 98.5 Total Intake and Output 10/18/24 10/18/24 10/19/24 15:00 23:00 07:00 Intake Total 50 ml 500 ml 420 ml Balance 50 ml 500 ml 420 ml medications Current Medications Medications Dose Ordered Sig/Gregory Route Start Time Stop Time Status Last Admin Dose Admin Multivit/Ca Carb/ B Cmplx/FA/Prenat 1 tab DAILY PO 10/14/24 10:00 10/19/24 08:29 1 TAB Albuterol 2.5 mg Q4HPRN PRN NEB 10/14/24 00:30 Cancel Ipratropium [place] 0.5 mg Q4HPRN PRN NEB 10/14/24 00:30 Cancel Furosemide 40 mg DAILY IV 10/14/24 10:00 10/18/24 09:43 40 MG Atorvastatin Calcium 10 mg HS PO 10/14/24 22:00 10/18/24 21:44 10 MG Levothyroxine Sodium 88 mcg QAM@0600 PO 10/14/24 06:00 10/19/24 06:01 88 MCG Sodium Chloride 10 ml Q8HR IV 10/14/24 06:00 10/19/24 13:34 10 ML Ondansetron HCl 4 mg Q4HP PRN IV 10/14/24 00:30 10/17/24 19:42 4 MG Docusate Sodium 100 mg BIDPRN PRN PO 10/14/24 00:30 Acetaminophen 650 mg Q6HP PRN PO 10/14/24 00:30 10/17/24 12:35 650 MG Nitroglycerin 0.4 mg Q5MINP PRN SL 10/14/24 00:30 Morphine Sulfate 2 mg Q30M PRN IV 10/14/24 00:30 10/15/24 06:29 2 MG Clopidogrel Bisulfate 75 mg DAILY PO 10/14/24 10:00 10/19/24 08:28 75 MG Ceftriaxone Sodium 50 ml @ 100 mls/hr DAILY@09 IV 10/15/24 09:00 10/19/24 08:27 100 MLS/HR Acetaminophen/ Hydrocodone Bitart 1 tab Q6HP PRN PO 10/15/24 10:30 10/17/24 19:58 1 TAB Nifedipine 60 mg DAILY PO 10/16/24 10:00 10/19/24 08:30 60 MG Lactulose 15 ml TID PO 10/15/24 22:00 10/18/24 21:46 15 ML Carvedilol 25 mg Q12H PO 10/15/24 19:00 10/19/24 06:37 25 MG Prochlorperazine Maleate 10 mg QIDP PRN PO 10/15/24 19:45 Guaifenesin/ Dextromethorphan 10 ml Q4HP PRN PO 10/16/24 07:15 10/18/24 12:00 10 ML Clonidine HCl 0.1 mg Q6HP PRN PO 10/16/24 09:45 10/17/24 09:17 0.1 MG Ketorolac Tromethamine 15 mg Q8HR IV 10/16/24 14:00 10/21/24 13:59 Hold Insulin Glargine 40 units BID@0700,2200 SC 10/17/24 22:00 10/19/24 06:35 40 UNITS Pantoprazole Sodium 40 mg BID IV 10/17/24 22:00 10/19/24 08:28 40 MG Diagnostic Test (Pha) 1 strip IQ4HR 10/17/24 12:00 10/19/24 12:00 1 STRIP Insulin Human Regular IQ4HR SC 10/17/24 12:00 10/19/24 08:31 6 UNITS Dextrose 50 ml UD PRN IV 10/17/24 11:45 Hydroxyzine Pamoate 25 mg QPM PRN PO 10/18/24 09:15 Quetiapine Fumarate 100 mg HS PO 10/18/24 22:00 10/18/24 21:44 100 MG Sucralfate 1 gm BID@0600,2200 PO 10/19/24 22:00 objective Gen: NAD HEENT: NC, AT Lungs: crackles lung bases Cardiac: rrr, no murmur Abd: + PD cath, exit site clear Ext: + 1 edema b/l legs Neuro: AAOx3, no focal deficits laboratory and microbiology Laboratory Tests 10/19/24 05:18 Test 10/19/24 05:18 Range/Units Serum Glucose 365 H 74-106 mg/dL Assessment/Plan ESRD on PD HTN Hypokalemia Chest pain r/o ACS. troponin negative hypothyroidism Anemia of CKD Hyperphosphatemia secondary hyperparathyroidism Obesity Plan: continue peritoneal dialysis. she has brought in her cycler and supplies, and will do it overnight. cardiology consult appreciated supplement KCl avoid low K diet Continue Coreg 25 mg PO BID Continue nifedipine ER 60 mg daily Dietary Evaluation Review Comments: Estimated energy absorption from CAPD is 400-900kcal/d. Pt was told to lose weight in order to be on transplant waiting list. Pt has hyperglycemia 2ndary to CAPD, To lose wt, she needs to learn how to increase physical activities and reduce high CHO food. A high protein low CHO diet is recommended. A serum Phos lab value will aid assessing if she needs a dietary phos restriction.. Expected Outcomes/Goals: Gradual wt loss as desired. Plan discussed with: Patient BRUNA MG MD Oct 19, 2024 14:10
--- NOTE | 2024-10-19 20:08 | DVH ---
INDICATION: elevated liver tests TECHNIQUE: Multiple real-time sonographic images were obtained of the right upper quadrant. COMPARISON: None FINDINGS: The liver is increased increased in echogenicity and measures 18.4 cm. Portal vein is vigil nt with proper direction flow. There is no intrahepatic or extrahepatic ductal dilatation. The common duct measures 0.4 cm. Call bladder surgically absent. The right kidney measures 9.9 cm. There is a thin renal cortex. The pancreas is not well visualized due to overlying bowel gas. IMPRESSION: 1. Mild fatty liver with mild hepatomegaly 2. Status post cholecystectomy
[2024-10-19] MEDS: SUCRALFATE 1 GM/10 ML ORAL SUSP PO SCH (21:35)
[2024-10-20] VITALS (8 sets, daily range): BP systolic 128–187; BP diastolic 52–73; PULSE 39–80; RESP 16–18; TEMP 97.2–98.6; O2SAT 91–98
[2024-10-20 07:00] LABS: Alanine Aminotransferase 39 U/L (7-40); Albumin 3.5 g/dL (3.2-4.8); Aspartate Aminotransferase 29 U/L (<34); Total Protein 6.3 g/dL (5.7-8.2)
[2024-10-20 07:03] LABS: Alkaline Phosphatase 159 U/L (46-116); Bilirubin, Total 0.2 mg/dL (0.2-1.0)
[2024-10-20 07:28] LABS: Bilirubin, Direct < 0.1 mg/dL (<0.3)
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
--- NOTE | 2024-10-20 12:08 | DVHPN2 ---
Progress Note Date Seen: Oct 20, 2024 Resident Creating Document: EBER LOVE RESIDENT Has the PT tested + for MRSA If YES, has PT been informed?: No Medical Necessity Reason Pt with a Central, PICC or Fol: No Subjective Review of Systems Patient is seen today at bedside EGD yesterday revealed mild gastritis Denied any nausea or vomiting Patient had peritoneal dialysis overnight H&H stable Leukocytosis resolved Objective vital signs Vital Sign Date Time Temp Pulse Resp B/P (MAP) Pulse Ox O2 Delivery O2 Flow Rate FiO2 10/20/24 11:08 107/69 10/20/24 09:00 97.7 77 16 98 97.7 10/19/24 20:00 Room Air* 0 21 Total Intake and Output 10/19/24 10/19/24 10/20/24 15:00 23:00 07:00 Intake Total 150 ml 1500 ml 775 ml Output Total 1100 ml Balance 150 ml 400 ml 775 ml medications Current Medications Medications Dose Ordered Sig/Gregory Route Start Time Stop Time Status Last Admin Dose Admin Multivit/Ca Carb/ B Cmplx/FA/Prenat 1 tab DAILY PO 10/14/24 10:00 10/20/24 11:08 1 TAB Albuterol 2.5 mg Q4HPRN PRN NEB 10/14/24 00:30 Cancel Ipratropium [place] 0.5 mg Q4HPRN PRN NEB 10/14/24 00:30 Cancel Furosemide 40 mg DAILY IV 10/14/24 10:00 10/20/24 11:08 40 MG Atorvastatin Calcium 10 mg HS PO 10/14/24 22:00 10/19/24 21:35 10 MG Levothyroxine Sodium 88 mcg QAM@0600 PO 10/14/24 06:00 10/20/24 05:34 88 MCG Sodium Chloride 10 ml Q8HR IV 10/14/24 06:00 10/20/24 05:34 10 ML Ondansetron HCl 4 mg Q4HP PRN IV 10/14/24 00:30 10/17/24 19:42 4 MG Docusate Sodium 100 mg BIDPRN PRN PO 10/14/24 00:30 Acetaminophen 650 mg Q6HP PRN PO 10/14/24 00:30 10/17/24 12:35 650 MG Nitroglycerin 0.4 mg Q5MINP PRN SL 10/14/24 00:30 Morphine Sulfate 2 mg Q30M PRN IV 10/14/24 00:30 10/15/24 06:29 2 MG Clopidogrel Bisulfate 75 mg DAILY PO 10/14/24 10:00 10/20/24 11:08 75 MG Ceftriaxone Sodium 50 ml @ 100 mls/hr DAILY@09 IV 10/15/24 09:00 10/20/24 11:07 100 MLS/HR Acetaminophen/ Hydrocodone Bitart 1 tab Q6HP PRN PO 10/15/24 10:30 10/17/24 19:58 1 TAB Nifedipine 60 mg DAILY PO 10/16/24 10:00 10/20/24 11:08 60 MG Carvedilol 25 mg Q12H PO 10/15/24 19:00 10/20/24 06:22 25 MG Prochlorperazine Maleate 10 mg QIDP PRN PO 10/15/24 19:45 Guaifenesin/ Dextromethorphan 10 ml Q4HP PRN PO 10/16/24 07:15 10/18/24 12:00 10 ML Clonidine HCl 0.1 mg Q6HP PRN PO 10/16/24 09:45 10/17/24 09:17 0.1 MG Ketorolac Tromethamine 15 mg Q8HR IV 10/16/24 14:00 10/21/24 13:59 Hold Insulin Glargine 40 units BID@0700,2200 SC 10/17/24 22:00 10/20/24 06:20 40 UNITS Pantoprazole Sodium 40 mg BID IV 10/17/24 22:00 10/20/24 11:07 40 MG Diagnostic Test (Pha) 1 strip IQ4HR 10/17/24 12:00 10/20/24 08:19 1 STRIP Insulin Human Regular IQ4HR SC 10/17/24 12:00 10/20/24 03:44 9 UNITS Dextrose 50 ml UD PRN IV 10/17/24 11:45 Hydroxyzine Pamoate 25 mg QPM PRN PO 10/18/24 09:15 Quetiapine Fumarate 100 mg HS PO 10/18/24 22:00 10/19/24 21:35 100 MG Sucralfate 1 gm BID@0600,2200 PO 10/19/24 22:00 10/20/24 05:34 1 GM laboratory and microbiology Laboratory Tests 10/19/24 05:18 Test 10/19/24 05:18 Range/Units Serum Glucose 365 H 74-106 mg/dL Problem List/Assessment/Plan Problem List/Assessment/Plan Assessment and plan Intractable nausea and vomiting ESRD on PD Hypokalemia History of colitis events EGD yesterday revealed mild gastritis Denied any nausea or vomiting Patient had peritoneal dialysis overnight H&H stable Leukocytosis resolved Plan Peritoneal dialysis as recommended by Nephrology Continue pantoprazole and antiemetic as prescribed Other treatment as per primary care team Monitor CBC, BMP Plan discussed with Dr. Rea Calle , nursing staff, Total time spent on patient evaluation, chart review, assessment and plan, discussion discussion >35 minutes Plan discussed with: Patient, Other (RN) Dietary Evaluation Review Comments: Estimated energy absorption from CAPD is 400-900kcal/d. Pt was told to lose weight in order to be on transplant waiting list. Pt has hyperglycemia 2ndary to CAPD, To lose wt, she needs to learn how to increase physical activities and reduce high CHO food. A high protein low CHO diet is recommended. A serum Phos lab value will aid assessing if she needs a dietary phos restriction.. Expected Outcomes/Goals: Gradual wt loss as desired. EBER LOVE RESIDENT Oct 20, 2024 12:08
--- NOTE | 2024-10-20 14:59 | DVHPN2 ---
Progress Note - Dictate Date Seen: Oct 20, 2024 Has the PT tested + for MRSA If YES, has PT been informed?: No Medical Necessity Reason Pt with a Central, PICC or Fol: No Subjective no new symptoms vital signs Vital Sign Date Time Temp Pulse Resp B/P (MAP) Pulse Ox O2 Delivery O2 Flow Rate FiO2 10/20/24 14:38 174/74 10/20/24 13:00 97.2 70 16 96 97.2 10/20/24 08:00 Room Air* 0 21 Total Intake and Output 10/19/24 10/19/24 10/20/24 15:00 23:00 07:00 Intake Total 150 ml 1500 ml 775 ml Output Total 1100 ml Balance 150 ml 400 ml 775 ml medications Current Medications Medications Dose Ordered Sig/Gregory Route Start Time Stop Time Status Last Admin Dose Admin Multivit/Ca Carb/ B Cmplx/FA/Prenat 1 tab DAILY PO 10/14/24 10:00 10/20/24 11:08 1 TAB Albuterol 2.5 mg Q4HPRN PRN NEB 10/14/24 00:30 Cancel Ipratropium [place] 0.5 mg Q4HPRN PRN NEB 10/14/24 00:30 Cancel Furosemide 40 mg DAILY IV 10/14/24 10:00 10/20/24 11:08 40 MG Atorvastatin Calcium 10 mg HS PO 10/14/24 22:00 10/19/24 21:35 10 MG Levothyroxine Sodium 88 mcg QAM@0600 PO 10/14/24 06:00 10/20/24 05:34 88 MCG Sodium Chloride 10 ml Q8HR IV 10/14/24 06:00 10/20/24 14:23 10 ML Ondansetron HCl 4 mg Q4HP PRN IV 10/14/24 00:30 10/20/24 12:42 4 MG Docusate Sodium 100 mg BIDPRN PRN PO 10/14/24 00:30 Acetaminophen 650 mg Q6HP PRN PO 10/14/24 00:30 10/17/24 12:35 650 MG Nitroglycerin 0.4 mg Q5MINP PRN SL 10/14/24 00:30 Morphine Sulfate 2 mg Q30M PRN IV 10/14/24 00:30 10/15/24 06:29 2 MG Clopidogrel Bisulfate 75 mg DAILY PO 10/14/24 10:00 10/20/24 11:08 75 MG Ceftriaxone Sodium 50 ml @ 100 mls/hr DAILY@09 IV 10/15/24 09:00 10/20/24 11:07 100 MLS/HR Acetaminophen/ Hydrocodone Bitart 1 tab Q6HP PRN PO 10/15/24 10:30 10/17/24 19:58 1 TAB Nifedipine 60 mg DAILY PO 10/16/24 10:00 10/20/24 11:08 60 MG Carvedilol 25 mg Q12H PO 10/15/24 19:00 10/20/24 06:22 25 MG Prochlorperazine Maleate 10 mg QIDP PRN PO 10/15/24 19:45 Guaifenesin/ Dextromethorphan 10 ml Q4HP PRN PO 10/16/24 07:15 10/18/24 12:00 10 ML Clonidine HCl 0.1 mg Q6HP PRN PO 10/16/24 09:45 10/20/24 12:42 0.1 MG Ketorolac Tromethamine 15 mg Q8HR IV 10/16/24 14:00 10/21/24 13:59 Hold Insulin Glargine 40 units BID@0700,2200 SC 10/17/24 22:00 10/20/24 06:20 40 UNITS Pantoprazole Sodium 40 mg BID IV 10/17/24 22:00 10/20/24 11:07 40 MG Diagnostic Test (Pha) 1 strip IQ4HR 10/17/24 12:00 10/20/24 12:00 1 STRIP Insulin Human Regular IQ4HR SC 10/17/24 12:00 10/20/24 03:44 9 UNITS Dextrose 50 ml UD PRN IV 10/17/24 11:45 Hydroxyzine Pamoate 25 mg QPM PRN PO 10/18/24 09:15 Quetiapine Fumarate 100 mg HS PO 10/18/24 22:00 10/19/24 21:35 100 MG Sucralfate 1 gm BID@0600,2200 PO 10/19/24 22:00 10/20/24 05:34 1 GM Amlodipine Besylate 10 mg DAILY PO 10/21/24 10:00 UNV objective Gen: NAD HEENT: NC, AT Lungs: crackles lung bases Cardiac: rrr, no murmur Abd: + PD cath, exit site clear Ext: + 1 edema b/l legs Neuro: AAOx3, no focal deficits laboratory and microbiology Laboratory Tests 10/19/24 05:18 Test 10/19/24 05:18 Range/Units Serum Glucose 365 H 74-106 mg/dL Assessment/Plan ESRD on PD HTN Hypokalemia Chest pain r/o ACS. troponin negative hypothyroidism Gastritis Anemia of CKD Hyperphosphatemia secondary hyperparathyroidism Obesity Plan: continue peritoneal dialysis. she is doing her own dialysis overnight with the her cycler s/p EGD on 10/19/24 which shows mild gastritis cardiology consult appreciated supplement KCl avoid low K diet Continue Coreg 25 mg PO BID Continue nifedipine ER 60 mg daily Dietary Evaluation Review Comments: Estimated energy absorption from CAPD is 400-900kcal/d. Pt was told to lose weight in order to be on transplant waiting list. Pt has hyperglycemia 2ndary to CAPD, To lose wt, she needs to learn how to increase physical activities and reduce high CHO food. A high protein low CHO diet is recommended. A serum Phos lab value will aid assessing if she needs a dietary phos restriction.. Expected Outcomes/Goals: Gradual wt loss as desired. Plan discussed with: Patient BRUNA MG MD Oct 20, 2024 14:59
[2024-10-20] MEDS: PROCHLORPERAZINE MALEATE 10 MG TAB PO PRN (15:15)
[2024-10-20] MEDS: amLODIPine BESYLATE 5 MG TAB PO ONE (15:15)
--- NOTE | 2024-10-20 23:28 | DVHPN2 ---
Eyes: No Pain, No Vision change, No Conjunctivae inflammation, No Eyelid inflammation, No Other, No Redness ENT: No Ear pain, No Ear discharge, No Nose pain, No Nose discharge, No Nose congestion, No Mouth pain, No Mouth swelling, No Throat pain, No Throat swelling, No Other Cardiovascular: Chest Pain Respiratory: Shortness of breath Gastrointestinal: No Nausea, No Vomiting, No Abdominal Pain, No Diarrhea, No Constipation, No Melena, No Hematochezia, No Other Genitourinary: No Dysuria, No Frequency, No Incontinence, No Hematuria, No Retention, No Other Musculoskeletal: No other, No neck pain, No shoulder pain, No arm pain, No back pain, No hand pain, No leg pain, No foot pain Skin: No Rash, No Lesions, No Jaundice, No Bruising, No Other Objective Vitals Vital Signs Date Time Temp Pulse Resp B/P (MAP) Pulse Ox O2 Delivery O2 Flow Rate FiO2 10/20/24 21:00 98.6 70 17 128/63 (84) 97 98.6 10/20/24 08:00 Room Air* 0 21 Intake/Output Intake and Output 10/20/24 07:00 Intake Total 2425 ml Output Total 1100 ml Balance 1325 ml Intake Oral 2175 ml IV Total 250 ml Output Urine Total 1100 ml # Voids 1 Medications Current Medications Medications Dose Ordered Sig/Gregory Route Start Time Stop Time Status Last Admin Dose Admin Multivit/Ca Carb/ B Cmplx/FA/Prenat 1 tab DAILY PO 10/14/24 10:00 10/20/24 11:08 1 TAB Albuterol 2.5 mg Q4HPRN PRN NEB 10/14/24 00:30 Cancel Ipratropium [place] 0.5 mg Q4HPRN PRN NEB 10/14/24 00:30 Cancel Furosemide 40 mg DAILY IV 10/14/24 10:00 10/20/24 11:08 40 MG Atorvastatin Calcium 10 mg HS PO 10/14/24 22:00 10/20/24 22:15 10 MG Levothyroxine Sodium 88 mcg QAM@0600 PO 10/14/24 06:00 10/20/24 05:34 88 MCG Sodium Chloride 10 ml Q8HR IV 10/14/24 06:00 10/20/24 22:27 10 ML Ondansetron HCl 4 mg Q4HP PRN IV 10/14/24 00:30 10/20/24 12:42 4 MG Docusate Sodium 100 mg BIDPRN PRN PO 10/14/24 00:30 Acetaminophen 650 mg Q6HP PRN PO 10/14/24 00:30 10/17/24 12:35 650 MG Nitroglycerin 0.4 mg Q5MINP PRN SL 10/14/24 00:30 Morphine Sulfate 2 mg Q30M PRN IV 10/14/24 00:30 10/15/24 06:29 2 MG Clopidogrel Bisulfate 75 mg DAILY PO 10/14/24 10:00 10/20/24 11:08 75 MG Ceftriaxone Sodium 50 ml @ 100 mls/hr DAILY@09 IV 10/15/24 09:00 10/20/24 11:07 100 MLS/HR Acetaminophen/ Hydrocodone Bitart 1 tab Q6HP PRN PO 10/15/24 10:30 10/17/24 19:58 1 TAB Nifedipine 60 mg DAILY PO 10/16/24 10:00 10/20/24 11:08 60 MG Carvedilol 25 mg Q12H PO 10/15/24 19:00 10/20/24 18:34 25 MG Prochlorperazine Maleate 10 mg QIDP PRN PO 10/15/24 19:45 10/20/24 15:15 10 MG Guaifenesin/ Dextromethorphan 10 ml Q4HP PRN PO 10/16/24 07:15 10/18/24 12:00 10 ML Clonidine HCl 0.1 mg Q6HP PRN PO 10/16/24 09:45 10/20/24 12:42 0.1 MG Ketorolac Tromethamine 15 mg Q8HR IV 10/16/24 14:00 10/21/24 13:59 Hold Insulin Glargine 40 units BID@0700,2200 SC 10/17/24 22:00 10/20/24 22:26 40 UNITS Pantoprazole Sodium 40 mg BID IV 10/17/24 22:00 10/20/24 22:15 40 MG Diagnostic Test (Pha) 1 strip IQ4HR 10/17/24 12:00 10/20/24 20:10 1 STRIP Insulin Human Regular IQ4HR SC 10/17/24 12:00 10/20/24 03:44 9 UNITS Dextrose 50 ml UD PRN IV 10/17/24 11:45 Hydroxyzine Pamoate 25 mg QPM PRN PO 10/18/24 09:15 Quetiapine Fumarate 100 mg HS PO 10/18/24 22:00 10/20/24 22:16 100 MG Sucralfate 1 gm BID@0600,2200 PO 10/19/24 22:00 10/20/24 22:16 1 GM Amlodipine Besylate 10 mg DAILY PO 10/21/24 10:00 Laboratory Results Laboratory Tests 10/19/24 05:18 Chemistry Test 10/20/24 05:39 Albumin 3.5 g/dL (3.2-4.8) Total Protein 6.3 g/dL (5.7-8.2) LFT Test 10/20/24 05:39 Alanine Aminotransferase (ALT) 39 U/L (7-40) Alkaline Phosphatase 159 U/L (46-116) H Aspartate Amino Transferase (AST) 29 U/L (<34) Direct Bilirubin < 0.1 mg/dL (<0.3) Total Bilirubin 0.2 mg/dL (0.2-1.0) Urinalysis Test 10/15/24 10:30 Urine Color Colorless (Yellow) Urine Clarity Clear (Clear) Urine pH 8.0 (5.0-9.0) Urine Specific [place] 1.009 (1.001-1.035) Urine Protein 2+ (Negative) H Urine Ketones Negative (Negative) Urine Blood Trace /uL (Negative) H Urine Nitrite Negative (Negative) Urine Bilirubin Negative (Negative) Urine Urobilinogen Normal mg/dL (Negative) Urine Leukocyte Esterase Negative /uL (Negative) Urine RBC 2 /hpf (0 - 4) Urine Microscopic WBC 3 /HPF (0-5) Urine Squamous Epithelial Cells Few /hpf (<5) Urine Bacteria Few /hpf (None Seen) H Urine Glucose 3+ mg/dL (Normal) H Assessment/Plan My Orders Orders - YADY MOSS MD Procedure Category Date Status Time Amlodipine Tablet PHA 10/21/24 In Process (Norvasc Tablet) 10:00 YADY MOSS MD Oct 20, 2024 23:28
[2024-10-21 01:00] VITALS: BP 119/63; PULSE 63; RESP 17; TEMP 98.2; O2SAT 93
[2024-10-21 05:00] VITALS: BP 138/62; PULSE 68; RESP 17; TEMP 97.8; O2SAT 96
[2024-10-21 06:43] LABS: Calcium 9.2 mg/dL (8.7-10.4); Chloride 105 mmol/L (98-107)
[2024-10-21 06:44] LABS: Anion Gap 10 (5-15); Carbon Dioxide 31 mmol/L (20-31)
[2024-10-21 06:46] LABS: Sodium 146 mmol/L (136-145)
[2024-10-21 06:49] LABS: BUN/Creatinine Ratio 5.2 (10.0-20.0)
[2024-10-21 06:52] LABS: Blood Urea Nitrogen 24 mg/dL (9-23); Glucose 64 mg/dL (74-106)
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
[2024-10-21 08:00] VITALS: PULSE 68; RESP 17; O2SAT 91
[2024-10-21 08:54] VITALS: BP 137/66; PULSE 69; RESP 18; TEMP 97.4; O2SAT 93
[2024-10-21] MEDS: amLODIPine BESYLATE 5 MG TAB PO SCH (11:31)
[2024-10-21 13:00] VITALS: BP 129/59; PULSE 71; RESP 17; TEMP 97.1; O2SAT 94
--- NOTE | 2024-10-21 13:52 | DVHPN2 ---
Eyes: No Pain, No Vision change, No Conjunctivae inflammation, No Eyelid inflammation, No Other, No Redness ENT: No Ear pain, No Ear discharge, No Nose pain, No Nose discharge, No Nose congestion, No Mouth pain, No Mouth swelling, No Throat pain, No Throat swelling, No Other Cardiovascular: Chest Pain Respiratory: Shortness of breath Gastrointestinal: No Nausea, No Vomiting, No Abdominal Pain, No Diarrhea, No Constipation, No Melena, No Hematochezia, No Other Genitourinary: No Dysuria, No Frequency, No Incontinence, No Hematuria, No Retention, No Other Musculoskeletal: No other, No neck pain, No shoulder pain, No arm pain, No back pain, No hand pain, No leg pain, No foot pain Skin: No Rash, No Lesions, No Jaundice, No Bruising, No Other Objective Vitals Vital Signs Date Time Temp Pulse Resp B/P (MAP) Pulse Ox O2 Delivery O2 Flow Rate FiO2 10/21/24 13:00 97.1 71 17 129/59 (82) 94 97.1 10/21/24 08:00 Room Air* 0 21 Intake/Output Intake and Output 10/21/24 07:00 Intake Total 1610 ml Balance 1610 ml Intake Oral 1610 ml # Voids 7 # Bowel Movements 5 Medications Current Medications Medications Dose Ordered Sig/Gregory Route Start Time Stop Time Status Last Admin Dose Admin Multivit/Ca Carb/ B Cmplx/FA/Prenat 1 tab DAILY PO 10/14/24 10:00 10/21/24 11:30 1 TAB Albuterol 2.5 mg Q4HPRN PRN NEB 10/14/24 00:30 Cancel Ipratropium [place] 0.5 mg Q4HPRN PRN NEB 10/14/24 00:30 Cancel Furosemide 40 mg DAILY IV 10/14/24 10:00 10/21/24 11:30 40 MG Atorvastatin Calcium 10 mg HS PO 10/14/24 22:00 10/20/24 22:15 10 MG Levothyroxine Sodium 88 mcg QAM@0600 PO 10/14/24 06:00 10/21/24 05:15 88 MCG Sodium Chloride 10 ml Q8HR IV 10/14/24 06:00 10/21/24 06:01 10 ML Ondansetron HCl 4 mg Q4HP PRN IV 10/14/24 00:30 10/20/24 12:42 4 MG Docusate Sodium 100 mg BIDPRN PRN PO 10/14/24 00:30 Acetaminophen 650 mg Q6HP PRN PO 10/14/24 00:30 10/17/24 12:35 650 MG Nitroglycerin 0.4 mg Q5MINP PRN SL 10/14/24 00:30 Morphine Sulfate 2 mg Q30M PRN IV 10/14/24 00:30 10/15/24 06:29 2 MG Clopidogrel Bisulfate 75 mg DAILY PO 10/14/24 10:00 10/21/24 11:31 75 MG Ceftriaxone Sodium 50 ml @ 100 mls/hr DAILY@09 IV 10/15/24 09:00 10/21/24 11:29 100 MLS/HR Acetaminophen/ Hydrocodone Bitart 1 tab Q6HP PRN PO 10/15/24 10:30 10/17/24 19:58 1 TAB Nifedipine 60 mg DAILY PO 10/16/24 10:00 10/21/24 11:32 60 MG Carvedilol 25 mg Q12H PO 10/15/24 19:00 10/21/24 06:09 25 MG Prochlorperazine Maleate 10 mg QIDP PRN PO 10/15/24 19:45 10/20/24 15:15 10 MG Guaifenesin/ Dextromethorphan 10 ml Q4HP PRN PO 10/16/24 07:15 10/18/24 12:00 10 ML Clonidine HCl 0.1 mg Q6HP PRN PO 10/16/24 09:45 10/20/24 12:42 0.1 MG Ketorolac Tromethamine 15 mg Q8HR IV 10/16/24 14:00 10/21/24 13:59 Hold Insulin Glargine 40 units BID@0700,2200 SC 10/17/24 22:00 10/20/24 22:26 40 UNITS Pantoprazole Sodium 40 mg BID IV 10/17/24 22:00 10/21/24 11:30 40 MG Diagnostic Test (Pha) 1 strip IQ4HR 10/17/24 12:00 10/21/24 12:28 1 STRIP Insulin Human Regular IQ4HR SC 10/17/24 12:00 10/20/24 03:44 9 UNITS Dextrose 50 ml UD PRN IV 10/17/24 11:45 Hydroxyzine Pamoate 25 mg QPM PRN PO 10/18/24 09:15 Quetiapine Fumarate 100 mg HS PO 10/18/24 22:00 10/20/24 22:16 100 MG Sucralfate 1 gm BID@0600,2200 PO 10/19/24 22:00 10/21/24 05:16 1 GM Amlodipine Besylate 10 mg DAILY PO 10/21/24 10:00 10/21/24 11:31 10 MG Laboratory Results Laboratory Tests 10/19/24 05:18 10/21/24 04:55 Chemistry Test 10/21/24 04:55 Calcium Level 9.2 mg/dL (8.7-10.4) Urinalysis Test 10/15/24 10:30 Urine Color Colorless (Yellow) Urine Clarity Clear (Clear) Urine pH 8.0 (5.0-9.0) Urine Specific [place] 1.009 (1.001-1.035) Urine Protein 2+ (Negative) H Urine Ketones Negative (Negative) Urine Blood Trace /uL (Negative) H Urine Nitrite Negative (Negative) Urine Bilirubin Negative (Negative) Urine Urobilinogen Normal mg/dL (Negative) Urine Leukocyte Esterase Negative /uL (Negative) Urine RBC 2 /hpf (0 - 4) Urine Microscopic WBC 3 /HPF (0-5) Urine Squamous Epithelial Cells Few /hpf (<5) Urine Bacteria Few /hpf (None Seen) H Urine Glucose 3+ mg/dL (Normal) H Assessment/Plan My Orders Orders - YADY MOSS MD Procedure Category Date Status Time Amlodipine Tablet PHA 10/21/24 In Process (Norvasc Tablet) 10:00 YADY MOSS MD Oct 21, 2024 13:52
--- NOTE | 2024-10-21 13:53 | DVHPN2 ---
Progress Note - Dictate Date Seen: Oct 21, 2024 Has the PT tested + for MRSA If YES, has PT been informed?: No Medical Necessity Reason Pt with a Central, PICC or Fol: No Subjective no new symptoms vital signs Vital Sign Date Time Temp Pulse Resp B/P (MAP) Pulse Ox O2 Delivery O2 Flow Rate FiO2 10/21/24 13:00 97.1 71 17 129/59 (82) 94 97.1 10/21/24 08:00 Room Air* 0 21 Total Intake and Output 10/20/24 10/20/24 10/21/24 15:00 23:00 07:00 Intake Total 920 ml 690 ml Balance 920 ml 690 ml medications Current Medications Medications Dose Ordered Sig/Gregory Route Start Time Stop Time Status Last Admin Dose Admin Multivit/Ca Carb/ B Cmplx/FA/Prenat 1 tab DAILY PO 10/14/24 10:00 10/21/24 11:30 1 TAB Albuterol 2.5 mg Q4HPRN PRN NEB 10/14/24 00:30 Cancel Ipratropium [place] 0.5 mg Q4HPRN PRN NEB 10/14/24 00:30 Cancel Furosemide 40 mg DAILY IV 10/14/24 10:00 10/21/24 11:30 40 MG Atorvastatin Calcium 10 mg HS PO 10/14/24 22:00 10/20/24 22:15 10 MG Levothyroxine Sodium 88 mcg QAM@0600 PO 10/14/24 06:00 10/21/24 05:15 88 MCG Sodium Chloride 10 ml Q8HR IV 10/14/24 06:00 10/21/24 06:01 10 ML Ondansetron HCl 4 mg Q4HP PRN IV 10/14/24 00:30 10/20/24 12:42 4 MG Docusate Sodium 100 mg BIDPRN PRN PO 10/14/24 00:30 Acetaminophen 650 mg Q6HP PRN PO 10/14/24 00:30 10/17/24 12:35 650 MG Nitroglycerin 0.4 mg Q5MINP PRN SL 10/14/24 00:30 Morphine Sulfate 2 mg Q30M PRN IV 10/14/24 00:30 10/15/24 06:29 2 MG Clopidogrel Bisulfate 75 mg DAILY PO 10/14/24 10:00 10/21/24 11:31 75 MG Ceftriaxone Sodium 50 ml @ 100 mls/hr DAILY@09 IV 10/15/24 09:00 10/21/24 11:29 100 MLS/HR Acetaminophen/ Hydrocodone Bitart 1 tab Q6HP PRN PO 10/15/24 10:30 10/17/24 19:58 1 TAB Nifedipine 60 mg DAILY PO 10/16/24 10:00 10/21/24 11:32 60 MG Carvedilol 25 mg Q12H PO 10/15/24 19:00 10/21/24 06:09 25 MG Prochlorperazine Maleate 10 mg QIDP PRN PO 10/15/24 19:45 10/20/24 15:15 10 MG Guaifenesin/ Dextromethorphan 10 ml Q4HP PRN PO 10/16/24 07:15 10/18/24 12:00 10 ML Clonidine HCl 0.1 mg Q6HP PRN PO 10/16/24 09:45 10/20/24 12:42 0.1 MG Ketorolac Tromethamine 15 mg Q8HR IV 10/16/24 14:00 10/21/24 13:59 Hold Insulin Glargine 40 units BID@0700,2200 SC 10/17/24 22:00 10/20/24 22:26 40 UNITS Pantoprazole Sodium 40 mg BID IV 10/17/24 22:00 10/21/24 11:30 40 MG Diagnostic Test (Pha) 1 strip IQ4HR 10/17/24 12:00 10/21/24 12:28 1 STRIP Insulin Human Regular IQ4HR SC 10/17/24 12:00 10/20/24 03:44 9 UNITS Dextrose 50 ml UD PRN IV 10/17/24 11:45 Hydroxyzine Pamoate 25 mg QPM PRN PO 10/18/24 09:15 Quetiapine Fumarate 100 mg HS PO 10/18/24 22:00 10/20/24 22:16 100 MG Sucralfate 1 gm BID@0600,2200 PO 10/19/24 22:00 10/21/24 05:16 1 GM Amlodipine Besylate 10 mg DAILY PO 10/21/24 10:00 10/21/24 11:31 10 MG objective Gen: NAD HEENT: NC, AT Lungs: crackles lung bases Cardiac: rrr, no murmur Abd: + PD cath, exit site clear Ext: + 1 edema b/l legs Neuro: AAOx3, no focal deficits laboratory and microbiology Laboratory Tests 10/21/24 04:55 10/19/24 05:18 Test 10/21/24 04:55 Range/Units Serum Glucose 64 L 74-106 mg/dL Assessment/Plan ESRD on PD HTN Hypokalemia Chest pain r/o ACS. troponin negative hypothyroidism Gastritis Anemia of CKD Hyperphosphatemia secondary hyperparathyroidism Obesity Plan: continue peritoneal dialysis. she is doing her own dialysis overnight with the her cycler s/p EGD on 10/19/24 which shows mild gastritis cardiology consult appreciated supplement KCl avoid low K diet Continue Coreg 25 mg PO BID Continue nifedipine ER 60 mg daily Patient can be discharged from nephrology perspective after K supplementation Dietary Evaluation Review Comments: Estimated energy absorption from CAPD is 400-900kcal/d. Pt was told to lose weight in order to be on transplant waiting list. Pt has hyperglycemia 2ndary to CAPD, To lose wt, she needs to learn how to increase physical activities and reduce high CHO food. A high protein low CHO diet is recommended. A serum Phos lab value will aid assessing if she needs a dietary phos restriction.. Expected Outcomes/Goals: Gradual wt loss as desired. Plan discussed with: Patient BRUNA MG MD Oct 21, 2024 13:53
--- NOTE | 2024-10-21 14:07 | MEDREC ---
[facility] ASP Intervention Section I [facility] ASP Intervention: Review courses of therapy (PLEASE CONSIDER D/C ANTIBIOTIC IN ABSENCE OF BACTERIAL INFECTION ) TONY RIVERO PHARMACIST Oct 21, 2024 14:07
[2024-10-21] MEDS: POTASSIUM CHL 20MEQ/100ML 100 ML IV ONE (14:25)
[2024-10-21] MEDS ORDERED: SUCR1SUS26 PO (14:38)
--- NOTE | 2024-10-21 14:39 | DVHDS2 ---
Discharge Summary Date of Admission Oct 14, 2024 at 00:17 Date of Discharge: Oct 21, 2024 Labs/Diagnostic Data: Laboratory Results Test 10/21/24 12:24 10/21/24 04:55 10/20/24 05:39 10/19/24 05:18 POC Glucose 129 mg/dl (70-106) Sodium Level 146 mmol/L (136-145) Potassium Level 3.0 mmol/L (3.5-5.1) Chloride Level 105 mmol/L (98-107) Carbon Dioxide Level 31 mmol/L (20-31) Anion Gap 10 (5-15) Blood Urea Nitrogen 24 mg/dL (9-23) Creatinine 4.66 mg/dL (0.550-1.02) Glomerular Filtration Rate Calc 10 mL/min (>90) BUN/Creatinine Ratio 5.2 (10.0-20.0) Serum Glucose 64 mg/dL (74-106) Calcium Level 9.2 mg/dL (8.7-10.4) Total Bilirubin 0.2 mg/dL (0.2-1.0) Direct Bilirubin < 0.1 mg/dL (<0.3) Aspartate Amino Transferase (AST) 29 U/L (<34) Alanine Aminotransferase (ALT) 39 U/L (7-40) Alkaline Phosphatase 159 U/L (46-116) Total Protein 6.3 g/dL (5.7-8.2) Albumin 3.5 g/dL (3.2-4.8) White Blood Count 8.6 10^3/uL (4.4-10.8) Red Blood Count 2.99 10^6/uL (4.0-5.20) Hemoglobin 9.8 g/dL (12.2-16.2) Hematocrit 28.1 % (36.0-46.0) Mean Corpuscular Volume 93.9 fL (80.0-100.0) Mean Corpuscular Hemoglobin 32.6 pg (28.0-32.0) Mean Corpuscular Hemoglobin Concent 34.7 g/dL (32.0-36.0) Red Cell Distribution Width 15.0 % (11.8-14.3) Platelet Count 175 10^3/uL (140-450) Mean Platelet Volume 8.8 fL (6.9-10.8) Neutrophils (%) (Auto) 66.1 % (37.0-80.0) Lymphocytes (%) (Auto) 21.4 % (10.0-50.0) Monocytes (%) (Auto) 8.5 % (0.0-12.0) Eosinophils (%) (Auto) 3.5 % (0.0-7.0) Basophils (%) (Auto) 0.5 % (0.0-2.0) Neutrophils # (Auto) 5.7 10 ^3/uL (1.6-8.6) Lymphocytes # (Auto) 1.8 10 ^3/uL (0.4-5.4) Monocytes # (Auto) 0.7 10 ^3/uL (0-1.3) Eosinophils # (Auto) 0.3 10 ^3/uL (0-0.8) Basophils # (Auto) 0 10 ^3/uL (0-0.2) Nucleated Red Blood Cells 0.0 % Test 10/16/24 05:46 10/15/24 14:50 10/15/24 10:30 10/13/24 19:42 Hemoglobin A1c 7.3 % A1C (<5.7) Magnesium Level 2.1 mg/dL (1.6-2.6) Thyroid Stimulating Hormone (TSH) 2.42 uIU/mL (0.55-4.78) D-Dimer, Quantitative 0.38 mg/L FEU (0.0-0.49) Urine Color Colorless (Yellow) Urine Clarity Clear (Clear) Urine pH 8.0 (5.0-9.0) Urine Specific [place] 1.009 (1.001-1.035) Urine Protein 2+ (Negative) Urine Ketones Negative (Negative) Urine Blood Trace /uL (Negative) Urine Nitrite Negative (Negative) Urine Bilirubin Negative (Negative) Urine Urobilinogen Normal mg/dL (Negative) Urine Leukocyte Esterase Negative /uL (Negative) Urine RBC 2 /hpf (0 - 4) Urine Microscopic WBC 3 /HPF (0-5) Urine Squamous Epithelial Cells Few /hpf (<5) Urine Bacteria Few /hpf (None Seen) Urine Glucose 3+ mg/dL (Normal) Troponin I High Sensitivity 13 ng/L (</=34) Test 10/13/24 18:37 B-Type Natriuretic Peptide 292.99 pg/mL (0-100) Other Laboratory Tests 10/21/24 04:55 10/19/24 05:18 Final Diagnosis/Problems List Volume overload COPD exacerbation Discharge Disposition: Home Discharge Instruct/Medications Diet: Renal Activity: No Restrictions, As Tolerated Follow Up/Referral: pcp 1-2 weeks Medications: Resume home meds Discharge Statement: "Patient was advised to return to the ER or call 911 if any headaches, dizziness, shortness of breath, chest pain, abdominal pain, bleeding, fevers, or worsening of medical condition. Patient was counseled about treatment plan, medications, possible side effects, patientverbalized understanding. All questions were answered to the best of my ability. This discharge took greater then 30 minutes in planning, reviewing documentation, counseling the patient, and discussing with other team members." ASSESSMENT ASSESSMENT Assessment Volume overload COPD exacerbation YADY MOSS MD Oct 21, 2024 14:39
== END 2024-10-21 15:40 | disposition home or self-care (01) | DRG 291 ==
LOC: ER 17:48 → EDBD 17:48 → EDUNIT# 17:48 → OVERFLOW 10-14 00:17 → TELE-CENTR 10-15 05:14 → TELE-EAST 10-19 20:30
PROVIDERS: ADMIT Internal Medicine; ATTEND Internal Medicine
PROC: 0DJ08ZZ Inspection of Upper Intestinal Tract, Via Natural or Artificial Opening Endoscopic (ICD-10-PCS; principal; 2024-10-19 11:44)
DX: I13.2 Hypertensive heart and chronic kidney disease with heart failure and with stage 5 chronic kidney disease, or end stage renal disease (principal); I50.43 Acute on chronic combined systolic (congestive) and diastolic (congestive) heart failure; N18.6 End stage renal disease; J44.1 Chronic obstructive pulmonary disease with (acute) exacerbation; N25.81 Secondary hyperparathyroidism of renal origin; Z68.41 Body mass index [BMI] 40.0-44.9, adult; K29.70 Gastritis, unspecified, without bleeding; E87.6 Hypokalemia; E03.9 Hypothyroidism, unspecified; D72.829 Elevated white blood cell count, unspecified; D63.1 Anemia in chronic kidney disease; E83.39 Other disorders of phosphorus metabolism; I16.0 Hypertensive urgency; E78.5 Hyperlipidemia, unspecified; F41.9 Anxiety disorder, unspecified; E66.01 Morbid (severe) obesity due to excess calories; I37.1 Nonrheumatic pulmonary valve insufficiency; E11.22 Type 2 diabetes mellitus with diabetic chronic kidney disease; K21.9 Gastro-esophageal reflux disease without esophagitis; E11.65 Type 2 diabetes mellitus with hyperglycemia; Z99.2 Dependence on renal dialysis; Z79.4 Long term (current) use of insulin; Z79.899 Other long term (current) drug therapy; Z98.891 History of uterine scar from previous surgery; Z90.710 Acquired absence of both cervix and uterus; Z90.49 Acquired absence of other specified parts of digestive tract; Z79.02 Long term (current) use of antithrombotics/antiplatelets; Z83.3 Family history of diabetes mellitus; Z82.49 Family history of ischemic heart disease and other diseases of the circulatory system; Z80.0 Family history of malignant neoplasm of digestive organs; E87.70 Fluid overload, unspecified
CPT/HCPCS: 36415; 71045; 76705; 80048; 80053; 80076; 81001; 82962; 83036; 83735; 83880; 84443; 84484; 85025; 85379; 86038; 93005; 93306; 94640; G0378; J1100; J1815; J2003; J2405; J2470; J2704; J3480; J3490; Q0164

== ENCOUNTER 2024-11-01 14:50 | Emergency (ER) | payer MEDICARE, MEDICAID ==
[~2024-11-01] VITALS: Ht 157.5 cm; Wt 109.5 kg
[~2024-11-01 14:50] MED LIST changes: -ATOR20TA50 PO; -CARV12.544 PO; -FERR1TAB17 PO; +HYDR-3682 PO; -ICOS1CAP3 PO; -INSU100I61 SC; -LEVO500T91 PO; -LIDO1PAD55 TOP; -PANT40T PO; -QUET400T13 PO; +SUCR1SUS26 PO
[2024-11-01 16:08] LABS: Hematocrit 33.4 % (36.0-46.0); Hemoglobin 11.3 g/dL (12.2-16.2); Mean Corpuscular Hemoglobin 31.4 pg (28.0-32.0); Mean Corpuscular Volume 92.9 fL (80.0-100.0); Nucleated Red Blood Cells % 0.1 %
--- NOTE | 2024-11-01 16:12 | ED.PDOC ---
History of Present Illness HPI Comments 59-year-old female with history of end-stage renal disease on peritoneal dialysis, hypertension, diabetes, CHF, COPD brought in by self complaining of right breast pain for the past 6 weeks. Patient states she came to the hospital recently for the same complaint and was admitted with multiple other diagnoses, however the breast pain was never addressed. The patient states she attempted to follow-up with her primary physician after hospital discharge, however he does not have an available appointment until November. Patient states that the pain is so severe that she requires [place] and lidocaine patches daily for pain control. She denies any discoloration, nipple discharge or swelling, but does state she feels mass in the area that is painful. She denies fever, recent breast trauma or other symptoms. She also states she was advised to follow-up with her doctor for repeat potassium level after she was discharged, however she has not yet followed up due to inability to obtain a sooner appointment. Chief Complaint: Breast pain Time Seen by MD: 15:11 Primary Care Provider: HEAD Allergies: Coded Allergies: NO KNOWN ALLERGIES (Unverified , 02/21/23) Home Meds Active Scripts Sucralfate (CARAFATE SUSP) 1 Gm/10 Ml Ss, 1 GM PO BID@0600,2200, #120 ML 5 Refills Prov:YADY MOSS MD 10/21/24 Bumetanide (Bumex Tablet) 1 Mg Tab, 1 MG PO BID for 30 Days, #60 TAB BLK BX WARNING-CAN LEAD TO PROFOUND DIURESIS WITH FLUID- ELECTROLYTE LOSS Prov:OMID MISHRA NP 03/04/23 Reported Medications Hydroxyzine Hcl (Hydroxyzine Hcl) 25 Mg Tab, 25 MG PO HS for 30 Days, MG 10/16/24 Diclofenac Sodium (Topical) (Voltaren Arthritis Pain) 1 % Gel, 1 APPLIC TOP Q8HR PRN for PAIN for 30 Days, #100 APPLY TO AFFECTED AREA TOPICALLY EVERY 8 HOURS NEEDED FOR PAIN. 02/29/24 Clonidine Hydrochloride (Clonidine Hcl) 0.1 Mg Tab, 1 TAB PO DAILY for 30 Days, #30 02/29/24 Insulin Glargine (Lantus Solostar) 100 Unit/Ml Inj, 40 UNIT SC BID 02/28/24 Nifedipine (Nifedipine Er) 90 Mg Tab, 90 MG PO DAILY 02/28/24 Furosemide (Furosemide) 40 Mg Tab, 80 MG PO BIDD 02/28/24 Levothyroxine Sodium (Levothyroxine Sodium) 25 Mcg Tab, 75 MCG PO QAM, % 02/28/24 B-Complex W/ C & Folic Acid (Shelley-Omid) Tab, 1 TAB PO DAILY for 30 Days, #30 02/28/24 Clopidogrel Bisulfate (CLOPIDOGREL) 75 Mg Tab, 75 MG PO DAILY, MG 02/28/24 Calcitriol (Calcitriol) 0.25 Mcg Cap, 0.25 MCG PO DAILY, MCG 02/28/24 Metolazone (Metolazone) 5 Mg Tab, 1 TAB PO MWF for 30 Days, #15 TAKE 1 TABLET BY MOUTH 3 TIMES A WEEK ON TUESDAY, TUESDAY, AND TUESDAY. 02/28/24 Docusate Sodium (Sb Docusate Sodium) 100 Mg Cap, 100 MG PO BID, CAP 02/28/24 Nifedipine (Nifedipine Er) 60 Mg Tab, 1 TAB PO DAILY, #30 TAB 5 Refills 02/21/23 Atorvastatin Calcium (Lipitor) 20 Mg Tab, 1 TAB PO DAILY, #90 TAB 1 Refill 02/21/23 Clopidogrel Bisulfate (Plavix) 75 Mg Tab, 75 MG PO DAILY, TAB 02/21/23 Lisinopril (Lisinopril) 20 Mg Tab, 1 TAB PO DAILY, #30 TAB 5 Refills 02/21/23 Hydrocodone-Acetaminophen (Hydrocodone/Acetaminophen 10-325 mg) 1 Tab Tab, 1 TAB PO TID, TAB 02/21/23 Cyclobenzaprine Hcl (Cyclobenzaprine Hcl) 10 Mg Tab, 53 MG PO HS PRN for A GITATION for 30 Days, MG 02/21/23 Ferrous Sulfate (Ferrous Sulfate) 325 Mg Tab, 325 MG PO DAILY for 30 Days, MG 02/21/23 Quetiapine Fumerate (QUETIAPINE FUMARATE) 300 Mg Tab, 300 MG PO for 30 Days, MG 02/21/23 Gabapentin (Gabapentin) 300 Mg Cap, 1 CAP PO TID, #90 CAP 5 Refills 02/21/23 Levothyroxine Sodium (Levothyroxine Sodium) 88 Mcg Tab, 75 MCG PO QAM for 30 Days, MCG 02/21/23 Carvedilol (Coreg) 12.5 Mg Tab, 1 TAB PO BID, #180 TAB 1 Refill 02/21/23 Pantoprazole Sodium Sesquihydr (Protonix) 40 Mg Tab, 40 MG PO DAILY, #30 TAB 02/21/23 Past Medical History PAST MEDICAL HISTORY: COPD, DM, ESRD, GERD, High Lipids, HTN, Thyroid Surgical History: Cholecystectomy, , Hysterectomy, Tonsillectomy Surgical History (Other): Peritoneal dialysis catheter insertion FRAUD PREVENTION ANALYST History: No Pertinent FRAUD PREVENTION ANALYST History Family History Family History: Reviewed,noncontributory to illness Social History Smoker: Non-Smoker Alcohol: Denies ETOH Use Drugs: Denies Drug Use Lives In: Home All Other Systems: Reviewed and Negative (Comprehensive systems review obtained and negative except for what is stated in the HPI.) Physical Exam General Appearance: No Apparent Distress, Obese HEENT: Other (Pupils and face symmetric. Moist mucous membranes.) Neck: Full Range of Motion, Normal Inspection Respiratory: Lungs Clear, No Accessory Muscle Use, No Respiratory Distress, Normal Breath Sounds Cardiovascular: No Edema, No JVD, Regular Rate/Rhythm Breast Exam: (R) Mass (Tender mobile right breast mass underlying the right breast at the right upper quadrant and 12 o'clock position.), (R) Tenderness Gastrointestinal: Non Tender, Soft Genitalia: Deferred Pelvic: Deferred Rectal: Deferred Extremities: Normal inspection, Normal range of motion, Non-tender, No pedal edema Neurologic: Alert (Oriented x4), Normal Affect, Normal Mood Cerebellar Function: NOT DONE Reflexes: NOT DONE Skin: Dry, Normal Color, Warm Lymphatic: NOT DONE Was a procedure done? Was a procedure done?: No Differential Dx Considerations may include: Mastitis, neoplasm, abscess, among others X-Ray, Labs, Meds, VS Vital Signs Date Time Temp Pulse Resp B/P (MAP) Pulse Ox O2 Delivery O2 Flow Rate FiO2 11/01/24 18:09 76 18 98 Room Air 11/01/24 18:09 98.6 76 18 121/79 (93) 98 98.6 11/01/24 15:10 98.0 74 18 137/46 (76) 99 98.0 Lab Test 11/01/24 15:59 11/01/24 15:11 Range/Units White Blood Count 11.3 H 4.4-10.8 10^3/uL Red Blood Count 3.59 L 4.0-5.20 10^6/uL Hemoglobin 11.3 L 12.2-16.2 g/dL Hematocrit 33.4 L 36.0-46.0 % Mean Corpuscular Volume 92.9 80.0-100.0 fL Mean Corpuscular Hemoglobin 31.4 28.0-32.0 pg Mean Corpuscular Hemoglobin Concent 33.8 32.0-36.0 g/dL Red Cell Distribution Width 14.3 11.8-14.3 % Platelet Count 275 140-450 10^3/uL Mean Platelet Volume 8.2 6.9-10.8 fL Neutrophils (%) (Auto) 69.5 37.0-80.0 % Lymphocytes (%) (Auto) 20.8 10.0-50.0 % Monocytes (%) (Auto) 5.4 0.0-12.0 % Eosinophils (%) (Auto) 3.3 0.0-7.0 % Basophils (%) (Auto) 1.0 0.0-2.0 % Neutrophils # (Auto) 7.9 1.6-8.6 10 ^3/uL Lymphocytes # (Auto) 2.3 0.4-5.4 10 ^3/uL Monocytes # (Auto) 0.6 0-1.3 10 ^3/uL Eosinophils # (Auto) 0.4 0-0.8 10 ^3/uL Basophils # (Auto) 0.1 0-0.2 10 ^3/uL Nucleated Red Blood Cells 0.1 % Sodium Level 141 136-145 mmol/L Potassium Level 4.0 3.5-5.1 mmol/L Chloride Level 96 L 98-107 mmol/L Carbon Dioxide Level 35 H 20-31 mmol/L Anion Gap 10 5-15 Blood Urea Nitrogen 24 H 9-23 mg/dL Creatinine 4.79 H 0.550-1.02 mg/dL Glomerular Filtration Rate Calc 10 >90 mL/min BUN/Creatinine Ratio 5.0 L 10.0-20.0 Serum Glucose 71 L 74-106 mg/dL Calcium Level 9.3 8.7-10.4 mg/dL POC Glucose 83 70-106 mg/dl [facility] [id number] [place] [address] Ph: [phone] DIAGNOSTIC IMAGING Diagnostic Imaging Report : [id number] Signed PATIENT: CLAUDIA MONTALVO Magnus ACCT: [id number] UNIT: [id number] : 1965 LOC: ER ROOM / BED: / AGE / SEX: 59 / F ADM STATUS: REG ER SERVICE 1535 ORDERING PHYSICIAN: AIMEE MCWILLIAMS MD PROCEDURE(s): RBRST - R BREAST ULTRASOUND REASON: R breast tender mass RUQ>LUQ ORDER NUMBER(s): [id number], ACCESSION NUMBER(s): [id number] US OF THE RIGHT BREAST INDICATION: R breast tender mass RUQ>LUQ TECHNIQUE: All 4 quadrants, subareolar region and axillary region of the RIGHT breast were evaluated with ultrasound COMPARISON: None FINDINGS: No solid or suspicious masses. No areas of architectural distortion. No malignant adenopathy. No dominant cysts are present. IMPRESSION: There is no sonographic evidence for malignancy. Bilateral diagnostic mammography recommended. ACR Bi Rads Category:Category 0-"INCOMPLETE" (Needs Additional Imaging Evaluation)) ATED BY: TITUS SAAVEDRA MD DICTATED DATE/TIME: 11/01/24 1648 X-Ray, Labs, Meds, VS Comment 59-year-old female with a history of end-stage renal disease on peritoneal dialysis, diabetes, hypertension, dyslipidemia, COPD and CHF presenting for follow-up of right breast pain that she states was not addressed on her recent admission. Patient also requesting follow-up potassium level. Vitals unremarkable Exam remarkable for tender right breast mass in the right upper quadrant and 12 o'clock position Rhythm strip independently interpreted by me: Sinus rhythm, rate no ectopy. Right breast ultrasound IMPRESSION: There is no sonographic evidence for malignancy. Bilateral diagnostic mammography recommended. ACR Bi Rads Category:Category 0-"INCOMPLETE" (Needs Additional Imaging Evaluation)) CBC remarkable for WBC 11.3, basic metabolic panel remarkable for BUN 24, cre atinine 4.7, glucose 71 Patient provided with p.o. juice. Patient had an unchanged exam on re-evaluation. Vitals were stable. Patient was provided with a prescription for a diagnostic mammogram. She was advised to take it to [facility] for an appointment. Patient was also advised to follow-up with Dr. Richey in 1-2 days. Time of 1ST Reevaluation: 16:07 Reevaluation 1ST: Unchanged Time of 2ND Reevaluation: 18:00 Reevaluation 2ND: Unchanged Patient Education/Counseling: Diagnosis, Treatment, Need For Follow Up Family Education/Counseling: No Family Present SEPSIS Sepsis Screen Physician Orders R Breast Ultrasound (11/01/24 15:35) Communication Order (11/01/24 17:53) Vital Signs Date Time Temp Pulse Resp B/P (MAP) Pulse Ox O2 Delivery O2 Flow Rate FiO2 11/01/24 18:09 76 18 98 Room Air 11/01/24 18:09 98.6 76 18 121/79 (93) 98 98.6 11/01/24 15:10 98.0 74 18 137/46 (76) 99 98.0 Laboratory Tests Test 11/01/24 15:59 White Blood Count 11.3 10^3/uL (4.4-10.8) H Departure 1 Departure Time of Disposition: 18:00 Impression: Primary Impression: Pain of right breast Disposition: 01 HOME / SELF CARE / HOMELESS Condition: Stable Referrals: EAGLE RICHEY MD Additional Instructions: Your blood tests showed your potassium is normal. Your breast ultrasound was unremarkable. I have enclosed the report below. You still need a diagnostic mammogram. Follow-up with Dr. Richey 1-2 days. Follow-up with your primary doctor as soon as possible. Follow-up for diagnostic breast mammogram at [facility] [address] [place] [address] Dr. Ruiz [address] [place] [address], . [place] [address] Ph: [phone] DIAGNOSTIC IMAGING Diagnostic Imaging Report : [id number] Signed PATIENT: CLAUDIA MONTALVO ACCT: [id number] UNIT: [id number] : 1965 LOC: ER ROOM / BED: / AGE / SEX: 59 / F ADM STATUS: REG ER SERVICE 1535 ORDERING PHYSICIAN: AIMEE MCWILLIAMS MD PROCEDURE(s): RBRST - R BREAST ULTRASOUND REASON: R breast tender mass RUQ>LUQ ORDER NUMBER(s): [id number], ACCESSION NUMBER(s): [id number] US OF THE RIGHT BREAST INDICATION: R breast tender mass RUQ>LUQ TECHNIQUE: All 4 quadrants, subareolar region and axillary region of the RIGHT breast were evaluated with ultrasound COMPARISON: None FINDINGS: No solid or suspicious masses. No areas of architectural distortion. No malignant adenopathy. No dominant cysts are present. IMPRESSION: There is no sonographic evidence for malignancy. Bilateral diagnostic mammography recommended. ACR Bi Rads Category:Category 0-"INCOMPLETE" (Needs Additional Imaging Evaluation)) ATED BY: TITUS SAAVEDRA MD DICTATED DATE/TIME: 11/01/24 1645 Discharged With: Self Critical Care Note Critical Care Time?: No Stability Stability form required: No Heart Score Heart Score: Heart Score Response (Comments) Value History N/A 0 EKG N/A 0 Age N/A 0 Risk Factors N/A 0 Troponin N/A 0 Total 0 AIMEE MCWILLIAMS MD Nov 01, 2024 16:12
[2024-11-01 16:17] LABS: Potassium 4.0 mmol/L (3.5-5.1); Sodium 141 mmol/L (136-145)
[2024-11-01 16:18] LABS: Anion Gap 10 (5-15)
[2024-11-01 16:19] LABS: Calcium 9.3 mg/dL (8.7-10.4)
[2024-11-01 16:24] LABS: BUN/Creatinine Ratio 5.0 (10.0-20.0)
[2024-11-01 16:25] LABS: Blood Urea Nitrogen 24 mg/dL (9-23); Carbon Dioxide 35 mmol/L (20-31); Chloride 96 mmol/L (98-107); Glucose 71 mg/dL (74-106)
--- NOTE | 2024-11-01 16:48 | DVH ---
US OF THE RIGHT BREAST INDICATION: R breast tender mass RUQ>LUQ TECHNIQUE: All 4 quadrants, subareolar region and axillary region of the RIGHT breast were evaluated with ultrasound COMPARISON: None FINDINGS: No solid or suspicious masses. No areas of architectural distortion. No malignant adenopathy. No dominant cysts are present. IMPRESSION: There is no sonographic evidence for malignancy. Bilateral diagnostic mammography recommended. ACR Bi Rads Category:Category 0-"INCOMPLETE" (Needs Additional Imaging Evaluation))
[2024-11-01 18:09] VITALS: BP 121/79; PULSE 76; RESP 18; TEMP 98.6; O2SAT 98
== END 2024-11-01 18:24 | disposition home or self-care (01) ==
LOC: ER 14:50
DX: N64.4 Mastodynia (principal); I13.2 Hypertensive heart and chronic kidney disease with heart failure and with stage 5 chronic kidney disease, or end stage renal disease; E11.22 Type 2 diabetes mellitus with diabetic chronic kidney disease; I50.9 Heart failure, unspecified; N18.6 End stage renal disease; J44.9 Chronic obstructive pulmonary disease, unspecified; N63.10 Unspecified lump in the right breast, unspecified quadrant; Z99.2 Dependence on renal dialysis; Z90.49 Acquired absence of other specified parts of digestive tract; Z79.899 Other long term (current) drug therapy; Z90.710 Acquired absence of both cervix and uterus; Z90.89 Acquired absence of other organs; Z98.890 Other specified postprocedural states
CPT/HCPCS: 36415; 76642; 80048; 82947; 82962; 85025